=== PATIENT | female | born 1990 | race Caucasian/White ===

== ENCOUNTER 2017-01-23 17:43 | Emergency (ER) | payer BC, MEDICAID ==
[2017-01-23 18:00] VITALS: BP 157/106
[2017-01-23] MEDS ORDERED: Acetaminophen/HYDROcodone 325-5 MG Tab PO ONE (18:28)
--- NOTE | 2017-01-23 18:35 | EDM.PDOC ---
ED HPI LOWER BACK PAIN/INJURY - General Chief Complaint: Back Pain or Injury Stated Complaint: LOWER BACK PAIN Time Seen by Provider: 01/23/17 18:07 Source of Information: Reports: Patient, RN notes reviewed - History of Present Illness INITIAL COMMENTS - FREE TEXT/NARRATIVE: 26 old female comes in with back pain. She states she twisted her body getting into or out of a car with sudden onset of left mid back. Pain does not radiate. It is not bad at rest but she states the pain is "severe with any type of motion. There's been no fall or injury. She has had similar back pains in the past. She did take some Excedrin a while ago and getting some but "not a lot of relief". She claims she is allergic to anti-inflammatories. She states that she breaks out in a rash. 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: Reports: 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 Neurological History: Reports: Headaches, chronic, Migraines - Past Surgical History HEENT Surgical History: Reports: Tonsillectomy GI Surgical History: Reports: Other (see below) Other GI Surgeries/Procedures: EXPLORATORY LAP Social & Family History - Family History Cardiac: Reports: Hypertension Endocrine/Metabolic: Reports: Diabetes, type II Oncologic: Reports: Leukemia - Tobacco Use Smoking Status *Q: Current Some Day Smoker Years of Tobacco use: 5 Packs/Tins Daily: 0.5 Used Tobacco, but Quit: No Second Hand Smoke Exposure: No - Caffeine Use Caffeine Use: Reports: Energy drinks, Soda - Alcohol Use Days Per Week of Alcohol Use: 0 - Recreational Drug Use Recreational Drug Use: No Drug Use in Last 12 Months: No ED ROS GENERAL - Review of Systems Review Of Systems: See Below Constitutional: Denies: fever, chills, diaphoresis HEENT: Reports: No symptoms Respiratory: Denies: Shortness of Breath, Pleuritic Chest Pain Cardiovascular: Denies: Chest pain GI/Abdominal: Denies: Abdominal pain, Nausea, Vomiting Musculoskeletal: Reports: back pain Neurological: Denies: Numbness, Tingling ED EXAM,LOWER BACK PAIN/INJURY - Physical Exam Exam: See Below General Appearance: alert, mild distress Throat/Mouth: Normal inspection Head: atraumatic Neck: supple, full range of motion Respiratory/Chest: lungs clear, normal breath sounds Cardiovascular: regular rate, rhythm Back Exam: paraspinal tenderness (Left mid back). No: CVA tenderness (L), CVA tenderness (R), vertebral tenderness Extremities: normal inspection, normal range of motion Neurological: alert, no motor/sensory deficits Course - Vital Signs Last Recorded V/S: Last Vital Signs Temp 98.0 F 01/23/17 17:56 Pulse 100 01/23/17 17:56 Resp 20 01/23/17 17:56 BP 157/106 H 01/23/17 17:56 Pulse Ox 100 01/23/17 17:56 - Orders/Labs/Meds Meds: Medications Discontinued Medications Generic Name Dose Route Start Last Admin Trade Name Latha PRN Reason Stop Dose Admin Hydrocodone Bitart/Acetaminophen 1 tab 01/23/17 18:28 01/23/17 18:40 [place] 325-5 Mg PO 01/23/17 18:29 1 tab ONETIME ONE Administration Departure - Departure Time of Disposition: 18:33 Disposition: Home, Self-Care 01 Condition: fair Clinical Impression: Strain of mid-back Qualifiers: Encounter type: initial encounter Qualified Code(s): S29.012A - Strain of muscle and tendon of back wall of thorax, initial encounter Prescriptions: LORazepam [Ativan] 0.5 mg PO TID #14 tablet Instructions: Mid-Back Strain With Rehab-[facility] Referrals: Selena Reyes PA-C [Primary Care Provider] - Forms: ED Department Discharge Additional Instructions: rest back, alternate ice and heat as discussed, ativan 0.5 mg 3 times daily, tylenol in between doses 2 to 3 times daily, follow up clinic if not much better within 4 to 5 days as expected.
== END 2017-01-23 18:50 | disposition home or self-care (01) ==
LOC: JD.ED 17:43
DX: S29.012A Strain of muscle and tendon of back wall of thorax, initial encounter (principal); I10 Essential (primary) hypertension; F17.210 Nicotine dependence, cigarettes, uncomplicated; Z98.890 Other specified postprocedural states; Z88.0 Allergy status to penicillin; Z88.6 Allergy status to analgesic agent; X50.1XXA Overexertion from prolonged static or awkward postures, initial encounter; Y93.89 Activity, other specified
CPT/HCPCS: 99283; A9270

== ENCOUNTER 2017-02-11 14:07 | Emergency (ER) | payer BC ==
[2017-02-11 14:22] VITALS: BP 142/105
--- NOTE | 2017-02-11 14:44 | EDM.PDOC ---
ED HPI ENT - General Chief Complaint: ENT Problem Stated Complaint: TOOTH PAIN Time Seen by Provider: 02/11/17 14:30 Source of Information: Reports: Patient History Limitations: Reports: No limitations - History of Present Illness INITIAL COMMENTS - FREE TEXT/NARRATIVE: The patient presents with left lower jaw dental pain. This has been going on for about 3 days. The past 2 days are the worse. She has no fever or chills. Timing/Duration: Reports: Day(s): (3) Severity: severe Location: Reports: mouth (Left lower jaw) Quality: Reports: Sharp Improves with: Reports: None Worsens with: Reports: None Associated Symptoms: Reports: no other symptoms - Related Data Allergies/ADRs: Allergies Allergy/AdvReac Type Severity Reaction Status Date / Time ibuprofen Allergy Stomach Verified 01/23/17 18:00 Upset Penicillins Allergy Hives Verified 01/23/17 18:00 Home Meds: Home Meds Labetalol HCl [Labetalol] 300 mg PO BID 08/29/14 [History] LORazepam [Ativan] 0.5 mg PO TID #14 tablet 01/23/17 [Rx] Clindamycin HCl [Cleocin HCl] 300 mg PO TID #30 capsule 02/11/17 [Rx] oxyCODONE HCl/Acetaminophen [Percocet 5-325 mg Tablet] 1 - 2 each PO Q6HR PRN # 20 tablet 02/11/17 [Rx] Past Medical History Cardiovascular History: Reports: Hypertension Other Genitourinary History: 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 Neurological History: Reports: Headaches, chronic, Migraines - Past Surgical History HEENT Surgical History: Reports: Tonsillectomy GI Surgical History: Reports: Other (see below) Other GI Surgeries/Procedures: EXPLORATORY LAP Social & Family History - Family History Cardiac: Reports: Hypertension Endocrine/Metabolic: Reports: Diabetes, type II Oncologic: Reports: Leukemia - Tobacco Use Smoking Status *Q: Current Every Day Smoker Years of Tobacco use: 9 Packs/Tins Daily: 0.3 Used Tobacco, but Quit: No Second Hand Smoke Exposure: No - Caffeine Use Caffeine Use: Reports: Soda - Alcohol Use Days Per Week of Alcohol Use: 0 - Recreational Drug Use Recreational Drug Use: No Drug Use in Last 12 Months: No ED ROS ENT - Review of Systems Review Of Systems: See Below Constitutional: Reports: no symptoms HEENT: Reports: Dental pain Respiratory: Reports: No Symptoms Cardiovascular: Reports: No symptoms Endocrine: Reports: no symptoms GI/Abdominal: Reports: No symptoms : Reports: no symptoms Musculoskeletal: Reports: no symptoms Skin: Reports: no symptoms Neurological: Reports: No Symptoms ED EXAM, ENT - Physical Exam Exam: See Below Exam Limited By: No limitations General Appearance: alert, no apparent distress Ears: normal external exam Nose: normal inspection Mouth/Throat: Other (Pain upon palpation to the left lower jaw at the premolars. Cavities noted and erythema of the gum line.) Course - Vital Signs Last Recorded V/S: Last Vital Signs Temp 97.6 F 02/11/17 14:21 Pulse 95 02/11/17 14:21 Resp 20 02/11/17 14:21 BP 142/105 H 02/11/17 14:21 Pulse Ox 100 02/11/17 14:21 Departure - Departure Time of Disposition: 14:40 Disposition: Home, Self-Care 01 Condition: good Clinical Impression: Dental caries, Pain, dental, Gingivitis, chronic, Dental abscess Prescriptions: oxyCODONE HCl/Acetaminophen [Percocet 5-325 mg Tablet] 1 - 2 each PO Q6HR PRN # 20 tablet PRN Reason: Pain Clindamycin HCl [Cleocin HCl] 300 mg PO TID #30 capsule Referrals: Selena Reyes PA-C [Primary Care Provider] - Forms: ED Department Discharge Additional Instructions: Take the clindamycin 3 times per day and the percocet every 6 hours as needed for pain. Follow up with your dentist within the week.
== END 2017-02-11 14:55 | disposition home or self-care (01) ==
LOC: JD.ED 14:07
DX: K04.7 Periapical abscess without sinus (principal); K02.9 Dental caries, unspecified; K05.10 Chronic gingivitis, plaque induced; Z88.0 Allergy status to penicillin; Z79.899 Other long term (current) drug therapy; I10 Essential (primary) hypertension; F17.210 Nicotine dependence, cigarettes, uncomplicated
CPT/HCPCS: 99282; 99283

== ENCOUNTER 2017-03-02 17:34 | Emergency (ER) | payer BC, MEDICAID ==
[2017-03-02 17:45] VITALS: BP 135/96
--- NOTE | 2017-03-02 18:06 | EDM.PDOC ---
ED HPI GENERAL MEDICAL PROBLEM - General Chief Complaint: ENT Problem Stated Complaint: Dental pain Time Seen by Provider: 03/02/17 17:45 Source of Information: Reports: Patient, RN Notes Reviewed History Limitations: Reports: No Limitations - History of Present Illness INITIAL COMMENTS - FREE TEXT/NARRATIVE: 26 year old female presents to the ED with left lower dental pain. She saw a Dentist in [place] on Monday of this week. They attempted to pull the tooth but it broke into several pieces so they set her up for an appointment next week to have it "cut out." She reports increasing left facial swelling, drainage , foul taste in mouth, and increased pain for the past two days. No throat pain , fever, or chills. She has been taking Tylenol for pain. 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 Neurological History: Reports: Headaches, Chronic, Migraines - Past Surgical History HEENT Surgical History: Reports: Tonsillectomy GI Surgical History: Reports: Other (See Below) Other GI Surgeries/Procedures: laparoscopy Social & Family History - Family History Cardiac: Reports: Hypertension Endocrine/Metabolic: Reports: Diabetes, type II Oncologic: Reports: Leukemia - Tobacco Use Smoking Status *Q: Current Every Day Smoker Years of Tobacco use: 9 Packs/Tins Daily: 0.2 Used Tobacco, but Quit: No Second Hand Smoke Exposure: No - Caffeine Use Caffeine Use: Reports: Soda - Alcohol Use Days Per Week of Alcohol Use: 0 - Recreational Drug Use Recreational Drug Use: No Drug Use in Last 12 Months: No ED ROS ENT - Review of Systems Review Of Systems: See Below Constitutional: Reports: No Symptoms. Denies: Fever, Chills HEENT: Reports: Dental Pain. Denies: Throat Pain Respiratory: Reports: No Symptoms. Denies: Shortness of Breath Cardiovascular: Reports: No Symptoms. Denies: Chest Pain GI/Abdominal: Reports: No Symptoms. Denies: Nausea, Vomiting ED EXAM, ENT - Physical Exam Exam: See Below Exam Limited By: No Limitations General Appearance: Alert, WD/WN, No Apparent Distress Nose: Normal Inspection, Normal Mucousa Mouth/Throat: Normal Inspection, Normal Oropharynx, Dental Abcess (left lower molar), Dental Tenderness. No: Throat Swelling, Tonsillar Exudates, Tonsillar Swelling Head: Atraumatic, Normocephalic Neck: Normal Inspection, Supple, Full Range of Motion, Lymphadenopathy (L) Respiratory/Chest: No Respiratory Distress, Lungs Clear Cardiovascular: Regular Rate, Rhythm Course - Vital Signs Last Recorded V/S: Last Vital Signs Temp 96.6 F 03/02/17 17:40 Pulse 107 H 03/02/17 17:40 Resp 18 03/02/17 17:40 BP 135/96 H 03/02/17 17:40 Pulse Ox 100 03/02/17 17:40 Departure - Departure Time of Disposition: 18:02 Disposition: Home, Self-Care 01 Condition: good Clinical Impression: Dental caries, Dental abscess - Discharge Information Prescriptions: Clindamycin HCl 300 mg PO Q8H #30 capsule traMADol [Ultram] 50 mg PO Q6H PRN #10 tablet PRN Reason: Pain (Moderate 4-6) Referrals: Selena Reyes PA-C [Primary Care Provider] - Forms: ED Department Discharge Additional Instructions: Follow-up with dentist as scheduled Clindamycin 300mg every 8 hours for 10 days Tylenol 1000mg every 8 hours as needed for mild pain and/or fever, swelling Tramadol 1 tab every 6 hours as needed for pain Warm moist compresses to face for comfort
== END 2017-03-02 18:23 | disposition home or self-care (01) ==
LOC: JD.ED 17:34
DX: K04.7 Periapical abscess without sinus (principal); K02.9 Dental caries, unspecified; I10 Essential (primary) hypertension; Z98.890 Other specified postprocedural states; F17.210 Nicotine dependence, cigarettes, uncomplicated; Z79.899 Other long term (current) drug therapy; Z88.0 Allergy status to penicillin; Z88.6 Allergy status to analgesic agent
CPT/HCPCS: 99282; 99283

== ENCOUNTER 2017-03-14 13:55 | Emergency (ER) | payer BC, MEDICAID ==
[2017-03-14 14:03] VITALS: BP 151/87
[2017-03-14] MEDS ORDERED: Sodium Chloride 0.9% 10 ML Syringe FLUSH PRN (14:18)
[2017-03-14] MEDS ORDERED: Acetaminophen 325 MG Tab PO ONE (14:18)
[2017-03-14] MEDS ORDERED: diphenhydrAMINE 50 MG/ML SDV IVPUSH ONE (14:18)
[2017-03-14] MEDS ORDERED: Metoclopramide 10 MG/2 ML SDV IVPUSH ONE (14:18)
--- NOTE | 2017-03-14 14:30 | EDM.PDOC ---
ED HPI GENERAL MEDICAL PROBLEM - General Chief Complaint: Headache Stated Complaint: HEADACHE X 2 DAYS Time Seen by Provider: 03/14/17 14:02 Source of Information: Reports: Patient, RN Notes Reviewed - History of Present Illness INITIAL COMMENTS - FREE TEXT/NARRATIVE: 26 year old female comes in with Brenner, started 2 days ago, frontal, bilat, throbbing, similar to previous Brenner's that she has had. Mild nausea, no vomiting. Ran out of her amitryptilene about 4 days ago. Also "left her tramadol at an out of town location" Treatments FINAL APPLICATION REVIEWER: Reports: Acetaminophen Frontal Headache Pain Score (Numeric/FACES): 8 - Related Data Allergies Allergy/AdvReac Type Severity Reaction Status Date / Time ibuprofen Allergy Stomach Verified 03/02/17 17:44 Upset Penicillins Allergy Hives Verified 03/02/17 17:44 Home Meds: Home Meds Labetalol HCl [Labetalol] 200 mg PO BID 08/29/14 [History] Amitriptyline [Elavil] 25 mg PO DAILY 03/02/17 [History] Clindamycin HCl 300 mg PO Q8H #30 capsule 03/02/17 [Rx] traMADol [Ultram] 50 mg PO Q6H PRN #10 tablet 03/02/17 [Rx] Amitriptyline [Elavil] 25 mg PO BEDTIME #10 tablet 03/14/17 [Rx] Past Medical History Cardiovascular History: Reports: Hypertension Other Genitourinary History: 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 Neurological History: Reports: Headaches, Chronic, Migraines - Past Surgical History HEENT Surgical History: Reports: Tonsillectomy GI Surgical History: Reports: Other (See Below) Other GI Surgeries/Procedures: laparoscopy Social & Family History - Family History Family Medical History: Noncontributory Cardiac: Reports: Hypertension Endocrine/Metabolic: Reports: Diabetes, type II Oncologic: Reports: Leukemia - Tobacco Use Smoking Status *Q: Current Every Day Smoker Years of Tobacco use: 13 Packs/Tins Daily: 0.1 Used Tobacco, but Quit: No Second Hand Smoke Exposure: No - Caffeine Use Caffeine Use: Reports: Coffee, Soda - Alcohol Use Days Per Week of Alcohol Use: 0 - Recreational Drug Use Recreational Drug Use: No Drug Use in Last 12 Months: No ED ROS GENERAL - Review of Systems Review Of Systems: See Below Constitutional: Denies: Fever, Chills HEENT: Denies: Sinus Problem, Throat Pain Respiratory: Reports: No Symptoms Cardiovascular: Denies: Chest Pain GI/Abdominal: Reports: Nausea. Denies: Abdominal Pain, Diarrhea, Vomiting Musculoskeletal: Reports: No Symptoms Skin: Reports: No Symptoms Neurological: Reports: Headache. Denies: Numbness, Tingling, Trouble Speaking, Weakness - Physical Exam Exam: See Below General Appearance: Alert, Mild Distress Eye Exam: Bilateral Eye: PERRL Nose: Normal Inspection Throat/Mouth: Normal Inspection, Normal Oropharynx Head Exam: Atraumatic. No: Facial Swelling Respiratory/Chest: No Respiratory Distress, Lungs Clear, Normal Breath Sounds Cardiovascular: Regular Rate, Rhythm Neuro Exam (Abbreviated): Alert, Oriented, No Motor/Sensory Deficits Extremities: Normal Inspection, Normal Range of Motion Skin Exam: Warm, Dry, Normal Color. No: Rash Course - Vital Signs Last Recorded V/S: Last Vital Signs Temp 97.2 F 03/14/17 14:00 Pulse 100 03/14/17 14:00 Resp 16 03/14/17 14:00 BP 151/87 H 03/14/17 14:00 Pulse Ox 100 03/14/17 14:00 - Orders/Labs/Meds Orders: Active Orders 24 hr Category Date Time Status Peripheral IV Care [RC] . DIRECTED Care 03/14/17 14:19 Active Sodium Chloride 0.9% [Saline Flush] Med 03/14/17 14:18 Active 10 ml FLUSH ASDIRECTED PRN Peripheral IV Insertion Adult [OM.PC] Stat Oth 03/14/17 14:18 Ordered Medication Orders Sodium Chloride (Saline Flush) 10 ml FLUSH ASDIRECTED PRN PRN Reason: Keep Vein Open Last Admin: 03/14/17 15:18 Dose: 10 ml Meds: Medications Generic Name Dose Route Start Last Admin Trade Name Freq PRN Reason Stop Dose Admin Sodium Chloride 10 ml 03/14/17 14:18 03/14/17 15:18 Saline Flush FLUSH 10 ml ASDIRECTED PRN Administration Keep Vein Open Discontinued Medications Generic Name Dose Route Start Last Admin Trade Name Freq PRN Reason Stop Dose Admin Acetaminophen 975 mg 03/14/17 14:18 03/14/17 14:45 Tylenol PO 03/14/17 14:19 975 mg NOW ONE Administration Diphenhydramine HCl 50 mg 03/14/17 14:18 03/14/17 15:14 Benadryl IVPUSH 03/14/17 14:19 50 mg ONETIME ONE Administration Metoclopramide HCl 5 mg 03/14/17 14:18 03/14/17 15:12 Reglan IVPUSH 03/14/17 14:19 5 mg ONETIME ONE Administration - Re-Assessments/Exams Free Text/Narrative Re-Assessment/Exam: 03/14/17 15:57 fairly good relief from reglan 5 mg IV, benadryl 50 mg IV, tylenol 975 mg PO. Departure - Departure Time of Disposition: 15:15 Disposition: Home, Self-Care 01 Condition: fair Clinical Impression: Migraine - Discharge Information Prescriptions: Amitriptyline [Elavil] 25 mg PO BEDTIME #10 tablet Instructions: Migraine Headache Referrals: Selena Reyes PA-C [Primary Care Provider] - Forms: ED Department Discharge Additional Instructions: rest, no driving the remainder of today as you have been given sedative medications. Follow up with your medical provider as needed, return to ED as needed. - My Orders Last 24 Hours: My Active Orders 03/14/17 14:18 Sodium Chloride 0.9% [Saline Flush] 10 ml FLUSH ASDIRECTED PRN Peripheral IV Insertion Adult [OM.PC] Stat 03/14/17 14:19 Peripheral IV Care [RC] . DIRECTED - Assessment/Plan Last 24 Hours: My Active Orders 03/14/17 14:18 Sodium Chloride 0.9% [Saline Flush] 10 ml FLUSH ASDIRECTED PRN Peripheral IV Insertion Adult [OM.PC] Stat 03/14/17 14:19 Peripheral IV Care [RC] . DIRECTED
== END 2017-03-14 16:10 | disposition home or self-care (01) ==
LOC: JD.ED 13:55
DX: G43.909 Migraine, unspecified, not intractable, without status migrainosus (principal); I10 Essential (primary) hypertension; F17.210 Nicotine dependence, cigarettes, uncomplicated; Z88.0 Allergy status to penicillin; Z88.8 Allergy status to other drugs, medicaments and biological substances; Z79.899 Other long term (current) drug therapy; Z98.890 Other specified postprocedural states
CPT/HCPCS: 96372; 99283; A9270; J1200; J2765; J7050; 99284

== ENCOUNTER 2017-05-19 19:01 | Emergency (ER) | payer BC ==
[2017-05-19 19:16] VITALS: BP 161/97
--- NOTE | 2017-05-19 19:34 | EDM.PDOC ---
ED HPI GENERAL MEDICAL PROBLEM - General Chief Complaint: ENT Problem Stated Complaint: FRONT TOOTHACHE Time Seen by Provider: 05/19/17 19:28 - History of Present Illness INITIAL COMMENTS - FREE TEXT/NARRATIVE: 26-year-old female presents emergency room with a worsening toothache. This started about a week ago progressively getting worse she is scheduled to see her dentist on Monday. Patient has lots of dental problems she's getting ready to have oral surgery remove most of her lower teeth. The tooth concerned this evening is left upper. Patient denies any facial swelling fevers or chills. 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 Left Upper Tooth/Teeth Pain Score (Numeric/FACES): 9 - Related Data Allergies Allergy/AdvReac Type Severity Reaction Status Date / Time ibuprofen Allergy Stomach Verified 05/19/17 19:09 Upset Penicillins Allergy Hives Verified 05/19/17 19:09 Home Meds: Home Meds Labetalol HCl [Labetalol] 200 mg PO BID 08/29/14 [History] Amitriptyline [Elavil] 25 mg PO BEDTIME #10 tablet 03/14/17 [Rx] Acetaminophen/HYDROcodone [[place] 325-5 MG] 1 tab PO Q6H #10 tablet 05/19/17 [Rx] Clindamycin HCl 150 mg PO Q6H #40 capsule 05/19/17 [Rx] Past Medical History Cardiovascular History: Reports: Hypertension Respiratory History: Reports: None Other Genitourinary History: 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 Neurological History: Reports: Headaches, Chronic, Migraines Psychiatric History: Reports: None Endocrine/Metabolic History: Reports: None Hematologic History: Reports: None Immunologic History: Reports: None Oncologic (Cancer) History: Reports: None Dermatologic History: Reports: None - Infectious Disease History Infectious Disease History: Reports: None - Past Surgical History HEENT Surgical History: Reports: Tonsillectomy GI Surgical History: Reports: Other (See Below) Other GI Surgeries/Procedures: laparoscopy Social & Family History - Family History Family Medical History: Noncontributory Cardiac: Reports: Hypertension Endocrine/Metabolic: Reports: Diabetes, type II Oncologic: Reports: Leukemia - Tobacco Use Smoking Status *Q: Current Every Day Smoker Years of Tobacco use: 13 Packs/Tins Daily: 1 Used Tobacco, but Quit: No Second Hand Smoke Exposure: No - Caffeine Use Caffeine Use: Reports: Soda - Alcohol Use Days Per Week of Alcohol Use: 0 - Recreational Drug Use Recreational Drug Use: No Drug Use in Last 12 Months: No ED ROS ENT - Review of Systems Review Of Systems: See Below HEENT: Reports: Dental Pain Respiratory: Reports: No Symptoms Cardiovascular: Reports: No Symptoms GI/Abdominal: Reports: No Symptoms ED EXAM, ENT - Physical Exam Exam: See Below Exam Limited By: No Limitations General Appearance: Alert, No Apparent Distress Eye Exam: Bilateral Eye: Normal Inspection Ears: Normal External Exam, Normal Canal, Hearing Grossly Normal, Normal TMs Nose: Normal Inspection, Normal Mucousa, No Blood Mouth/Throat: Normal Inspection, Normal Gums, Normal Lips, Other (She has multiple missing teeth she has multiple teeth in poor health left upper incisor erythematous base with some swelling nothing to drain at this time) Head: Atraumatic, Normocephalic Respiratory/Chest: No Respiratory Distress, Lungs Clear, Normal Breath Sounds Cardiovascular: Regular Rate, Rhythm, No Edema, No Murmur Course - Vital Signs Last Recorded V/S: Last Vital Signs Temp 36.7 C 05/19/17 19:11 Pulse 87 05/19/17 19:11 Resp 16 05/19/17 19:11 BP 161/97 H 05/19/17 19:11 Pulse Ox 100 05/19/17 19:11 Departure - Departure Time of Disposition: 19:30 Disposition: Home, Self-Care 01 Clinical Impression: Dental caries - Discharge Information Prescriptions: Acetaminophen/HYDROcodone [[place] 325-5 MG] 1 tab PO Q6H #10 tablet Clindamycin HCl 150 mg PO Q6H #40 capsule Forms: ED Department Discharge Additional Instructions: Return to the emergency room with any questions problems worsening symptoms. Follow up with her dentist on Monday as scheduled. You been started on clindamycin this is an antibiotic take one every 6 hours until gone if he develops severe diarrhea seek medical care. He was given a few [place] to take one every 6 hours as needed for pain allow 12 hours after using this medication before driving or returning to work
== END 2017-05-19 19:47 | disposition home or self-care (01) ==
LOC: JD.ED 19:01
DX: K02.9 Dental caries, unspecified (principal); I10 Essential (primary) hypertension; F17.210 Nicotine dependence, cigarettes, uncomplicated; Z88.6 Allergy status to analgesic agent; Z88.0 Allergy status to penicillin; Z98.890 Other specified postprocedural states
CPT/HCPCS: 99283

== ENCOUNTER 2017-10-02 17:35 | Emergency (ER) | payer BC, MEDICAID ==
[2017-10-02 17:55] VITALS: BP 154/104
[2017-10-02] MEDS ORDERED: Acetaminophen/HYDROcodone 325-5 MG Tab PO ONE (18:16)
--- NOTE | 2017-10-02 18:22 | EDM.PDOC ---
ED HPI GENERAL MEDICAL PROBLEM - General Chief Complaint: Lower Extremity Injury/Pain Stated Complaint: L FOOT INJURY Time Seen by Provider: 10/02/17 18:10 Source of Information: Reports: Patient History Limitations: Reports: No Limitations - History of Present Illness INITIAL COMMENTS - FREE TEXT/NARRATIVE: Patient is a 27-year-old female with a history of fifth metatarsal fracture that was diagnosed this past August. Initial injury occurred the first week in August. Patient walked on the broken foot for almost 3 weeks before it was diagnosed as a fracture. Patient was placed in a walking boot by Dr. Bailey and has a follow-up appointment coming up here with him. Patient has not been utilizing any crutches to ambulate. States today while walking down the stairs of her residence she tripped due to the walking boot being in too large causing worsening pain to the left fifth metatarsal. She was able to ambulate into the ED without a crutches with a limp present. She has not taken anything for the pain. Denies any additional injuries to the affected extremity. 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: Reports: 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 Neurological History: Reports: Headaches, Chronic, Migraines Psychiatric History: Reports: None Endocrine/Metabolic History: Reports: None Hematologic History: Reports: None Immunologic History: Reports: None Oncologic (Cancer) History: Reports: None Dermatologic History: Reports: None - Infectious Disease History Infectious Disease History: Reports: None - Past Surgical History HEENT Surgical History: Reports: Tonsillectomy GI Surgical History: Reports: Other (See Below) Other GI Surgeries/Procedures: laparoscopy Social & Family History - Family History Family Medical History: Noncontributory Cardiac: Reports: Hypertension Endocrine/Metabolic: Reports: Diabetes, type II Oncologic: Reports: Leukemia - Tobacco Use Smoking Status *Q: Current Every Day Smoker Years of Tobacco use: 9 Packs/Tins Daily: 0.2 Used Tobacco, but Quit: No Second Hand Smoke Exposure: No - Caffeine Use Caffeine Use: Reports: Soda - Alcohol Use Days Per Week of Alcohol Use: 0 - Recreational Drug Use Recreational Drug Use: No Drug Use in Last 12 Months: No Review of Systems - Review of Systems Review Of Systems: ROS reveals no pertinent complaints other than HPI. ED EXAM, GENERAL - Physical Exam Exam: See Below Exam Limited By: No Limitations General Appearance: Alert, WD/WN, No Apparent Distress Ears: Hearing Grossly Normal Nose: Normal Inspection Throat/Mouth: Normal Voice, No Airway Compromise Neck: Normal Inspection, Supple Respiratory/Chest: No Respiratory Distress, No Accessory Muscle Use Cardiovascular: Normal Peripheral Pulses, Regular Rate, Rhythm Peripheral Pulses: 4+: Posterior Tibial (L) Extremities: Normal Inspection, Normal Range of Motion, No Pedal Edema, Normal Capillary Refill, Other (Tenderness noted along the distal aspect of the fifth metatarsal. No sensory motor deficits noted.) Neurological: Alert, Oriented, CN II-XII Intact, Normal Cognition, No Motor/ Sensory Deficits Psychiatric: Normal Affect, Normal Mood Skin Exam: Warm, Dry, Intact, Normal Color, No Rash Course - Vital Signs Last Recorded V/S: Last Vital Signs Temp 97.7 F 10/02/17 17:48 Pulse 104 H 10/02/17 17:48 Resp 18 10/02/17 17:48 BP 154/104 H 10/02/17 17:48 Pulse Ox 99 10/02/17 17:48 - Orders/Labs/Meds Meds: Medications Discontinued Medications Generic Name Dose Route Start Last Admin Trade Name Latha PRN Reason Stop Dose Admin Hydrocodone Bitart/Acetaminophen 1 tab 10/02/17 18:16 10/02/17 18:49 [place] 325-5 Mg PO 10/02/17 18:17 1 tab ONETIME ONE Administration - Re-Assessments/Exams Free Text/Narrative Re-Assessment/Exam: Patient complaining of pain to the left foot with concerns of worsening pain upon manipulation with x-ray. Ordered [place] one tab by mouth and x-ray of the left foot 3 view. Will have a walking boot that is appropriately sized for the patient's foot applied. She has Crutches at home thus will not require set from the ED. 10/02/17 18:37 Walking boot we have in the ED is the same size as the one the patient is wearing thus unable to change out. X-ray of the left foot did not reveal any significant changes to the fracture located at the distal aspect of the fifth metatarsal in comparison to x-rays obtained of left foot September 27, 2017. Will discharge patient home. Departure - Departure Time of Disposition: 18:51 Disposition: Home, Self-Care 01 Condition: Good Clinical Impression: Fracture of fifth metatarsal bone of left foot Qualifiers: Encounter type: subsequent encounter Fracture type: closed Fracture alignment: nondisplaced Fracture healing: with nonunion Qualified Code(s): S92.355K - Nondisplaced fracture of fifth metatarsal bone, left foot, subsequent encounter for fracture with nonunion - Discharge Information Instructions: Metatarsal Fracture With Rehab-Sports[facility] Referrals: Orlando Bailey MD [Physician] - Forms: ED Department Discharge Additional Instructions: You are to be nonweightbearing for the next 5 days advancing thereafter. Wear the walking boot until evaluated by Dr. Bailey. Apply ice to the affected extremity 4 times a day, 30 minutes in duration, do not apply ice directly on the skin. Elevate to reduce any swelling and pain. Take Tylenol for pain. Refrain from any activities that cause worsening pain. Return to ED as needed for any new or worsening symptoms. Do not drive this evening since receiving a sedative medication while in the ED.
--- NOTE | 2017-10-04 08:30 | CR ---
Left foot: Four views of the left foot were obtained. Comparison: Previous left foot exam of 09/27/17. Stable fracture identified within the distal fifth metatarsal head. Mild callus is seen but no bridging callus is identified. No additional fracture or other abnormality is appreciated. Impression: 1. Distal fifth metatarsal fracture with small amount of callus which does not appear bridging. This finding is seen on prior left foot exam. 2. No acute abnormality is seen. Diagnostic code #3 MTDD
== END 2017-10-02 18:51 | disposition home or self-care (01) ==
LOC: JD.ED 17:35
DX: S92.355K Nondisplaced fracture of fifth metatarsal bone, left foot, subsequent encounter for fracture with nonunion (principal); Z88.0 Allergy status to penicillin; Z88.8 Allergy status to other drugs, medicaments and biological substances; W01.0XXD Fall on same level from slipping, tripping and stumbling without subsequent striking against object, subsequent encounter
CPT/HCPCS: 73630; 99283; A9270

== ENCOUNTER 2017-10-21 19:41 | Emergency (ER) | payer BC, MEDICAID ==
[2017-10-21 19:51] VITALS: BP 132/97
--- NOTE | 2017-10-21 21:33 | EDM.PDOC ---
ED HPI GENERAL MEDICAL PROBLEM - General Chief Complaint: Back Pain or Injury Stated Complaint: BACK PAIN Time Seen by Provider: 10/21/17 21:13 Source of Information: Reports: Patient History Limitations: Reports: No Limitations - History of Present Illness INITIAL COMMENTS - FREE TEXT/NARRATIVE: This is a 27-year-old female. She has a long history of lower back problems and normally she takes Robaxin for this but she ran out of her medications. She was apparently shampooing carpet last night and started having increasing low back pain. She says she has a right sciatica but not really flared up even though her lower back is bothering her. She denies any other acute symptoms and is requesting some medications for her back. Lower Back Pain Score (Numeric/FACES): 8 - Related Data Allergies Allergy/AdvReac Type Severity Reaction Status Date / Time ibuprofen Allergy Stomach Verified 10/21/17 19:51 Upset ketorolac [From Toradol] Allergy Rash Verified 10/21/17 22:01 Penicillins Allergy Hives Verified 10/21/17 19:51 Home Meds: Home Meds Labetalol HCl [Labetalol] 100 mg PO TID 08/29/14 [History] Amitriptyline [Elavil] 25 mg PO BEDTIME #10 tablet 03/14/17 [Rx] Methocarbamol [Robaxin] 500 mg PO Q8H PRN #12 tablet 10/21/17 [Rx] Past Medical History Cardiovascular History: Reports: Hypertension Respiratory History: Reports: None Other Genitourinary History: 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: Reports: 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 Neurological History: Reports: Headaches, Chronic, Migraines Psychiatric History: Reports: Anxiety Endocrine/Metabolic History: Reports: None Hematologic History: Reports: None Immunologic History: Reports: None Oncologic (Cancer) History: Reports: None Dermatologic History: Reports: None - Infectious Disease History Infectious Disease History: Reports: None - Past Surgical History HEENT Surgical History: Reports: Tonsillectomy GI Surgical History: Reports: Other (See Below) Other GI Surgeries/Procedures: laparoscopy Social & Family History - Family History Family Medical History: Noncontributory Cardiac: Reports: Hypertension Endocrine/Metabolic: Reports: Diabetes, type II Oncologic: Reports: Leukemia - Tobacco Use Smoking Status *Q: Current Every Day Smoker Years of Tobacco use: 15 Packs/Tins Daily: 0.2 Used Tobacco, but Quit: No Second Hand Smoke Exposure: No - Caffeine Use Caffeine Use: Reports: Soda - Alcohol Use Days Per Week of Alcohol Use: 0 - Recreational Drug Use Recreational Drug Use: No Drug Use in Last 12 Months: No ED ROS GENERAL - Review of Systems Review Of Systems: See Below Constitutional: Reports: Fever, Chills HEENT: Reports: No Symptoms Respiratory: Reports: No Symptoms Cardiovascular: Reports: No Symptoms Endocrine: Reports: No Symptoms GI/Abdominal: Reports: No Symptoms : Reports: No Symptoms Musculoskeletal: Reports: Other (As per history of present illness) Skin: Reports: No Symptoms Neurological: Reports: No Symptoms Psychiatric: Reports: No Symptoms Hematologic/Lymphatic: Reports: No Symptoms ED EXAM,LOWER BACK PAIN/INJURY - Physical Exam Exam: See Below Exam Limited By: No Limitations General Appearance: Alert, WD/WN, No Apparent Distress Ears: Normal External Exam Nose: Normal Inspection Throat/Mouth: Normal Inspection, Normal Lips, Normal Voice, No Airway Compromise Head: Normocephalic Neck: Supple Respiratory/Chest: No Respiratory Distress, Lungs Clear, Normal Breath Sounds Cardiovascular: Regular Rate, Rhythm, No Murmur Back Exam: Normal Inspection, Other (When I walked in the room the patient was lying down and she quickly sat up and pushed up with her arms and bent her waist 90 in order to sit up correctly, there is no hesitation or movement, when I examined her back she twisted to the right with her upper body so that I could examine her lower back and did not appear to have any hesitation in doing so, she might have some mild paraspinal muscle soreness on palpation but she is able to bend twist and lay back down on the bed without noticeable hesitation or pain, she denies any pain down her legs but she says she has some mild right buttocks tenderness) Extremities: Normal Inspection, Normal Range of Motion Neurological: Alert, Normal Mood/Affect Psychiatric: Normal Affect, Normal Mood Skin Exam: Warm, Dry Course - Vital Signs Last Recorded V/S: Last Vital Signs Temp 98.4 F 10/21/17 19:48 Pulse 98 10/21/17 19:48 Resp 13 10/21/17 19:48 BP 132/97 H 10/21/17 19:48 Pulse Ox 98 10/21/17 19:48 - Orders/Labs/Meds Meds: Medications Discontinued Medications Generic Name Dose Route Start Last Admin Trade Name Latha PRN Reason Stop Dose Admin Ketorolac Tromethamine 60 mg 10/21/17 21:45 10/21/17 22:05 Toradol IM 10/21/17 21:46 Not Given ONETIME ONE - Re-Assessments/Exams Free Text/Narrative Re-Assessment/Exam: 10/22/17 07:00 I offered the patient a Toradol shot and at the time it was not in her allergy list but she says that it makes her have a rash. I explained to her I will not provide any narcotic shots for her low back pain since she seems to be at ease moving about on the stretcher without difficulty and propping herself up with her arms without any care about her lower back. After that she did not want to sign her discharge papers but she did because she wanted the Robaxin. Departure - Departure Time of Disposition: 21:29 Disposition: Home, Self-Care 01 Condition: Good Clinical Impression: Muscle spasm, Drug-seeking behavior Lumbar strain Qualifiers: Encounter type: initial encounter Qualified Code(s): S39.012A - Strain of muscle, fascia and tendon of lower back, initial encounter - Discharge Information Prescriptions: Methocarbamol [Robaxin] 500 mg PO Q8H PRN #12 tablet PRN Reason: Spasms Instructions: Muscle Strain, [id number] Referrals: PCP,None [Primary Care Provider] - Forms: ED Department Discharge Additional Instructions: Use ice to your back in for having active spasms otherwise use heat, avoid any lifting or bending aggravates your lower back, take the Robaxin as needed for the muscle spasms, follow-up with your family physician this week if needed, return to the ER if needed
[2017-10-21] MEDS ORDERED: Ketorolac 60 MG/2 ML SDV IM ONE (21:45)
== END 2017-10-21 21:57 | disposition home or self-care (01) ==
LOC: JD.ED 19:41
DX: S39.012A Strain of muscle, fascia and tendon of lower back, initial encounter (principal); F17.210 Nicotine dependence, cigarettes, uncomplicated; Z88.6 Allergy status to analgesic agent; Z88.0 Allergy status to penicillin; Z76.5 Malingerer [conscious simulation]; X58.XXXA Exposure to other specified factors, initial encounter
CPT/HCPCS: 99283

== ENCOUNTER 2017-11-26 13:00 | Emergency (ER) | payer BC ==
[2017-11-26 13:11] VITALS: BP 147/100
[2017-11-26] MEDS ORDERED: traMADol 50 MG Tab PO ONE (13:27)
--- NOTE | 2017-11-26 13:31 | EDM.PDOC ---
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 States she saw Dr. Rollins last week and was diagnosed with bacterial vaginosis and placed on an antibiotic, later states was flagyl. She has been taking medication as prescribed; denies discharge, itching, odor or vaginal irritation. She states pain is "inside" worse to the left side. She also states she had an ultrasound which was "normal", a negative test and negative urinalysis all within the last 5 days. States she is scheduled for "surgery for my endometriosis" on Monday this next week- , with Dr. Rollins. She is declining any lab or urine evaluation. Requesting something for pain. States she is only taking tylenol at home with no relief as she is "allergic to ibuprofen". She has not tried heat, ice or warm tub baths. No other non- medicinal treatments. States she is scheduled for preop with Dr. Rollins on Monday this next week (). Location: Reports: Abdomen, Pelvis Quality: Reports: Ache, Sharp, Stabbing, Throbbing Improves with: Reports: None Worsens with: Reports: None Associated Symptoms: Denies: Fever/Chills, Nausea/Vomiting (no diarrhea) Treatments INSIDE SALES ADVISOR: Reports: Acetaminophen Pelvic Pain Score (Numeric/FACES): 8 - Related Data Allergies Allergy/AdvReac Type Severity Reaction Status Date / Time ibuprofen Allergy Stomach Verified 11/26/17 13:07 Upset ketorolac [From Toradol] Allergy Rash Verified 11/26/17 13:07 Penicillins Allergy Hives Verified 11/26/17 13:07 Home Meds: Home Meds Labetalol HCl [Labetalol] 100 mg PO TID 08/29/14 [History] Amitriptyline [Elavil] 25 mg PO BEDTIME #10 tablet 03/14/17 [Rx] Methocarbamol [Robaxin] 500 mg PO Q8H PRN #12 tablet 10/21/17 [Rx] Past Medical History Cardiovascular History: Reports: Hypertension Respiratory History: Reports: None Other Genitourinary History: 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 History: Reports: 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 Neurological History: Reports: Headaches, Chronic, Migraines Psychiatric History: Reports: Anxiety Endocrine/Metabolic History: Reports: None Hematologic History: Reports: None Immunologic History: Reports: None Oncologic (Cancer) History: Reports: None Dermatologic History: Reports: None - Infectious Disease History Infectious Disease History: Reports: None - Past Surgical History HEENT Surgical History: Reports: Tonsillectomy GI Surgical History: Reports: Other (See Below) Other GI Surgeries/Procedures: laparoscopy Social & Family History - Family History Family Medical History: Noncontributory Cardiac: Reports: Hypertension Endocrine/Metabolic: Reports: Diabetes, type II Oncologic: Reports: Leukemia - Tobacco Use Smoking Status *Q: Current Every Day Smoker Years of Tobacco use: 9 Packs/Tins Daily: 0.2 Used Tobacco, but Quit: No Second Hand Smoke Exposure: No - Caffeine Use Caffeine Use: Reports: Soda - Alcohol Use Days Per Week of Alcohol Use: 0 - Recreational Drug Use Recreational Drug Use: No Drug Use in Last 12 Months: No ED ROS GENERAL - Review of Systems Review Of Systems: See Below Constitutional: Reports: No Symptoms. Denies: Fever Respiratory: Reports: No Symptoms. Denies: Shortness of Breath Cardiovascular: Reports: No Symptoms. Denies: Chest Pain GI/Abdominal: Reports: Abdominal Pain (left lower pelvic pain). Denies: Constipation (last BM this morning), Diarrhea, Hematochezia, Melena, Nausea : Reports: Irregular Menses ("2 periods in October"), Pain (see HPI). Denies : Discharge, Dysuria, Frequency, Hematuria, Urgency, Urinary Retention Neurological: Reports: No Symptoms ED EXAM, RENAL/ - Physical Exam Exam: See Below Exam Limited By: No Limitations General Appearance: Alert, WD/WN, No Apparent Distress Eye Exam: Bilateral Eye: EOMI, PERRL Ears: Normal External Exam, Hearing Grossly Normal Nose: Normal Inspection Throat/Mouth: Normal Inspection, Normal Gums, Normal Voice, Other (poor dentition) Head: Atraumatic, Normocephalic Neck: Normal Inspection Respiratory/Chest: No Respiratory Distress, Lungs Clear, Normal Breath Sounds Cardiovascular: Normal Peripheral Pulses, Regular Rate, Rhythm, No Edema, No Murmur GI/Abdominal: Normal Bowel Sounds, Soft, Non-Tender, No Organomegaly, Other ( states is not tender when pushing on her stomach at present time) (Female) Exam: Deferred (patient declines pelvic exam stating she just had one with Dr. Rollins earlier this week) Rectal (Female) Exam: Deferred Extremities: Normal Inspection, No Pedal Edema, Normal Capillary Refill Neurological: Alert, Oriented, CN II-XII Intact, Normal Cognition Psychiatric: Normal Affect, Normal Mood Skin Exam: Warm, Dry, Intact Course - Vital Signs Last Recorded V/S: Last Vital Signs Temp 97.1 F 11/26/17 13:08 Pulse 95 11/26/17 13:08 Resp 18 11/26/17 13:08 BP 147/100 H 11/26/17 13:08 Pulse Ox 100 11/26/17 13:08 - Orders/Labs/Meds Meds: Medications Discontinued Medications Generic Name Dose Route Start Last Admin Trade Name Freq PRN Reason Stop Dose Admin Tramadol HCl 50 mg 11/26/17 13:27 Ultram PO 11/26/17 13:28 ONETIME ONE - Re-Assessments/Exams Free Text/Narrative Re-Assessment/Exam: 11/26/17 13:41 Reviewed with patient that she had US less than 5 days ago, she states no concerns for ovarian cysts. No need for further imaging at this time. Offered repeat UA and UPT, she declines. Review with patient that this pain is likely related to her endometriosis. I offer her rx for tramadol, nothing stronger. She will be given one tab prior to discharge 50mg and rx for tramadol 50mg 1PO Q6H PRN pain #15. She is encouraged to use heat/ice/warm baths, seek out other nonmedicinal therapies. She is not to drive with medication, states her mother drove her here today and will take her home. She is to follow up with Dr. Rollins as scheduled for preoperative visit on Mon, sooner if pain worsens. Departure - Departure Time of Disposition: 13:28 Disposition: Home, Self-Care 01 Condition: Good Clinical Impression: Pelvic pain - Discharge Information Instructions: 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, Pelvic Pain, Female Referrals: Obi Rollins MD [Primary Care Provider] - Forms: ED Department Discharge Additional Instructions: Tramadol prescription- 1 every 6 hours as needed for pain #15 written Heat or ice to abdomen/pelvis to help with pain Continue tylenol, not to exceed 3,000mg daily Follow up with Dr. Rollins for further evaluation - call clinic in the morning;
== END 2017-11-26 13:43 | disposition home or self-care (01) ==
LOC: JD.ED 13:00
DX: R10.2 Pelvic and perineal pain (principal); I10 Essential (primary) hypertension; F17.210 Nicotine dependence, cigarettes, uncomplicated; Z88.8 Allergy status to other drugs, medicaments and biological substances; Z88.0 Allergy status to penicillin; Z88.6 Allergy status to analgesic agent
CPT/HCPCS: 99284; A9270; 99283

== ENCOUNTER 2017-12-01 09:54 | Day surgery (SDC) | payer BC ==
[~2017-12-01 09:54] MED LIST: Lactated Ringers 1,000 ML IV SCH; Lidocaine 1%/Sod Bicarbonate in NS 8.4% 1 ML Syringe IDERM PRN; Sodium Chloride 0.9% 10 ML Syringe FLUSH PRN
--- NOTE | 2017-12-01 10:02 | PCM.PREANE ---
Preanesthetic Assessment - Anesthesia/Transfusion/Family Hx Anesthesia History: Prior Anesthesia Without Reaction Family History of Anesthesia Reaction: No Transfusion History: No Prior Transfusion(s) Intubation History: Unknown - Review of Systems General: No Symptoms Pulmonary: No Symptoms (Smoker: less than 3 cigarettes/day for 9years) Cardiovascular: No Symptoms (History of HTN) Gastrointestinal: No Symptoms (GERD- with spicy food) Neurological: No Symptoms (motion sickness with long car rides in the back seat. ), Headache (Migraines) Other: Reports: None - Physical Assessment NPO Status Date: 11/30/17 NPO Status Time: 21:00 Pulse: 93 O2 Sat by Pulse Oximetry: 98 Respiratory Rate: 16 Blood Pressure: 135/95 Temperature: 36.4 C Height: 1.55 m Weight: 84.368 kg ASA Class: 2 Mental Status: Alert & Oriented x3 Airway Class: Mallampati = 2 Dentition: Reports: [place](s), Caries (poor dentition noted) Thyro-Mental Finger Breadths: 3 Mouth Opening Finger Breadths: 3 ROM/Head Extension: Full Lungs: Clear to Auscultation, Normal Respiratory Effort, Decreased Breath Sounds (right lower lobe) Cardiovascular: Regular Rate, Regular Rhythm, Murmurs - Allergies Allergies/Adverse Reactions: Allergies Allergy/AdvReac Type Severity Reaction Status Date / Time ketorolac [From Toradol] Allergy Rash Verified 11/30/17 12:09 Penicillins Allergy Hives Verified 11/30/17 12:09 ibuprofen AdvReac Stomach Verified 11/30/17 12:09 Upset - Anesthesia Plan Pre-Op Medication Ordered: Beta Ailin Beta Ailin: Labetalol Med Last Dose Date: 12/01/17 Med Last Dose Time: 06:00 - Acknowledgements Anesthesia Type Planned: General Anesthesia Pt an Appropriate Candidate for the Planned Anesthesia: Yes Alternatives and Risks of Anesthesia Discussed w Pt/Guardian: Yes Pt/Guardian Understands and Agrees with Anesthesia Plan: Yes PreAnesthesia Questionnaire HEENT History: Reports: Other (See Below) Other HEENT History: tooth pain, dental abcess, left eye trauma, left subconjnctival hematoma, visual changes Cardiovascular History: Reports: Hypertension Respiratory History: Reports: None Gastrointestinal History: Reports: None Other Genitourinary History: 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: Reports: 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, Other (See Below) Other OB/BYN History: bacterial vaginosis, irregular menses, laproscopy Musculoskeletal History: Reports: Other (See Below) Other Musculoskeletal History: 5th metatarsal fracture, left foot pain, low back pain Neurological History: Reports: Headaches, Chronic, Migraines Psychiatric History: Reports: None, Anxiety Endocrine/Metabolic History: Reports: None Hematologic History: Reports: None Immunologic History: Reports: None Oncologic (Cancer) History: Reports: None Dermatologic History: Reports: None - Infectious Disease History Infectious Disease History: Reports: None - Past Surgical History Head Surgeries/Procedures: Reports: None HEENT Surgical History: Reports: Tonsillectomy Cardiovascular Surgical History: Reports: None Respiratory Surgical History: Reports: None GI Surgical History: Reports: None, Other (See Below) Other GI Surgeries/Procedures: laparoscopy Female Surgical History: Reports: None Male Surgical History: Reports: None Endocrine Surgical History: Reports: None Neurological Surgical History: Reports: None Musculoskeletal Surgical History: Reports: None Oncologic Surgical History: Reports: None Dermatological Surgical History: Reports: None - SUBSTANCE USE Smoking Status *Q: Current Every Day Smoker Tobacco Use Within Last Twelve Months: Cigarettes Second Hand Smoke Exposure: No Days Per Week of Alcohol Use: 0 Recreational Drug Use History: No - HOME MEDS Home Medications: Home Meds Labetalol HCl [Labetalol] 100 mg PO TID 08/29/14 [History] Amitriptyline [Elavil] 25 mg PO BEDTIME #10 tablet 03/14/17 [Rx] Norethindrone [Aygestin] 5 mg PO DAILY 11/30/17 [History] Acetaminophen/oxyCODONE [Percocet 325-5 MG] 1 tab PO ASDIRECTED PRN 12/01/17 [ History] - CURRENT (IN HOUSE) MEDS Current Meds: Current Medications Lactated Ringer's (Ringers, Lactated) 1,000 mls @ 125 mls/hr IV ASDIRECTED HEVER Stop: 12/01/17 23:00 Lidocaine/Sodium Bicarbonate (Buffered Lidocaine 1% In Ns 8.4%) 0.25 ml IDERM ONETIME PRN PRN Reason: Prior to IV Start Stop: 12/01/17 18:00 Sodium Chloride (Saline Flush) 10 ml FLUSH ASDIRECTED PRN PRN Reason: Keep Vein Open Stop: 12/01/17 18:00
[2017-12-01] MEDS ORDERED: Albuterol 0.083% 2.5 MG/3 ML Neb Soln NEB ONE (11:05)
[2017-12-01] MEDS ORDERED: Ondansetron 4 MG/2 ML SDV ONE (11:19)
[2017-12-01] MEDS ORDERED: Dexamethasone 4 MG/ML SDV ONE (11:19)
[2017-12-01] MEDS ORDERED: Lactated Ringers 1,000 ML ONE (11:19)
[2017-12-01] MEDS ORDERED: Propofol 200 MG/20 ML SDV ONE (11:19)
[2017-12-01] MEDS ORDERED: Lidocaine 1% 4 ML ONE (11:19)
[2017-12-01] MEDS ORDERED: Rocuronium 50 MG/5 ML Vial ONE (11:19)
[2017-12-01] MEDS ORDERED: fentaNYL 250 MCG/5 ML SDV ONE (11:20)
[2017-12-01] MEDS ORDERED: Midazolam 1 MG/ML 2 ML SDV ONE (11:20)
[2017-12-01] MEDS ORDERED: Bupivacaine 0.5% 30 ML SDV ONE (11:37)
[2017-12-01] MEDS ORDERED: HYDROmorphone 1 MG/ML Syringe ONE ×2 (11:43→12:11)
[2017-12-01] MEDS ORDERED: diphenhydrAMINE 50 MG/ML SDV IVPUSH PRN (12:27)
[2017-12-01] MEDS ORDERED: Ondansetron 4 MG/2 ML SDV IVPUSH PRN (12:27)
[2017-12-01] MEDS ORDERED: fentaNYL 100 MCG/2 ML SDV IVPUSH PRN (12:27)
[2017-12-01] MEDS ORDERED: Albuterol 0.083% 2.5 MG/3 ML Neb Soln NEB PRN (12:27)
[2017-12-01] MEDS ORDERED: Midazolam 1 MG/ML 2 ML SDV IVPUSH PRN (12:27)
[2017-12-01] MEDS ORDERED: Neostigmine Methylsulfate 1 MG/ML 5 ML Syringe ONE (12:47)
[2017-12-01] MEDS ORDERED: Phenylephrine/Normal Saline 100 MCG/ML 10 ML Syringe ONE (12:53)
[2017-12-01] MEDS ORDERED: ePHEDrine/Normal Saline 25 MG/5 ML Syringe ONE (13:03)
--- NOTE | 2017-12-01 13:27 | PCM.POSTAN ---
POST ANESTHESIA ASSESSMENT - MENTAL STATUS Mental Status: Alert - VITAL SIGNS Pulse Rate: 102 SaO2: 99 Resp Rate: 19 Blood Pressure: 124/84 Temperature: 36.6 C - RESPIRATORY Respiratory Status: Respiratory Rate WNL, Airway Patent, O2 Saturation Stable, Supplemental Oxygen - CARDIOVASCULAR CV Status: Pulse Rate WNL, Blood Pressure Stable - GASTROINTESTINAL GI Status: No Symptoms - POST OP HYDRATION Hydration Status: Adequate & Stable
--- NOTE | 2017-12-01 13:52 | PCM48HPAN ---
Post Anesthesia Note - EVALUATION WITHIN 48HRS OF ANESTHETIC Vital Signs in Normal Range: Yes Patient Participated in Evaluation: Yes Respiratory Function Stable: Yes Airway Patent: Yes Cardiovascular Function Stable: Yes Hydration Status Stable: Yes Pain Control Satisfactory: Yes Nausea and Vomiting Control Satisfactory: Yes Mental Status Recovered: Yes
--- NOTE | 2017-12-01 14:24 | PCM.OPNOTE ---
- General Post-Op/Procedure Note Date of Surgery/Procedure: 12/01/17 Operative Procedure(s): Laparoscopy with peritoneal biopsy and fulguration of suspected endometriosis lesion Findings: Overall normal-appearing uterus, bilateral fallopian tubes and bilateral ovaries. Normal-appearing appendix. Normal-appearing bowel. Normal-appearing liver, gallbladder and spleen. Small white colored lesion near the exit point of the left round ligament on left pelvic sidewall that was biopsied and remaining area fulgurated. Several small old endometriosis lesions on anterior abdominal wall. Increased venous vasculature on left posterior uterus. Pre Op Diagnosis: History of endometriosis and pelvic pain in a female Post-Op Diagnosis: Same Anesthesia Technique: General ET Tube Primary Surgeon: Obi Rollins Anesthesia Provider: Lida Gonzalez Wind Development Director: Leonard Glass Reason Wind Development Director Was Necessary: Laparoscopically trained physical laboratory assistant and patient safety Role of Wind Development Director: Manipulation of laparoscopic instruments during procedure Pathology: Left broad ligament peritoneal biopsy Fluid Replacement, Intraop: 1,100 (Lactated Ringer) Output, Urine Amount: 325 EBL in mLs: 5 Complications: None Condition: Good Free Text/Narrative:: Duration: 37 minutes Procedure in detail: Patient was seen in the preoperative holding area and reviewed H&P and operative consent forms. Patient desired to proceed with surgery including diagnostic laparoscopy, possible fulguration of endometriosis lesions, possible lysis of adhesions and possible biopsies as indicated. The risks and benefits were reviewed and patient desired to proceed. Patient was taken back to operating room #2 and given general anesthesia with an endotracheal tube that was placed without difficulty. She was placed in dorsal lithotomy position using Yellofin stirrups. A time out was held verifying patient information using 2 patient identifiers and to confirm the correct procedure. She was prepped and draped in the normal sterile fashion. A Quinones catheter was placed without difficulty. The umbilicus was injected with 0.5% Marcaine and a stab incision with a scalpel was made. An attempt was made with a Veress needle but the opening pressure was 15 mmHg and not felt to be intraperitoneal. A 5 mm trocar was inserted under direct visualization with the laparoscope. Attention was then turned to the patient's pelvis and an area in the previous suprapubic scar was injected with 0.5% Marcaine and a stab incision was made with the scalpel. A 5 mm trocar was inserted under direct visualization. The abdomen and pelvis was then explored and noted to be free of adhesions. Attention was then turned to the right lower quadrant and an area approximately long-term between the ASIS and the umbilicus was injected with 0.5% Marcaine and a stab incision was made with a scalpel. A 5 mm trocar was inserted under direct visualization. The pelvis was then explored and noted to have an overall normal-appearing uterus, bilateral fallopian tubes and bilateral ovaries. The posterior cul-de-sac was then explored and the posterior uterus was noted to have increased vascularity but was not felt to be secondary to endometriosis. Near the insertion point of the left round ligament at the pelvic sidewall there was a small 1-2 mm white spot on the peritoneum. This area was biopsied and then fulgurated using a harmonic scalpel. There were noted to be physiologic adhesions from the descending colon to the left pelvic sidewall. The remainder of the abdomen was explored and was noted to have overall normal- appearing omentum, bowel, gallbladder, spleen and liver. The case was completed at this time. The inferior trochars were removed under direct visualization and no bleeding was visualized. The gas was removed from the abdomen and the umbilical trocar was removed without difficulty. The skin incisions were closed using interrupted sutures of 4-0 Monocryl. Skin glue was applied over the top of the incisions. Lap, sponge, instrument and needle counts are correct 2 at the end of the case. The patient was awoken and taken back to the recovery area. She will be discharged from PACU once she is tolerating small amount of regular diet, pain is controlled with oral medications, voiding without difficulty, and ambulating without difficulty. She is given strict return precautions for severe pain, fevers, chills, severe nausea or vomiting, or bleeding or pus coming from the incision. Patient will follow up in 2-3 weeks or earlier as needed.
[2017-12-01 14:45] VITALS: BP 142/86
== END 2017-12-01 14:30 | disposition home or self-care (01) ==
LOC: JD.SDS 09:54
PROVIDERS: ATTEND Obstetrics & Gynecology
DX: N80.3 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 of pelvic peritoneum (principal); I10 Essential (primary) hypertension; Z88.0 Allergy status to penicillin; Z88.8 Allergy status to other drugs, medicaments and biological substances; Z79.899 Other long term (current) drug therapy; F17.210 Nicotine dependence, cigarettes, uncomplicated
CPT/HCPCS: 36415; 58662; 81025; 85025; 87086; 87088; 94640; J1100; J1170; J2250; J2405; J2710; J3010; J7050; J7120; J2704

== ENCOUNTER 2017-12-04 10:06 | Emergency (ER) | payer BC ==
[2017-12-04 10:18] VITALS: BP 167/119
[2017-12-04] MEDS ORDERED: Acetaminophen/HYDROcodone 325-5 MG Tab PO ONE (10:48)
--- NOTE | 2017-12-04 10:51 | EDM.PDOC ---
ED HPI GENERAL MEDICAL PROBLEM - General Chief Complaint: Abdominal Pain Stated Complaint: POST SURGICAL ISSUES Time Seen by Provider: 12/04/17 10:24 Source of Information: Reports: Patient, RN Notes Reviewed History Limitations: Reports: No Limitations - History of Present Illness INITIAL COMMENTS - FREE TEXT/NARRATIVE: 27-year-old female comes to the emergency room with complaints of abdominal pain. States she had laparoscopic surgery yesterday with Dr. Rollins for endometriosis and her pain is located at the incision sites. Patient states she was prescribed Percocet to manage pain after surgery but the pills were accidentally washed with her clothes and disintegrated. The last Percocet was taken yesterday around 9 AM. Since then she has been trying to control the pain with Tylenol with no relief. Patient states she tried to call Dr. Aguilar's office this morning to get a refill but he was not in and was therefore told to come to the emergency room for pain medication. Patient states her next appointment with Dr. Rollins is December 19. Patient states her pain is throbbing, cramping, and rates it 8 out of 10. Patient denies any fever, chills, nausea, vomiting, diarrhea, chest pain, or trouble breathing. Last bowel movement was yesterday and was normal per patient, she has a good appetite, and has no other GI symptoms at this time. Patient states she is allergic to ibuprofen and Toradol. Onset: Other (Yesterday after surgery) Duration: Constant Location: Reports: Abdomen (Incision sites in the right lower quadrant, umbilical, and suprapubic regions) Quality: Reports: Throbbing, Other (Cramping) Severity: Moderate (8 out of 10 per patient) Improves with: Reports: Medication (Percocet) Worsens with: Reports: None Context: Reports: Other (Surgery) Associated Symptoms: Reports: No Other Symptoms. Denies: Chest Pain, Fever/ Chills, Loss of Appetite, Nausea/Vomiting, Shortness of Breath Treatments BONDING AGENT: Reports: Acetaminophen, Other Medication(s) (Percocet) Abdomen Pain Score (Numeric/FACES): 8 - Related Data Allergies Allergy/AdvReac Type Severity Reaction Status Date / Time ketorolac [From Toradol] Allergy Rash Verified 12/04/17 10:12 Penicillins Allergy Hives Verified 12/04/17 10:12 ibuprofen AdvReac Stomach Verified 12/04/17 10:12 Upset Home Meds: Home Meds Labetalol HCl [Labetalol] 100 mg PO TID 08/29/14 [History] Amitriptyline [Elavil] 25 mg PO BEDTIME #10 tablet 03/14/17 [Rx] Norethindrone [Aygestin] 5 mg PO DAILY 11/30/17 [History] Acetaminophen/oxyCODONE [Percocet 325-5 MG] 1 tab PO ASDIRECTED PRN 12/01/17 [ History] Acetaminophen/HYDROcodone [[place] 325-5 MG] 1 tab PO Q6H PRN #10 tablet 12/04/17 [Rx] Past Medical History HEENT History: Reports: Other (See Below) Other HEENT History: tooth pain, dental abcess, left eye trauma, left subconjnctival hematoma, visual changes Cardiovascular History: Reports: Hypertension Respiratory History: Reports: None Gastrointestinal History: Reports: None Other Genitourinary History: CHRONIC BACTERIAL VAGINITIS 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, Other (See Below) Other OB/BYN History: bacterial vaginosis, irregular menses, laproscopy Musculoskeletal History: Reports: Other (See Below) Other Musculoskeletal History: 5th metatarsal fracture, left foot pain, low back pain Neurological History: Reports: Headaches, Chronic, Migraines Psychiatric History: Reports: None, Anxiety Endocrine/Metabolic History: Reports: None Hematologic History: Reports: None Immunologic History: Reports: None Oncologic (Cancer) History: Reports: None Dermatologic History: Reports: None - Infectious Disease History Infectious Disease History: Reports: None - Past Surgical History Head Surgeries/Procedures: Reports: None HEENT Surgical History: Reports: Tonsillectomy Cardiovascular Surgical History: Reports: None Respiratory Surgical History: Reports: None GI Surgical History: Reports: None, Other (See Below) Other GI Surgeries/Procedures: laparoscopy Female Surgical History: Reports: None Endocrine Surgical History: Reports: None Neurological Surgical History: Reports: None Musculoskeletal Surgical History: Reports: None Oncologic Surgical History: Reports: None Dermatological Surgical History: Reports: None Social & Family History - Family History Family Medical History: Noncontributory Cardiac: Reports: Hypertension Endocrine/Metabolic: Reports: Diabetes, type II Oncologic: Reports: Leukemia - Tobacco Use Smoking Status *Q: Current Every Day Smoker Years of Tobacco use: 9 Packs/Tins Daily: 0.5 Used Tobacco, but Quit: No Second Hand Smoke Exposure: No - Caffeine Use Caffeine Use: Reports: Soda - Alcohol Use Days Per Week of Alcohol Use: 0 - Recreational Drug Use Recreational Drug Use: No Drug Use in Last 12 Months: No ED ROS GENERAL - Review of Systems Review Of Systems: See Below Constitutional: Reports: No Symptoms. Denies: Fever, Chills, Decreased Appetite HEENT: Reports: No Symptoms Respiratory: Reports: No Symptoms. Denies: Shortness of Breath Cardiovascular: Reports: No Symptoms. Denies: Chest Pain Endocrine: Reports: No Symptoms GI/Abdominal: Reports: Abdominal Pain (Incision sites in the right lower quadrant, umbilical, and suprapubic regions) : Reports: No Symptoms Musculoskeletal: Reports: No Symptoms Skin: Reports: No Symptoms Neurological: Reports: No Symptoms Psychiatric: Reports: No Symptoms Hematologic/Lymphatic: Reports: No Symptoms Immunologic: Reports: No Symptoms ED EXAM, GI/ABD - Physical Exam Exam: See Below Exam Limited By: No Limitations General Appearance: Alert, WD/WN, Moderate Distress Eyes: Bilateral: Normal Appearance Ears: Normal External Exam Nose: Normal Inspection Throat/Mouth: Normal Inspection Head: Atraumatic, Normocephalic Neck: Normal Inspection, Supple, Non-Tender Respiratory/Chest: No Respiratory Distress, Lungs Clear, Normal Breath Sounds Cardiovascular: Normal Peripheral Pulses, Regular Rate, Rhythm GI/Abdominal Exam: Normal Bowel Sounds, Soft, No Distention, No Mass, Tender ( Incision sites in the right lower quadrant, umbilical, and suprapubic regions), Other (Incision sites healing well). No: Guarding, Rebound Extremities: Normal Inspection, Normal Range of Motion Neurological: Alert, Oriented Psychiatric: Normal Affect, Normal Mood, Tearful Skin Exam: Warm, Dry, Intact, Normal Color Course - Vital Signs Last Recorded V/S: Last Vital Signs Temp 98.4 F 12/04/17 10:14 Pulse 102 H 12/04/17 10:14 Resp 12 12/04/17 10:14 BP 167/119 H 12/04/17 10:14 Pulse Ox 100 12/04/17 10:14 - Orders/Labs/Meds Meds: Medications Discontinued Medications Generic Name Dose Route Start Last Admin Trade Name Freq PRN Reason Stop Dose Admin Hydrocodone Bitart/Acetaminophen 1 tab 12/04/17 10:48 12/04/17 10:53 [place] 325-5 Mg PO 12/04/17 10:49 1 tab ONETIME ONE Administration Departure - Departure Time of Disposition: 10:49 Disposition: Home, Self-Care 01 Condition: Fair Clinical Impression: Abdominal pain Qualifiers: Abdominal location: generalized Qualified Code(s): R10.84 - Generalized abdominal pain - Discharge Information Prescriptions: Acetaminophen/HYDROcodone [[place] 325-5 MG] 1 tab PO Q6H PRN #10 tablet PRN Reason: Pain Instructions: Abdominal Pain, Adult, [id number] Referrals: Obi Rollins MD [Primary Care Provider] - Forms: ED Department Discharge Additional Instructions: Tylenol 3-4 times daily for mild to moderate discomfort or hydrocodone if needed for more severe pain. Do not take Tylenol and hydrocodone at the same time. Call or follow-up at clinic as needed and as planned.
== END 2017-12-04 11:17 | disposition home or self-care (01) ==
LOC: JD.ED 10:06
DX: R10.84 Generalized abdominal pain (principal); I10 Essential (primary) hypertension; F41.9 Anxiety disorder, unspecified; F17.210 Nicotine dependence, cigarettes, uncomplicated; Z79.899 Other long term (current) drug therapy; Z98.890 Other specified postprocedural states; Z88.0 Allergy status to penicillin; Z88.5 Allergy status to narcotic agent; Z88.6 Allergy status to analgesic agent
CPT/HCPCS: 99284; A9270; 99283

== ENCOUNTER 2017-12-29 18:50 | Emergency (ER) | payer BC ==
[2017-12-29 19:17] VITALS: BP 145/95
--- NOTE | 2017-12-29 19:20 | EDM.PDOC ---
ED HPI GENERAL MEDICAL PROBLEM - General Chief Complaint: FOLLOW UP SPECIALIST Problem Stated Complaint: PELVIC PAIN Time Seen by Provider: 12/29/17 19:19 Source of Information: Reports: Patient - History of Present Illness INITIAL COMMENTS - FREE TEXT/NARRATIVE: Patient is here for evaluation of pelvic pain. Patient states that she has had this chronically and intermittently is typically related to her menses. She had a exploratory laparotomy last month for her endometriosis. Patient states that she was called on by Dr. Rollins/GYNs office and told her that she needs to be on an antibiotic for an infection. Patient states that she called back and was unable to get a hold of any provider today but the nurse in the [facility] told her to go to the emergency room. Patient states her period has been a bit heavy but not unbearable. She has had elbow pain/cramping. Denies any fever or chills. Denies any change in bowel habits. Patient's current menses started 2 days ago and her pain got worse last night. Treatments SPECIAL WARFARE BOAT OPERATOR: Reports: Other (see below) 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 SPECIAL WARFARE BOAT OPERATOR: tylenol Pelvic Pain Score (Numeric/FACES): 8 - Related Data Allergies Allergy/AdvReac Type Severity Reaction Status Date / Time ketorolac [From Toradol] Allergy Rash Verified 12/04/17 10:12 Penicillins Allergy Hives Verified 12/04/17 10:12 ibuprofen AdvReac Stomach Verified 12/04/17 10:12 Upset Home Meds: Home Meds Labetalol HCl [Labetalol] 100 mg PO TID 08/29/14 [History] Amitriptyline [Elavil] 25 mg PO BEDTIME #10 tablet 03/14/17 [Rx] Past Medical History HEENT History: Reports: Other (See Below) Other HEENT History: tooth pain, dental abcess, left eye trauma, left subconjnctival hematoma, visual changes Cardiovascular History: Reports: Hypertension Respiratory History: Reports: None Gastrointestinal History: Reports: None Other Genitourinary History: CHRONIC BACTERIAL VAGINITIS 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 UP 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 History: Reports: 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, Other (See Below) Other OB/BYN History: bacterial vaginosis, irregular menses, laproscopy Musculoskeletal History: Reports: Other (See Below) Other Musculoskeletal History: 5th metatarsal fracture, left foot pain, low back pain Neurological History: Reports: Headaches, Chronic, Migraines Psychiatric History: Reports: None, Anxiety Endocrine/Metabolic History: Reports: None Hematologic History: Reports: None Immunologic History: Reports: None Oncologic (Cancer) History: Reports: None Dermatologic History: Reports: None - Infectious Disease History Infectious Disease History: Reports: None - Past Surgical History Head Surgeries/Procedures: Reports: None HEENT Surgical History: Reports: Tonsillectomy Cardiovascular Surgical History: Reports: None Respiratory Surgical History: Reports: None GI Surgical History: Reports: None, Other (See Below) Other GI Surgeries/Procedures: laparoscopy Female Surgical History: Reports: None Endocrine Surgical History: Reports: None Neurological Surgical History: Reports: None Musculoskeletal Surgical History: Reports: None Oncologic Surgical History: Reports: None Dermatological Surgical History: Reports: None Social & Family History - Family History Family Medical History: Noncontributory Cardiac: Reports: Hypertension Endocrine/Metabolic: Reports: Diabetes, type II Oncologic: Reports: Leukemia - Tobacco Use Smoking Status *Q: Current Every Day Smoker Years of Tobacco use: 9 Packs/Tins Daily: 0.4 Used Tobacco, but Quit: No Second Hand Smoke Exposure: No - Caffeine Use Caffeine Use: Reports: Soda - Alcohol Use Days Per Week of Alcohol Use: 0 - Recreational Drug Use Recreational Drug Use: No Drug Use in Last 12 Months: No ED ROS GENERAL - Review of Systems Review Of Systems: See Below Constitutional: Denies: Fever, Chills, Malaise, Weakness, Fatigue Respiratory: Reports: No Symptoms, Cough GI/Abdominal: Denies: Abdominal Pain, Constipation, Diarrhea, Decreased Appetite , Nausea, Vomiting : Reports: Dysuria, Irregular Menses, Pain, Other (Pelvic cramping). Denies: Discharge, Flank Pain, Frequency, Hematuria, Urinary Retention Musculoskeletal: Reports: No Symptoms Skin: Reports: No Symptoms ED EXAM, RENAL/ - Physical Exam Exam: See Below Exam Limited By: No Limitations General Appearance: Alert, WD/WN, No Apparent Distress Respiratory/Chest: No Respiratory Distress, Lungs Clear, Normal Breath Sounds, Chest Non-Tender Cardiovascular: Normal Peripheral Pulses, Regular Rate, Rhythm, No Murmur GI/Abdominal: Normal Bowel Sounds, Soft, Non-Tender (Female) Exam: Other (Suprapubic tenderness, pt declines pelvic exam) Neurological: Alert, Oriented Course - Vital Signs Last Recorded V/S: Last Vital Signs Temp 98.4 F 12/29/17 19:15 Pulse 102 H 12/29/17 19:15 Resp 20 12/29/17 19:15 BP 145/95 H 12/29/17 19:15 Pulse Ox 99 12/29/17 19:15 - Orders/Labs/Meds Labs: Laboratory Tests 12/29/17 12/29/17 Range/Units 20:00 20:02 Urine Color Red H (Yellow) Urine Appearance Cloudy H (Clear) Urine pH 8.5 H (5.0-8.0) Ur Specific [place] 1.020 (1.005-1.030) Urine Protein 2+ H (Negative) Urine Glucose (UA) Negative (Negative) Urine Ketones Negative (Negative) Urine Occult Blood 3+ H (Negative) Urine Nitrite Negative (Negative) Urine Bilirubin Negative (Negative) Urine Urobilinogen 0.2 (0.2-1.0) Ur Leukocyte Esterase Negative (Negative) Urine RBC >100 H (0-5) /hpf Urine WBC 5-10 H (0-5) /hpf Ur Epithelial Cells 0-5 (0-5) /hpf Urine Bacteria Moderate H (FEW) /hpf Urine Mucus Not seen (FEW) /hpf Urine HCG, Qual Negative (NEGATIVE) - Re-Assessments/Exams Free Text/Narrative Re-Assessment/Exam: [facility] Notes reviewed in [facility] chart and her laparoscopy 12/01/2017 demonstrated endometriosis but no other abnormality. Biopsy during this also demonstrated endometriosis. I see no phone call between her in [facility] this week, nor do I see any indication of an infection on the biopsy results of her recent lab work. Patient reports an allergy to NSAIDs so cannot treat with these at this time. Patient does have a history of frequent narcotic pain medication use, she has had 14 controlled substance spilled by 11 different providers in the last year per [facility] review. Options were discussed for pain treatment, patient NSAID allergy was also discussed. She now admits that this is not an anaphylactic reaction that she was told that she is NSAIDs she will "bleed to from my stomach". Offered patient ketorolac injection and she declines this. Patient has cyclobenzaprine at home, this may be a of help with her pain. Certainly she should certainly use Tylenol and warm heating pad. Also discussed the option of something like danazol that the side effects were a deterrent for her. Patient states her symptoms were very well controlled when she did have her Nexplanon implant. She will check with [employer] on this and if they do not provide it she will go back to [place] to have another implant inserted. Urinalysis does not demonstrate sign of infection, she does have hematuria & protein which would be consistent with her currently having her menses. Treatment as above, patient will follow-up with [facility] next week or return to the emergency room if needed. 12/29/17 19:57 12/29/17 20:11 12/29/17 20:24 Departure - Departure Time of Disposition: 20:25 Disposition: Home, Self-Care 01 Condition: Good Clinical Impression: Dysmenorrhea, 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 - Discharge Information Referrals: Jesenia Porter PA [Primary Care Provider] - Forms: ED Department Discharge Additional Instructions: Use Tylenol and heating pad as needed for pain. Consider trying the cyclobenzaprine you have at home to see if this helps. Check with [employer] [phone] about the Nexplanon implants. FU with [facility] next week or return to ER if needed.
== END 2017-12-29 20:30 | disposition home or self-care (01) ==
LOC: JD.ED 18:50
DX: N94.6 Dysmenorrhea, unspecified (principal); N80.9 Endometriosis, unspecified; F17.210 Nicotine dependence, cigarettes, uncomplicated; I10 Essential (primary) hypertension; Z88.0 Allergy status to penicillin; Z88.6 Allergy status to analgesic agent
CPT/HCPCS: 81001; 81025; 99283; 99284

== ENCOUNTER 2018-12-22 12:00 | Emergency (ER) | payer SELFPAY ==
[2018-12-22 12:12] VITALS: BP 139/87
--- NOTE | 2018-12-22 12:31 | EDM.PDOC ---
<Karen Bullock - Last Filed: 12/22/18 12:48> ED HPI GENERAL MEDICAL PROBLEM - General Chief Complaint: ENT Problem Stated Complaint: DENTAL COMPLAINT Time Seen by Provider: 12/22/18 12:09 Source of Information: Reports: Patient History Limitations: Reports: No Limitations - History of Present Illness INITIAL COMMENTS - FREE TEXT/NARRATIVE: 28 year old female presents to emergency with chief complaints of left lower gumline and dental pain. She reports the pain started yesterday. She states that she noticed a "blister on the gumline near tooth #19 and 18, which she popped and got relief." She states that she's been taking Tylenol for pain and has had little to no relief. She denies any fever or chills. Patient does report a history of "bad teeth." Patient reports that she does have an appointment second january in [facility] to have her teeth worked on due to the weather she was unable to keep her appointment this month. She reports that she has a history of hypertension. She denies being around any sick contacts. Her PCP is BARBIE Saha. 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 Left Lower Tooth/Teeth Pain Score (Numeric/FACES): 7 - Related Data Allergies Allergy/AdvReac Type Severity Reaction Status Date / Time ketorolac [From Toradol] Allergy Rash Verified 09/18/18 18:21 Penicillins Allergy Hives Verified 09/18/18 18:21 ibuprofen AdvReac Stomach Verified 09/18/18 18:21 Upset Home Meds: Home Meds Labetalol HCl [Labetalol] 100 mg PO DAILY 08/29/14 [History] Amitriptyline [Elavil] 50 mg PO BEDTIME 07/24/18 [History] Clindamycin HCl 300 mg PO TID 10 Days #30 capsule 12/22/18 [Rx] Past Medical History HEENT History: Reports: Other (See Below) Other HEENT History: tooth pain, dental abcess, left eye trauma, left subconjnctival hematoma, visual changes Cardiovascular History: Reports: Hypertension Respiratory History: Reports: None Gastrointestinal History: Reports: None Other Genitourinary History: CHRONIC BACTERIAL VAGINITIS ELDERLY COMPANION History: Reports: 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, Other (See Below) Other ELDERLY COMPANION History: bacterial vaginosis, irregular menses, laproscopy Musculoskeletal History: Reports: Other (See Below) Other Musculoskeletal History: 5th metatarsal fracture, left foot pain, low back pain Neurological History: Reports: Headaches, Chronic, Migraines Psychiatric History: Reports: None, Anxiety Endocrine/Metabolic History: Reports: None Hematologic History: Reports: None Immunologic History: Reports: None Oncologic (Cancer) History: Reports: None Dermatologic History: Reports: None - Infectious Disease History Infectious Disease History: Reports: None - Past Surgical History Head Surgeries/Procedures: Reports: None HEENT Surgical History: Reports: Tonsillectomy Cardiovascular Surgical History: Reports: None Respiratory Surgical History: Reports: None GI Surgical History: Reports: None, Other (See Below) Other GI Surgeries/Procedures: laparoscopy Female Surgical History: Reports: None Endocrine Surgical History: Reports: None Neurological Surgical History: Reports: None Musculoskeletal Surgical History: Reports: None Oncologic Surgical History: Reports: None Dermatological Surgical History: Reports: None Social & Family History - Family History Family Medical History: Noncontributory Cardiac: Reports: Hypertension Endocrine/Metabolic: Reports: Diabetes, type II Oncologic: Reports: Leukemia - Tobacco Use Smoking Status *Q: Current Every Day Smoker Years of Tobacco use: 9 Packs/Tins Daily: 0.3 - Caffeine Use Caffeine Use: Reports: Soda - Recreational Drug Use Recreational Drug Use: No ED ROS ENT - Review of Systems Review Of Systems: ROS reveals no pertinent complaints other than HPI. Constitutional: Denies: Fever, Chills, Fatigue, Decreased Appetite HEENT: Reports: Dental Pain (left lower tooth # 19 & 18). Denies: Ear Pain Respiratory: Reports: No Symptoms Neurological: Reports: No Symptoms. Denies: Headache ED EXAM, ENT - Physical Exam Exam: See Below Exam Limited By: No Limitations General Appearance: Alert, WD/WN, No Apparent Distress Mouth/Throat: Normal Lips, Normal Oropharynx, Dental Pain, Dental Tenderness, Gum Swelling, Other (Moderate tooth decaying noted throughout off. Gumline tooth #18 & 19 is tender to touch there is slight erythema and gingivitis noted) Neck: Normal Inspection, Supple, Non-Tender, Full Range of Motion Respiratory/Chest: No Respiratory Distress Cardiovascular: Normal Peripheral Pulses, Regular Rate, Rhythm, No Edema, No Gallop, No JVD, No Murmur, No Rub Neurological: Alert, Oriented, CN II-XII Intact, Normal Cognition, Normal Gait, Normal Reflexes, No Motor/Sensory Deficits Lymphatic: No Adenopathy Course - Vital Signs Last Recorded V/S: Last Vital Signs Temp 36.5 C 12/22/18 12:10 Pulse 108 H 12/22/18 12:10 Resp 20 12/22/18 12:10 BP 139/87 12/22/18 12:10 Pulse Ox 100 12/22/18 12:10 - Orders/Labs/Meds Meds: Medications Discontinued Medications Generic Name Dose Route Start Last Admin Trade Name Latha PRN Reason Stop Dose Admin Acetaminophen 650 mg 12/22/18 12:32 12/22/18 13:00 Tylenol PO 12/22/18 12:33 Not Given NOW ONE - Re-Assessments/Exams Free Text/Narrative Re-Assessment/Exam: 12/22/18 12:48 28-year-old female presents to emergency with chief complaints of left lower dental pain that started yesterday. I discussed option of a dental block patient refused at this time. It appears patient has been seen multiple times for the same dental issue. I instructed her to follow-up with her dentist as scheduled in January for further evaluation and treatment. I will discharge home with clindamycin for outpatient antibiotic therapy. Instructed patient to follow -up with her PCP as needed. Instructed to return to the emergency room for any new or acutely worsening symptoms. Patient verbalizes understanding and is stable at time of discharge. Departure - Departure Time of Disposition: 12:50 Disposition: Home, Self-Care 01 Condition: Fair Clinical Impression: Gingivitis, Chronic dental pain, Dental caries, Dental abscess - Discharge Information *PRESCRIPTION DRUG MONITORING PROGRAM REVIEWED*: Not Applicable *COPY OF PRESCRIPTION DRUG MONITORING REPORT IN PATIENT YVONNE: Not Applicable Prescriptions: Clindamycin HCl 300 mg PO TID 10 Days #30 capsule Instructions: Gingivitis, [id number] Referrals: PCP,Not In Area [Primary Care Provider] - Forms: ED Department Discharge Additional Instructions: You have been seen today for dental pain/gingivitis. Take clindamycin as instructed until prescription is completed. Follow up with dentist as scheduled in January. Follow up with her PCP as needed. Return to the emergency room for any new or acutely worsening symptoms. <Shaun Garcia - Last Filed: 12/22/18 13:22> Course - Re-Assessments/Exams Free Text/Narrative Re-Assessment/Exam: 12/22/18 13:21 I personally performed physical exam and participated in the decision-making of this patient I have verified all documentation from this other provider and agree with physical findings and medical decision making.
[2018-12-22] MEDS ORDERED: Acetaminophen 325 MG Tab PO ONE (12:32)
== END 2018-12-22 13:00 | disposition home or self-care (01) ==
LOC: JD.ED 12:00
DX: K05.10 Chronic gingivitis, plaque induced (principal); K04.7 Periapical abscess without sinus; F17.210 Nicotine dependence, cigarettes, uncomplicated; Z88.0 Allergy status to penicillin; Z88.6 Allergy status to analgesic agent; Z79.899 Other long term (current) drug therapy
CPT/HCPCS: 99282; 99283

== ENCOUNTER 2019-07-24 17:44 | Inpatient (IN) | payer MEDICAID ==
--- NOTE | 2019-07-24 18:43 | PCM.SN ---
- Free Text/Narrative Note: 07/24/19 [id number] IV started times 1 attempt 20 guage right inner forearm. Flushes well and secured. Maryjane
[2019-07-24] MEDS ORDERED: Magnesium Sulfate/Water 4 GM in Premix Bag 1 BAG IV ONE (19:10)
[2019-07-24] MEDS ORDERED: Magnesium Sulfate/Water 2 GM in Premix Bag 1 BAG IV ONE (19:10)
[2019-07-24] MEDS ORDERED: Nalbuphine 10 MG/1 ML Vial IVPUSH PRN (19:10)
[2019-07-24] MEDS ORDERED: ceFAZolin 2 GM in Premix Bag 1 BAG IV ONE (19:10)
[2019-07-24] MEDS ORDERED: Calcium Gluconate 10% 1 GM/10 ML SDV IV PRN (19:10)
[2019-07-24] MEDS ORDERED: Labetalol 100 MG/20 ML MDV IVPUSH ONE ×2 (19:10→20:19)
[2019-07-24] MEDS ORDERED: Sodium Chloride 0.9% 10 ML Syringe FLUSH PRN (19:10)
--- NOTE | 2019-07-24 20:30 | PCM.LDHP ---
L&D History of Present Illness - General Date of Service: 07/24/19 Admit Problem/Dx: Patient Status Order with Admit Dx/Problem 07/24/19 19:14 Patient Status [ADT] Routine Admission Diagnosis/Problem Admission Diagnosis/Problem Pre-eclampsia - History of Present Illness Introduction:: 29 year old at 39w0d by 23 week ultrasound here after noting elevated blood pressures at home. PNC has been sparse. Started at [address] Archer in [place]. Second visit 34w5d with blood pressure 170/100. Next seen . Then on July 19 was transferred to [place] for elevated blood pressures after requesting transfer there because did not want to deliver in [place]. Was uncomfortable with care there and left against medical advice. Here today blood pressures significantly elevated. Reports good movement, no loss of fluid, no headaches, no contractions. - Related Data Allergies/Adverse Reactions: Allergies Allergy/AdvReac Type Severity Reaction Status Date / Time ketorolac [From Toradol] Allergy Rash Verified 05/28/19 11:33 Penicillins Allergy Hives Verified 05/28/19 11:33 ibuprofen AdvReac Stomach Verified 05/28/19 11:33 Upset Home Medications: Home Meds Labetalol HCl [Labetalol] 300 mg PO BID 08/29/14 [History] Acetaminophen with Codeine [Tylenol with Codeine #3 Tablet] 1 - 2 each PO Q6H PRN 07/24/19 [History] PNV95/Ferrous Fumarate/FA [ Tablet] 1 each PO DAILY 07/24/19 [History] Past Medical History HEENT History: Reports: Other (See Below) Other HEENT History: tooth pain, dental abcess, left eye trauma, left subconjnctival hematoma, visual changes Cardiovascular History: Reports: Hypertension Other Cardiovascular History: pt states has chronic hypertension for 5 years. 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: Reports: 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, Other (See Below) Other OB/BYN History: bacterial vaginosis, irregular menses, laproscopy Musculoskeletal History: Reports: Other (See Below) Other Musculoskeletal History: 5th metatarsal fracture, left foot pain, low back pain Neurological History: Reports: Headaches, Chronic, Migraines Psychiatric History: Reports: None, Anxiety Endocrine/Metabolic History: Reports: None Hematologic History: Reports: None Immunologic History: Reports: None Oncologic (Cancer) History: Reports: None Dermatologic History: Reports: None - Infectious Disease History Infectious Disease History: Reports: None - Past Surgical History Head Surgeries/Procedures: Reports: None HEENT Surgical History: Reports: Tonsillectomy Cardiovascular Surgical History: Reports: None Respiratory Surgical History: Reports: None GI Surgical History: Reports: None, Other (See Below) Other GI Surgeries/Procedures: laparoscopy Female Surgical History: Reports: None Endocrine Surgical History: Reports: None Neurological Surgical History: Reports: None Musculoskeletal Surgical History: Reports: None Oncologic Surgical History: Reports: None Dermatological Surgical History: Reports: None Social & Family History - Family History Family Medical History: Noncontributory Cardiac: Reports: Hypertension Endocrine/Metabolic: Reports: Diabetes, type II Oncologic: Reports: Leukemia - Tobacco Use Smoking Status *Q: Current Some Day Smoker Years of Tobacco use: 9 Packs/Tins Daily: 0.2 - Caffeine Use Caffeine Use: Reports: Coffee, Energy Drinks, Soda - Recreational Drug Use Recreational Drug Use: No H&P Review of Systems - Review of Systems: Review Of Systems: See Below General: Reports: No Symptoms HEENT: Reports: No Symptoms Pulmonary: Reports: No Symptoms Cardiovascular: Reports: No Symptoms Gastrointestinal: Reports: No Symptoms Genitourinary: Reports: No Symptoms Musculoskeletal: Reports: No Symptoms Skin: Reports: No Symptoms Psychiatric: Reports: No Symptoms Neurological: Reports: No Symptoms Hematologic/Lymphatic: Reports: No Symptoms Immunologic: Reports: No Symptoms L&D Exam - Exam Exam: See Below - Vital Signs Vital Signs: Last Vital Signs Temp 36.9 C 07/24/19 19:10 Pulse 99 07/24/19 19:10 Resp 18 07/24/19 19:10 BP 184/119 H 07/24/19 19:10 Pulse Ox Weight: 83.915 kg - OB Specific Fundal Height In cm: 40 Movement: Active Heart Tones: Present Heart Tones per Min: 140 Heart Rate (FHR) Variability: Moderate (6-25 bmp) Presentation: Vertex - Redding Score Redding Score Cervix Position: Anterior [place] Score Consistency: Soft [place] Score Effacement: >80% [place] Score Dilation: 3-4 cm Redding Score 's Station: -2 [place]ding Score Total: 10 - Exam General: Alert, Oriented HEENT: PERRLA, Conjunctiva Clear, EACs Clear, EOMI, Hearing Intact, Mucosa Moist & [place], Nares Patent, Normal Nasal Septum, Posterior Pharynx Clear, TMs Clear Neck: Supple, Trachea Midline Lungs: Clear to Auscultation, Normal Respiratory Effort Cardiovascular: Regular Rate, Regular Rhythm GI/Abdominal Exam: Normal Bowel Sounds, Soft, Non-Tender, No Organomegaly Genitourinary: Normal external exam, Normal bimanual exam, Normal speculum exam Back Exam: Normal Inspection, Full Range of Motion Extremities: Normal Inspection, Normal Range of Motion, Non-Tender, No Pedal Edema, Normal Capillary Refill Skin: Warm, Dry, Intact Neurological: Cranial Nerves Intact, Reflexes Equal Bilateral DTR: 2+: Patella (L), Patella (R) Psychiatric: Alert, Normal Affect, Normal Mood - Patient Data Lab Results Last 24 hrs: Laboratory Results - last 24 hr 07/24/19 07/24/19 Range/Units 18:30 18:30 Urine Color Yellow (Yellow) Urine Appearance Slt cloudy H (Clear) Urine pH 7.0 (5.0-8.0) Ur Specific [place] 1.025 (1.005-1.030) Urine Protein 2+ H (Negative) Urine Glucose (UA) Negative (Negative) Urine Ketones Negative (Negative) Urine Occult Blood Negative (Negative) Urine Nitrite Negative (Negative) Urine Bilirubin Negative (Negative) Urine Urobilinogen 0.2 (0.2-1.0) Ur Leukocyte Esterase Negative (Negative) Urine Opiates Screen Negative (YNUFBO=415) Ur Buprenorphine Scrn Negative (CUTOFF=10) Ur Oxycodone Screen Negative (SJC0MC=731) Urine Methadone Screen Negative (QEZHZH=115) Ur Propoxyphene Screen Negative (ANTXHF=709) Ur Barbiturates Screen Negative (TWOGEP=408) Ur Tricyclics Screen Negative (DNKBJG=807) Ur Phencyclidine Scrn Negative (CUTOFF=25) Ur Amphetamine Screen Negative (AUOUJK=284) U Methamphetamines Scrn Negative (NBGYFX=232) U Benzodiazepines Scrn Negative (TKRUXG=419) U Cocaine Metab Screen Negative (FGZDBE=192) U Marijuana (THC) Screen Negative (CUTOFF=50) Problem List Initiated/Reviewed/Updated: Yes Orders Last 24hrs: Active Orders 24 hr Category Date Time Status Patient Status [ADT] Routine ADT 07/24/19 19:14 Active Activity as Tolerated [RC] PFP Care 07/24/19 19:10 Active Bedrest [RC] ASDIRECTED Care 07/24/19 19:10 Active Communication Order [RC] ASDIRECTED Care 07/24/19 19:10 Active Communication Order [RC] ASDIRECTED Care 07/24/19 19:10 Active Equipment to Bedside [RC] PRN Care 07/24/19 19:10 Active Heart Tones [RC] ASDIRECTED Care 07/24/19 19:12 Active Monitoring [RC] CONTINUOUS Care 07/24/19 19:10 Active Non Stress Test [RC] PER UNIT ROUTINE Care 07/24/19 19:10 Active Notify Provider Status Change [RC] ASDIRECTED Care 07/24/19 19:10 Active Notify Provider Vital Signs [RC] ASDIRECTED Care 07/24/19 19:10 Active Notify Provider [RC] ASDIRECTED Care 07/24/19 19:10 Active Notify Provider [RC] PFP Care 07/24/19 19:10 Active Notify Provider [RC] PRN Care 07/24/19 19:10 Active Oxygen Therapy [RC] PRN Care 07/24/19 19:10 Active Peripheral IV Care [RC] . DIRECTED Care 07/24/19 19:12 Active Vital Signs [RC] ASDIRECTED Care 07/24/19 19:10 Active ALANINE AMINOTRANSFERASE,ALT [CHEM] Stat Lab 07/24/19 19:15 Ordered ASPARTATE AMNIOTRANSFERASE,AST [CHEM] Stat Lab 07/24/19 19:15 Ordered BLOOD UREA NITROGEN,BUN [CHEM] Stat Lab 07/24/19 19:15 Ordered CBC WITH AUTO DIFF [HEME] Stat Lab 07/24/19 19:15 Ordered CREATININE W/GFR [CHEM] Stat Lab 07/24/19 19:15 Ordered LACTATE DEHYDROGENASE,LDH [CHEM] Stat Lab 07/24/19 19:15 Ordered RAPID PLASMA REAGIN,RPR [CHEM] Routine Lab 07/24/19 19:10 Ordered TYPE AND SCREEN [BBK] Stat Lab 07/24/19 19:10 Ordered URIC ACID [CHEM] Stat Lab 07/24/19 19:15 Ordered Calcium Gluconate Med 07/24/19 19:10 Active 1 gm IV ASDIRECTED PRN Labetalol [Normodyne] Med 07/24/19 20:19 Once 40 mg IVPUSH ONETIME ONE Lactated Ringers [Ringers, Lactated] 1,000 ml Med 07/24/19 19:15 Active IV ASDIRECTED Nalbuphine [Nubain] Med 07/24/19 19:10 Active 10 mg IVPUSH Q2H PRN Sodium Chloride 0.9% [Saline Flush] Med 07/24/19 19:10 Active 10 ml FLUSH ASDIRECTED PRN ceFAZolin [Ancef] 1 gm Med 07/25/19 03:00 Active Premix Bag 1 bag IV Q8H Blood Pressure [OM.PC] ASDIRECTED Oth 07/24/19 19:15 Ordered Deep Tendon Reflexes [WOMSER] ASDIRECTED Oth 07/24/19 19:15 Ordered Electronic Heart Tones Ext w TOCO [WOMSER] Oth 07/24/19 19:10 Ordered Routine Electronic Heart Tones Internal [WOMSER] Per Unit Oth 07/24/19 19:10 Ordered Routine PIH Panel [OM.PC] Stat Oth 07/24/19 19:10 Ordered Peripheral IV Insertion Adult [OM.PC] Routine Oth 07/24/19 19:10 Ordered Seizure Precautions [OM.PC] Per Unit Routine Oth 07/24/19 19:11 Ordered Resuscitation Status Routine Resus Stat 07/24/19 19:10 Ordered Medication Orders Calcium Gluconate (Calcium Gluconate) 1 gm IV ASDIRECTED PRN PRN Reason: respiratory distress Cefazolin Sodium/Dextrose 1 gm (/ Premix) 50 mls @ 100 mls/hr IV Q8H HEVER Lactated Ringer's (Ringers, Lactated) 1,000 mls @ 100 mls/hr IV ASDIRECTED HEVER Labetalol HCl (Normodyne) 40 mg IVPUSH ONETIME ONE; Protocol Stop: 07/24/19 20:20 Nalbuphine HCl (Nubain) 10 mg IVPUSH Q2H PRN PRN Reason: Pain Sodium Chloride (Saline Flush) 10 ml FLUSH ASDIRECTED PRN PRN Reason: Keep Vein Open Assessment/Plan Comment:: 29 year old at 39 weeks with severe gestational hypertension. Labs pending - were normal 10/4/19. Blood pressure treatment per protocol. Severe range pressures to be treated. 20 mg labetolol IV given. Magnesium sulfate. GBS positive - antibiotics given Long discussion with patient regarding course, risks, and planned induction and medication necessity for seizure prophylaxis. Patient voices understanding. AROM clear fluid. Pitocin thereafter.
[2019-07-24] MEDS: Lactated Ringers 1,000 ML IV SCH (20:42)
[2019-07-24] MEDS ORDERED: Oxytocin/Lactated Ringers 10 UNIT/1,000 ML BAG IV SCH (20:45)
[2019-07-24] MEDS ORDERED: fentaNYL/Bupivacaine in NS PF 2 MCG-0.125% 250 ML Premix EPIDUR PRN (20:51)
[2019-07-24] MEDS ORDERED: diphenhydrAMINE 50 MG/ML SDV IVPUSH PRN (20:51)
[2019-07-24] MEDS ORDERED: ePHEDrine 50 MG/ML SDV IVPUSH PRN (20:51)
--- NOTE | 2019-07-24 20:51 | PCM.SN ---
- Free Text/Narrative Note: 07-24-19 Second IV started 20 guage left hand area. Flushes well. Maryjane 07-24-19 Draw blood left hand for lab. 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
--- NOTE | 2019-07-24 20:56 | PCM.PREANE ---
Preanesthetic Assessment - Procedure Proposed Procedure: olivia - Anesthesia/Transfusion/Family Hx Anesthesia History: Prior Anesthesia Without Reaction Family History of Anesthesia Reaction: No Transfusion History: No Prior Transfusion(s) Intubation History: Unknown - Review of Systems General: No Symptoms Pulmonary: No Symptoms Cardiovascular: No Symptoms Gastrointestinal: No Symptoms Neurological: No Symptoms Other: Reports: None - Physical Assessment Vital Signs: Last Vital Signs Temp 98.4 F 07/24/19 19:10 Pulse 99 07/24/19 19:10 Resp 18 07/24/19 19:10 BP 184/119 H 07/24/19 19:10 Pulse Ox Height: 5 ft 1 in Weight: 83.915 kg ASA Class: 2 Mental Status: Alert & Oriented x3 Airway Class: Mallampati = 1 Dentition: Reports: Broken Tooth/Teeth, Missing Tooth/Teeth, Caries Thyro-Mental Finger Breadths: 3 Mouth Opening Finger Breadths: 3 ROM/Head Extension: Full Lungs: Clear to Auscultation, Normal Respiratory Effort Cardiovascular: Regular Rate, Regular Rhythm - Lab Values: Laboratory Last Values Urine Color Yellow (Yellow) 07/24/19 18:30 Urine Appearance Slt cloudy (Clear) H 07/24/19 18:30 Urine pH 7.0 (5.0-8.0) 07/24/19 18:30 Ur Specific [place] 1.025 (1.005-1.030) 07/24/19 18:30 Urine Protein 2+ (Negative) H 07/24/19 18:30 Urine Glucose (UA) Negative (Negative) 07/24/19 18:30 Urine Ketones Negative (Negative) 07/24/19 18:30 Urine Occult Blood Negative (Negative) 07/24/19 18:30 Urine Nitrite Negative (Negative) 07/24/19 18:30 Urine Bilirubin Negative (Negative) 07/24/19 18:30 Urine Urobilinogen 0.2 (0.2-1.0) 07/24/19 18:30 Ur Leukocyte Esterase Negative (Negative) 07/24/19 18:30 Urine Opiates Screen Negative (AXMTAL=640) 07/24/19 18:30 Ur Buprenorphine Scrn Negative (CUTOFF=10) 07/24/19 18:30 Ur Oxycodone Screen Negative (TRQ9PU=077) 07/24/19 18:30 Urine Methadone Screen Negative (PXAETM=848) 07/24/19 18:30 Ur Propoxyphene Screen Negative (AQVOFQ=619) 07/24/19 18:30 Ur Barbiturates Screen Negative (KVMCQQ=401) 07/24/19 18:30 Ur Tricyclics Screen Negative (LSRIZE=125) 07/24/19 18:30 Ur Phencyclidine Scrn Negative (CUTOFF=25) 07/24/19 18:30 Ur Amphetamine Screen Negative (IQTTKO=711) 07/24/19 18:30 U Methamphetamines Scrn Negative (LSDCVV=872) 07/24/19 18:30 U Benzodiazepines Scrn Negative (VLILJF=447) 07/24/19 18:30 U Cocaine Metab Screen Negative (QTXXLT=650) 07/24/19 18:30 U Marijuana (THC) Screen Negative (CUTOFF=50) 07/24/19 18:30 - Allergies Allergies/Adverse Reactions: Allergies Allergy/AdvReac Type Severity Reaction Status Date / Time ketorolac [From Toradol] Allergy Rash Verified 05/28/19 11:33 Penicillins Allergy Hives Verified 05/28/19 11:33 ibuprofen AdvReac Stomach Verified 05/28/19 11:33 Upset - Blood Blood Available: No - Acknowledgements Anesthesia Type Planned: Epidural Pt an Appropriate Candidate for the Planned Anesthesia: Yes Alternatives and Risks of Anesthesia Discussed w Pt/Guardian: Yes Pt/Guardian Understands and Agrees with Anesthesia Plan: Yes PreAnesthesia Questionnaire HEENT History: Reports: Other (See Below) Other HEENT History: tooth pain, dental abcess, left eye trauma, left subconjnctival hematoma, visual changes Cardiovascular History: Reports: Hypertension Other Cardiovascular History: pt states has chronic hypertension for 5 years.- gestational hypertension Respiratory History: Reports: None Gastrointestinal History: Reports: None, GERD (occcasionally) Other Genitourinary History: CHRONIC 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: 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, Other (See Below) Other OB/BYN History: bacterial vaginosis, irregular menses, laproscopy Musculoskeletal History: Reports: Other (See Below) Other Musculoskeletal History: 5th metatarsal fracture, left foot pain, low back pain Neurological History: Reports: Headaches, Chronic, Migraines Psychiatric History: Reports: None, Anxiety, Other (See Below) (migraines) Endocrine/Metabolic History: Reports: None Hematologic History: Reports: None Immunologic History: Reports: None Oncologic (Cancer) History: Reports: None Dermatologic History: Reports: None - Infectious Disease History Infectious Disease History: Reports: None - Past Surgical History Head Surgeries/Procedures: Reports: None HEENT Surgical History: Reports: Tonsillectomy Cardiovascular Surgical History: Reports: None Respiratory Surgical History: Reports: None GI Surgical History: Reports: None, Other (See Below) Other GI Surgeries/Procedures: laparoscopy Female Surgical History: Reports: None Endocrine Surgical History: Reports: None Neurological Surgical History: Reports: None Musculoskeletal Surgical History: Reports: None Oncologic Surgical History: Reports: None Dermatological Surgical History: Reports: None - History Comment History Comment: patient not wanting to cooperate all the time. Refuses to open mouth and etc. Has to be told a number of times to do something. - SUBSTANCE USE Smoking Status *Q: Current Some Day Smoker Tobacco Use Within Last Twelve Months: Cigarettes Second Hand Smoke Exposure: No Days Per Week of Alcohol Use: 0 Recreational Drug Use History: No - HOME MEDS Home Medications: Home Meds Labetalol HCl [Labetalol] 300 mg PO BID 08/29/14 [History] Acetaminophen with Codeine [Tylenol with Codeine #3 Tablet] 1 - 2 each PO Q6H PRN 07/24/19 [History] PNV95/Ferrous Fumarate/FA [ Tablet] 1 each PO DAILY 07/24/19 [History] - CURRENT (IN HOUSE) MEDS Current Meds: Current Medications Calcium Gluconate (Calcium Gluconate) 1 gm IV ASDIRECTED PRN PRN Reason: respiratory distress Cefazolin Sodium/Dextrose 1 gm (/ Premix) 50 mls @ 100 mls/hr IV Q8H HEVER Lactated Ringer's (Ringers, Lactated) 1,000 mls @ 100 mls/hr IV ASDIRECTED HEVER Last Admin: 07/24/19 20:42 Dose: 100 mls/hr Oxytocin/Lactated Ringer's (Pitocin In Lr 10 Units/1,000 Ml) 10 unit in 1,000 mls @ 12 mls/hr IV TITRATE HEVER; Protocol Nalbuphine HCl (Nubain) 10 mg IVPUSH Q2H PRN PRN Reason: Pain Sodium Chloride (Saline Flush) 10 ml FLUSH ASDIRECTED PRN PRN Reason: Keep Vein Open Discontinued Medications Cefazolin Sodium/Dextrose 2 gm (/ Premix) 50 mls @ 100 mls/hr IV ONETIME ONE Stop: 07/24/19 19:39 Last Admin: 07/24/19 19:50 Dose: 100 mls/hr Magnesium Sulfate 4 gm/ Premix 50 mls @ 450 mls/hr IV ONETIME ONE Stop: 07/24/19 19:16 Last Admin: 07/24/19 20:25 Dose: 450 mls/hr Magnesium Sulfate 2 gm/ Premix 50 mls @ 300 mls/hr IV ONETIME ONE Stop: 07/24/19 19:19 Labetalol HCl (Normodyne) 20 mg IVPUSH ONETIME ONE; Protocol Stop: 07/24/19 19:11 Last Admin: 07/24/19 19:41 Dose: 4 ml Labetalol HCl (Normodyne) 40 mg IVPUSH ONETIME ONE; Protocol Stop: 07/24/19 20:20 Last Admin: 07/24/19 20:43 Dose: 8 ml
[2019-07-24] MEDS: fentaNYL 100 MCG/2 ML SDV EPIDUR PRN (21:18)
[2019-07-24] MEDS ORDERED: Acetaminophen 325 MG Tab PO ONE (21:34)
[2019-07-24] MEDS ORDERED: Ondansetron 4 MG/2 ML SDV IVPUSH PRN (21:42)
[2019-07-24] MEDS: Magnesium Sulfate/Water 40 GM/1,000 ML BAG IV SCH (21:46)
[2019-07-24] MEDS ORDERED: Ondansetron 4 MG/2 ML SDV ONE (21:49)
[2019-07-25] MEDS ORDERED: Lidocaine 1.5% with EPINEPHrine 1:200,000 5 ML Amp ONE
[2019-07-25] MEDS ORDERED: Bupivacaine 0.25% 10 ML SDV ONE
[2019-07-25] MEDS ORDERED: Acetaminophen/oxyCODONE 325-5 MG Tab PO ONE (02:07)
[2019-07-25] MEDS: Lactated Ringers 1,000 ML IV SCH ×2 (02:26→20:06)
[2019-07-25] MEDS: ceFAZolin 1 GM in Premix Bag 1 BAG IV SCH ×2 (03:20→10:43)
--- NOTE | 2019-07-25 07:28 | PCM.PNLD ---
Labor Progress Note - VS & Meds Vital Signs: Last Vital Signs Temp 36.9 C 07/24/19 19:10 Pulse 99 07/24/19 19:10 Resp 18 07/24/19 19:10 BP 184/119 H 07/24/19 19:10 Pulse Ox Active Medications: Current Medications Calcium Gluconate (Calcium Gluconate) 1 gm IV ASDIRECTED PRN PRN Reason: respiratory distress Diphenhydramine HCl (Benadryl) 25 mg IVPUSH Q6H PRN PRN Reason: pruritis Ephedrine Sulfate (Ephedrine Sulfate) 5 mg IVPUSH ASDIRECTED PRN PRN Reason: Hypotension Fentanyl (Sublimaze) 100 mcg EPIDUR Q3H PRN PRN Reason: Pain Last Admin: 07/24/19 21:18 Dose: 100 mcg Fentanyl/Bupivacaine HCl (Fentanyl/Bupivacaine/Ns 2 Mcg-0.125% 250 Ml) 2 mcg EPIDUR CONTINUOUS PRN PRN Reason: Pain Last Admin: 07/24/19 21:41 Dose: 2 mcg Cefazolin Sodium/Dextrose 1 gm (/ Premix) 50 mls @ 100 mls/hr IV Q8H HEVER Last Admin: 07/25/19 03:20 Dose: 100 mls/hr Lactated Ringer's (Ringers, Lactated) 1,000 mls @ 100 mls/hr IV ASDIRECTED HEVER Last Admin: 07/25/19 02:26 Dose: 100 mls/hr Oxytocin/Lactated Ringer's (Pitocin In Lr 10 Units/1,000 Ml) 10 unit in 1,000 mls @ 12 mls/hr IV TITRATE HEVER; Protocol Last Titration: 07/25/19 04:52 Dose: 12 munits/min, 72 mls/hr Magnesium Sulfate (Magnesium Sulfate In Water Premix) 40 gm in 1,000 mls @ 50 mls/hr IV ASDIRECTED HEVER Last Admin: 07/24/19 21:46 Dose: 50 mls/hr Nalbuphine HCl (Nubain) 10 mg IVPUSH Q2H PRN PRN Reason: Pain Ondansetron HCl (Zofran) 4 mg IVPUSH Q4H PRN PRN Reason: Nausea Last Admin: 07/24/19 21:53 Dose: 4 mg Sodium Chloride (Saline Flush) 10 ml FLUSH ASDIRECTED PRN PRN Reason: Keep Vein Open Discontinued Medications Acetaminophen (Tylenol) 650 mg PO NOW ONE Stop: 07/24/19 21:35 Last Admin: 07/24/19 21:50 Dose: 650 mg Cefazolin Sodium/Dextrose 2 gm (/ Premix) 50 mls @ 100 mls/hr IV ONETIME ONE Stop: 07/24/19 19:39 Last Admin: 07/24/19 19:50 Dose: 100 mls/hr Magnesium Sulfate 4 gm/ Premix 50 mls @ 450 mls/hr IV ONETIME ONE Stop: 07/24/19 19:16 Last Admin: 07/24/19 20:25 Dose: 450 mls/hr Magnesium Sulfate 2 gm/ Premix 50 mls @ 300 mls/hr IV ONETIME ONE Stop: 07/24/19 19:19 Last Admin: 07/24/19 20:45 Dose: 300 mls/hr Labetalol HCl (Normodyne) 20 mg IVPUSH ONETIME ONE; Protocol Stop: 07/24/19 19:11 Last Admin: 07/24/19 19:41 Dose: 4 ml Labetalol HCl (Normodyne) 40 mg IVPUSH ONETIME ONE; Protocol Stop: 07/24/19 20:20 Last Admin: 07/24/19 20:43 Dose: 8 ml Ondansetron HCl (Zofran) Confirm Administered Dose 4 mg .ROUTE .STK-MED ONE Stop: 07/24/19 21:50 Oxycodone/Acetaminophen (Percocet 325-5 Mg) 2 tab PO ONETIME ONE Stop: 07/25/19 02:08 Last Admin: 07/25/19 02:17 Dose: 2 tab - Monitoring Heart Rate (FHR) Variability: Moderate (6-25 bmp) Strip Review: Category I - Vaginal Exam Dilation (cm): 6 Effacement (Percent): 80 Station: -2 Cervical Position: Midposition - Labor Progress (Free Text) Labor Progress: Progressing well. UOP greater than 70/hr Doing well. Headache resolved. Comfortable Blood pressures controlled since epidural (2 doses IV labetolol prior to that)
[2019-07-25] MEDS: fentaNYL 100 MCG/2 ML SDV EPIDUR PRN (08:34)
[2019-07-25] MEDS ORDERED: Oxytocin/Lactated Ringers 10 UNIT/1,000 ML BAG IV SCH (12:45)
--- NOTE | 2019-07-25 13:05 | PCM.SN ---
- Free Text/Narrative Note: Stage I - Patient presented with elevated blood pressures and severe gestational hypertension. Progressed to complete with magnesium and 2 doses of IV labetolol. Epidural for anesthesia. Pitocin augmentation. Stage II - of viable male, weight 3230, 9/9 APGARS at 1217. Head delivered in controlled manner over intact perineum. Body and shoulders without difficulty. Cord clamped and cut. Vigorous cry. Stage III - of intact placenta. 3vc. No laceration. EBL 300
[2019-07-25] MEDS ORDERED: Acetaminophen 325 MG Tab PO PRN (13:29)
[2019-07-25] MEDS ORDERED: Labetalol 100 MG/20 ML MDV IVPUSH ONE (13:59)
[2019-07-25] MEDS: Acetaminophen/oxyCODONE 325-5 MG Tab PO PRN ×2 (14:07→20:27)
[2019-07-25] MEDS ORDERED: hydrALAZINE 20 MG/ML SDV IVPUSH ONE ×3 (14:31→19:10)
[2019-07-25] MEDS ORDERED: Lisinopril 10 MG Tab PO SCH (15:45)
[2019-07-25] MEDS: Hydrochlorothiazide 12.5 MG Cap PO SCH (16:10)
[2019-07-25] MEDS: amLODIPine 5 MG Tab PO SCH (17:15)
[2019-07-25] MEDS: NIFEdipine 10 MG Cap PO SCH (17:52)
[2019-07-25] MEDS ORDERED: Lidocaine 1% 4 ML ONE (18:34)
--- NOTE | 2019-07-25 18:48 | PCM.SN ---
- Free Text/Narrative Note: Anesthesia Note: Start: 1839 Stop: 1844 Anesthesia requested for IV start. 20 gauge to right inner wrist times one attempt. Site patent and intact and flushed with 10ml's of NS.
--- NOTE | 2019-07-25 18:49 | PCM48HPAN ---
Post Anesthesia Note - EVALUATION WITHIN 48HRS OF ANESTHETIC Vital Signs in Normal Range: Yes Patient Participated in Evaluation: Yes Respiratory Function Stable: Yes Airway Patent: Yes Cardiovascular Function Stable: Yes Hydration Status Stable: Yes Pain Control Satisfactory: Yes Nausea and Vomiting Control Satisfactory: Yes Mental Status Recovered: Yes Vital Signs: Last Vital Signs Temp 36.9 C 07/24/19 19:10 Pulse 91 07/25/19 15:06 Resp 18 07/24/19 19:10 BP 166/93 H 07/25/19 17:52 Pulse Ox 100 07/25/19 11:30
[2019-07-25] MEDS ORDERED: hydrALAZINE 20 MG/ML SDV ONE (19:06)
--- NOTE | 2019-07-25 19:08 | PCM.CONS ---
H&P History of Present Illness - General Date of Service: 07/25/19 Admit Problem/Dx: Patient Status Order with Admit Dx/Problem 07/24/19 19:14 Patient Status [ADT] Routine Admission Diagnosis/Problem Admission Diagnosis/Problem Pre-eclampsia - History of Present Illness Initial Comments - Free Text/Narative: 29-year-old delivered today at noon at 39 weeks 0 days by 23 week ultrasound with a history of chronic hypertension. Hospitalist service was consult at secondary to hypertension. Patient was initially seen by Dr. Archer in [place] and at second visit, 34 weeks 5 days, her blood pressure was 170/ 100. She was next seen on July 12, 2019 and on July 19 she was transferred to [place] for elevated blood pressure. She requested transfer because she did not want to deliver at [place]. Patient was induced today secondary to hypertension and proteinuria. Blood pressures were elevated and controlled with 2 doses of labetalol and epidural seemed to make a significant difference. After delivery she was given 1 dose of labetalol 20 mg and started on magnesium sulfate 1 g every hour, expected duration for 24 hours. 2 hours later she was given 1 dose of hydralazine 5 mg and a second dose of one hour later of 20 mg IV. Patient refused Procardia secondary to it causing her headaches. Patient was on Lotrel 520 prior to and on labetalol during . Patient has been given 10 mg lisinopril. Patient denies any headache, shortness of breath, blurred vision, chest pain, or other neurologic symptoms. IV infiltrated just prior to me visiting with her and she refused hydralazine 10 mg IM. Patient was very insistent that she needed a cigarette. Patient blood pressures during this time were significantly elevated up to 235 systolic. Patient refused Ativan for anxiety. - Related Data Allergies/Adverse Reactions: Allergies Allergy/AdvReac Type Severity Reaction Status Date / Time ketorolac [From Toradol] Allergy Rash Verified 05/28/19 11:33 Penicillins Allergy Hives Verified 05/28/19 11:33 ibuprofen AdvReac Stomach Verified 05/28/19 11:33 Upset Home Medications: Home Meds Labetalol HCl [Labetalol] 300 mg PO BID 08/29/14 [History] Acetaminophen with Codeine [Tylenol with Codeine #3 Tablet] 1 - 2 each PO Q6H PRN 07/24/19 [History] PNV95/Ferrous Fumarate/FA [ Tablet] 1 each PO DAILY 07/24/19 [History] Past Medical History HEENT History: Reports: Other (See Below) Other HEENT History: tooth pain, dental abcess, left eye trauma, left subconjnctival hematoma, visual changes Cardiovascular History: Reports: Hypertension Other Cardiovascular History: pt states has chronic hypertension for 5 years.- gestational hypertension Respiratory History: Reports: None Gastrointestinal History: Reports: None, GERD (occcasionally) Other Genitourinary History: 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: 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, Other (See Below) Other OB/BYN History: bacterial vaginosis, irregular menses, laproscopy Musculoskeletal History: Reports: Other (See Below) Other Musculoskeletal History: 5th metatarsal fracture, left foot pain, low back pain Neurological History: Reports: Headaches, Chronic, Migraines Psychiatric History: Reports: None, Anxiety, Other (See Below) (migraines) Endocrine/Metabolic History: Reports: None Hematologic History: Reports: None Immunologic History: Reports: None Oncologic (Cancer) History: Reports: None Dermatologic History: Reports: None - Infectious Disease History Infectious Disease History: Reports: None - Past Surgical History Head Surgeries/Procedures: Reports: None HEENT Surgical History: Reports: Tonsillectomy Cardiovascular Surgical History: Reports: None Respiratory Surgical History: Reports: None GI Surgical History: Reports: None, Other (See Below) Other GI Surgeries/Procedures: laparoscopy Female Surgical History: Reports: None Endocrine Surgical History: Reports: None Neurological Surgical History: Reports: None Musculoskeletal Surgical History: Reports: None Oncologic Surgical History: Reports: None Dermatological Surgical History: Reports: None - History Comment History Comment: patient not wanting to cooperate all the time. Refuses to open mouth and etc. Has to be told a number of times to do something. Social & Family History - Family History Family Medical History: Noncontributory Cardiac: Reports: Hypertension Endocrine/Metabolic: Reports: Diabetes, type II Oncologic: Reports: Leukemia - Tobacco Use Smoking Status *Q: Current Some Day Smoker Years of Tobacco use: 9 Packs/Tins Daily: 0.2 Second Hand Smoke Exposure: No - Caffeine Use Caffeine Use: Reports: Coffee, Energy Drinks, Soda - Alcohol Use Days Per Week of Alcohol Use: 0 - Recreational Drug Use Recreational Drug Use: No H&P Review of Systems - Review of Systems: Review Of Systems: ROS reveals no pertinent complaints other than HPI. Exam - Exam Exam: See Below - Vital Signs Vital Signs: Last Vital Signs Temp 98.4 F 07/24/19 19:10 Pulse 91 07/25/19 15:06 Resp 18 07/24/19 19:10 BP 166/93 H 07/25/19 17:52 Pulse Ox 100 07/25/19 11:30 Weight: 185 lb - Exam Quality Assessment: No: Supplemental Oxygen General: Alert, Oriented, 4 HEENT: Conjunctiva Clear, EOMI, Hearing Intact, Mucosa Moist & [place], Normal Nasal Septum, PERRLA Neck: Supple, Trachea Midline, 2 Lungs: Clear to Auscultation, Normal Respiratory Effort Cardiovascular: Regular Rate, Regular Rhythm, Systolic Murmur (Ejection murmur best heard at the right second intercostal space) GI/Abdominal Exam: Normal Bowel Sounds, Soft, Non-Tender Extremities: Pedal Edema (1+ pitting edema) Skin: Warm, Dry, Intact Neuro Extensive - Mental Status: Alert, Oriented x3. No: Normal Mood/Affect ( Anxious appearing) Psychiatric: Alert, Anxious - Patient Data Lab Results Last 24 hrs: Laboratory Results - last 24 hr 07/24/19 07/24/19 07/24/19 Range/Units 18:30 18:30 20:45 WBC (3.98-10.04) K/mm3 RBC (3.98-5.22) M/mm3 Hgb (11.2-15.7) gm/dl Hct (34.1-44.9) % MCV (79.4-94.8) fl MCH (25.6-32.2) pg MCHC (32.2-35.5) g/dl RDW Std Deviation (36.4-46.3) fL Plt Count (182-369) K/mm3 MPV (9.4-12.3) fl Neut % (Auto) (34.0-71.1) % Lymph % (Auto) (19.3-51.7) % [place] % (Auto) (4.7-12.5) % Eos % (Auto) (0.7-5.8) Baso % (Auto) (0.1-1.2) % Neut # (Auto) (1.56-6.13) K/mm3 Lymph # (Auto) (1.18-3.74) K/mm3 [place] # (Auto) (0.24-0.36) K/mm3 Eos # (Auto) (0.04-0.36) K/mm3 Baso # (Auto) (0.01-0.08) K/mm3 BUN (7-18) mg/dL Creatinine (0.55-1.02) mg/dL Est Cr Clr Drug Dosing mL/min Estimated GFR (MDRD) (>60) mL/min Uric Acid (2.6-6.0) mg/dL AST (15-37) U/L ALT (14-59) U/L Lactate Dehydrogenase (81-234) U/L Urine Color Yellow (Yellow) Urine Appearance Slt cloudy H (Clear) Urine pH 7.0 (5.0-8.0) Ur Specific [place] 1.025 (1.005-1.030) Urine Protein 2+ H (Negative) Urine Glucose (UA) Negative (Negative) Urine Ketones Negative (Negative) Urine Occult Blood Negative (Negative) Urine Nitrite Negative (Negative) Urine Bilirubin Negative (Negative) Urine Urobilinogen 0.2 (0.2-1.0) Ur Leukocyte Esterase Negative (Negative) Urine Opiates Screen Negative (UJTLEG=820) Ur Buprenorphine Scrn Negative (CUTOFF=10) Ur Oxycodone Screen Negative (XPR9KH=307) Urine Methadone Screen Negative (ONQOEP=278) Ur Propoxyphene Screen Negative (KMBYZG=224) Ur Barbiturates Screen Negative (EPHBLR=517) Ur Tricyclics Screen Negative (RTEKBB=803) Ur Phencyclidine Scrn Negative (CUTOFF=25) Ur Amphetamine Screen Negative (GYGLVR=571) U Methamphetamines Scrn Negative (HSGRSE=679) U Benzodiazepines Scrn Negative (DPWBFY=053) U Cocaine Metab Screen Negative (VTEAAJ=311) U Marijuana (THC) Screen Negative (CUTOFF=50) RPR Non-reactive (NONREACTIVE) Blood Type Gel Antibody Screen 07/24/19 07/24/19 07/24/19 Range/Units 20:45 20:45 20:45 WBC 12.97 H (3.98-10.04) K/mm3 RBC 3.45 L (3.98-5.22) M/mm3 Hgb 10.0 L D (11.2-15.7) gm/dl Hct 30.4 L (34.1-44.9) % MCV 88.1 D (79.4-94.8) fl MCH 29.0 (25.6-32.2) pg MCHC 32.9 (32.2-35.5) g/dl RDW Std Deviation 46.1 (36.4-46.3) fL Plt Count 244 D (182-369) K/mm3 MPV 10.4 (9.4-12.3) fl Neut % (Auto) 72.0 H (34.0-71.1) % Lymph % (Auto) 20.4 (19.3-51.7) % [place] % (Auto) 6.5 (4.7-12.5) % Eos % (Auto) 0.8 (0.7-5.8) Baso % (Auto) 0.1 (0.1-1.2) % Neut # (Auto) 9.35 H (1.56-6.13) K/mm3 Lymph # (Auto) 2.64 (1.18-3.74) K/mm3 [place] # (Auto) 0.84 H (0.24-0.36) K/mm3 Eos # (Auto) 0.10 (0.04-0.36) K/mm3 Baso # (Auto) 0.01 (0.01-0.08) K/mm3 BUN 8 (7-18) mg/dL Creatinine 0.6 (0.55-1.02) mg/dL Est Cr Clr Drug Dosing 106.28 mL/min Estimated GFR (MDRD) > 60 (>60) mL/min Uric Acid 4.7 (2.6-6.0) mg/dL AST 13 L (15-37) U/L ALT 14 (14-59) U/L Lactate Dehydrogenase 297 H (81-234) U/L Urine Color (Yellow) Urine Appearance (Clear) Urine pH (5.0-8.0) Ur Specific [place] (1.005-1.030) Urine Protein (Negative) Urine Glucose (UA) (Negative) Urine Ketones (Negative) Urine Occult Blood (Negative) Urine Nitrite (Negative) Urine Bilirubin (Negative) Urine Urobilinogen (0.2-1.0) Ur Leukocyte Esterase (Negative) Urine Opiates Screen (MJKEIT=091) Ur Buprenorphine Scrn (CUTOFF=10) Ur Oxycodone Screen (NYJ1NY=395) Urine Methadone Screen (BENKDM=835) Ur Propoxyphene Screen (KQOCRH=433) Ur Barbiturates Screen (CCUMQS=127) Ur Tricyclics Screen (OPDHBB=936) Ur Phencyclidine Scrn (CUTOFF=25) Ur Amphetamine Screen (YCQEWX=929) U Methamphetamines Scrn (SMPQEG=126) U Benzodiazepines Scrn (LBWAFH=598) U Cocaine Metab Screen (TEDXZN=396) U Marijuana (THC) Screen (CUTOFF=50) RPR (NONREACTIVE) Blood Type A POSITIVE Gel Antibody Screen Negative Result Diagrams: 07/24/19 20:45 07/24/19 20:45 Consult PN Assessment/Plan Procedures: Procedures AIRWAY INHALATION TREATMENT (12/01/17) ASSAY OF LIPASE (10/24/14) ASSAY OF METANEPHRINES (10/16/14) ASSAY THYROID STIM HORMONE (02/18/14) BLOOD TYPING SEROLOGIC ABO (02/18/14) BLOOD TYPING SEROLOGIC RH(D) (02/18/14) C-REACTIVE PROTEIN (05/02/15) CHORIONIC GONADOTROPIN ASSAY (05/02/15) CHYLMD TRACH DNA AMP PROBE (05/09/15) COMPLETE CBC W/AUTO DIFF WBC (12/01/17) COMPREHEN METABOLIC PANEL (05/02/15) CT ABD & PELV W/CONTRAST (05/02/15) EMERGENCY DEPT VISIT (05/28/19) EMERGENCY DEPT VISIT (12/22/18) EMERGENCY DEPT VISIT (07/24/18) EMERGENCY DEPT VISIT (12/29/17) EMERGENCY DEPT VISIT (10/21/17) EMERGENCY DEPT VISIT (03/02/17) EMERGENCY DEPT VISIT (01/23/17) EMERGENCY DEPT VISIT (11/26/16) EMERGENCY DEPT VISIT (10/19/16) EMERGENCY DEPT VISIT (07/31/16) EMERGENCY DEPT VISIT (05/17/16) EMERGENCY DEPT VISIT (05/13/15) EMERGENCY DEPT VISIT (05/09/15) EMERGENCY DEPT VISIT (05/02/15) EMERGENCY DEPT VISIT (04/07/15) EMERGENCY DEPT VISIT (03/16/15) EMERGENCY DEPT VISIT (02/28/15) EMERGENCY DEPT VISIT (01/31/15) EMERGENCY DEPT VISIT (11/23/14) EMERGENCY DEPT VISIT (11/11/14) EMERGENCY DEPT VISIT (11/02/14) EMERGENCY DEPT VISIT (10/10/14) EMERGENCY DEPT VISIT (10/05/14) EMERGENCY DEPT VISIT (10/02/14) EMERGENCY DEPT VISIT (09/23/14) EMERGENCY DEPT VISIT (09/22/14) EMERGENCY DEPT VISIT (09/18/14) EMERGENCY DEPT VISIT (09/07/14) EMERGENCY DEPT VISIT (08/27/14) EMERGENCY DEPT VISIT (04/18/14) HEPATITIS B SURFACE AG IA (02/18/14) HIV-1ANTIBODY (02/18/14) HYDRATE IV INFUSION ADD-ON (11/26/16) LAPAROSCOPY EXCISE LESIONS (12/01/17) N.GONORRHOEAE DNA AMP PROB (05/09/15) OB US >/= 14 WKS SNGL FETUS (04/23/14) RBC ANTIBODY SCREEN (02/18/14) RENAL FUNCTION PANEL (10/16/14) ROUTINE VENIPUNCTURE (12/01/17) SMEAR WET [place] SALINE/INK (11/20/17) SYPHILIS TEST NON-TREP QUAL (02/18/14) THER/PROPH/DIAG INJ IV PUSH (05/13/15) THER/PROPH/DIAG INJ SC/IM (03/14/17) THER/PROPH/DIAG IV INF INIT (11/26/16) TRANSVAGINAL US NON-OB (11/22/17) TRICHOMONAS ASSAY W/OPTIC (11/20/17) TX/PRO/DX INJ NEW DRUG ADDON (11/26/16) TX/PRO/DX INJ SAME DRUG WATCH ASSEMBLER (05/02/15) URINALYSIS AUTO W/O SCOPE (09/11/14) URINALYSIS AUTO W/SCOPE (12/29/17) URINE BACTERIA CULTURE (12/01/17) URINE CULTURE/COLONY COUNT (12/01/17) URINE TEST (12/29/17) US EXAM ABDO BACK [place] (10/16/14) US EXAM PELVIC COMPLETE (02/14/15) X-RAY EXAM L-S SPINE 2/3 VWS (03/27/17) X-RAY EXAM OF ABDOMEN (05/02/15) X-RAY EXAM OF FOOT (10/02/17) X-RAY EXAM OF KNEE 3 (08/12/15) X-RAY EXAM OF TOE(S) (09/12/17) Problem List Initiated/Reviewed/Updated: Yes Plan: Assessment * 29-year-old day 1 with history of chronic hypertension having severe hypertension. * Proteinuria 2+ on dipstick- possible preeclampsia * Nicotinism * Noncompliant with refusing medications Plan * Recommended patient be transferred to the ICU for close monitoring but patient refused. * Monitor on telemetry. * Restart amlodipine 5 mg by mouth now and daily. * Give additional lisinopril 10 mg by mouth now for total of 20 mg daily. * Hydralazine 10 mg IV when IV access is obtained. * Lopressor 5 mg every 4 hours when necessary SBP > 160 or DBP > 110 or HR > 110 * We will monitor closely.
[2019-07-25] MEDS: Magnesium Sulfate/Water 40 GM/1,000 ML BAG IV SCH (19:29)
[2019-07-25] MEDS ORDERED: Lisinopril 10 MG Tab PO ONE (20:40)
[2019-07-25] MEDS ORDERED: hydrALAZINE 20 MG/ML SDV IVPUSH PRN (20:41)
[2019-07-25] MEDS ORDERED: Metoprolol Tartrate 5 MG/5 ML SDV IVPUSH PRN (20:43)
[2019-07-26] MEDS: Lactated Ringers 1,000 ML IV SCH (00:50)
[2019-07-26] MEDS: Acetaminophen/oxyCODONE 325-5 MG Tab PO PRN ×3 (02:28→13:59)
[2019-07-26] MEDS: NIFEdipine 10 MG Cap PO SCH ×3 (06:18→12:14)
--- NOTE | 2019-07-26 08:05 | PCM.DCSUM1 ---
Discharge Summary - Hospital Course Brief History: Sparse care. Presented with blood pressures 170/100s. Plan for induction of labor Diagnosis: Stroke: No - Discharge Data Discharge Date: 07/26/19 Discharge Disposition: Home, Self-Care 01 Condition: Good - Referral to Home Health Primary Care Physician: PCP None - Patient Summary/Data Consults: Consultations 07/25/19 17:22 Consult to Physician [CONS] Routine - Patient Instructions Diet: Usual Diet as Tolerated Activity: No Strenuous Activities Driving: May Drive Today Showering/Bathing: May Shower Notify Provider of: Fever, Increased Pain, Swelling and Redness, Drainage, Nausea and/or Vomiting - Discharge Plan *PRESCRIPTION DRUG MONITORING PROGRAM REVIEWED*: No *COPY OF PRESCRIPTION DRUG MONITORING REPORT IN PATIENT YVONNE: No Home Medications: Home Meds Labetalol HCl [Labetalol] 300 mg PO BID 08/29/14 [History] Acetaminophen with Codeine [Tylenol with Codeine #3 Tablet] 1 - 2 each PO Q6H PRN 07/24/19 [History] PNV95/Ferrous Fumarate/FA [ Tablet] 1 each PO DAILY 07/24/19 [History] Patient Handouts: Steps to Quit Smoking Referrals: Delaney Francois MD [Physician] - (4 weeks) Tiffanie Fitzpatrick MD [Physician] - (1-2 week hospital followup) - Discharge Summary/Plan Comment DC Time >30 min.: No - Patient Data Vitals - Most Recent: Last Vital Signs Temp 36.6 C 07/26/19 06:00 Pulse 95 07/26/19 06:00 Resp 15 07/26/19 06:00 BP 136/72 07/26/19 06:00 Pulse Ox 96 07/26/19 06:00 Weight - Most Recent: 102.875 kg I&O - Last 24 hours: Intake & Output 07/25/19 07/26/19 07/26/19 22:59 06:59 14:59 Intake Total 1240 500 Output Total 5550 2800 500 Balance -4310 -2300 -500 Lab Results - Last 24 hrs: Laboratory Results - last 24 hr 07/26/19 07/26/19 Range/Units 05:47 05:47 WBC 14.66 H (3.98-10.04) K/mm3 RBC 3.24 L (3.98-5.22) M/mm3 Hgb 9.4 L (11.2-15.7) gm/dl Hct 28.8 L (34.1-44.9) % MCV 88.9 (79.4-94.8) fl MCH 29.0 (25.6-32.2) pg MCHC 32.6 (32.2-35.5) g/dl RDW Std Deviation 47.6 H (36.4-46.3) fL Plt Count 239 (182-369) K/mm3 MPV 10.6 (9.4-12.3) fl Sodium 138 (136-145) mEq/L Potassium 2.9 L (3.5-5.1) mEq/L Chloride 103 (98-107) mEq/L Carbon Dioxide 26 (21-32) mEq/L Anion Gap 11.9 (5-15) BUN 7 (7-18) mg/dL Creatinine 0.6 (0.55-1.02) mg/dL Est Cr Clr Drug Dosing 106.28 mL/min Estimated GFR (MDRD) > 60 (>60) mL/min BUN/Creatinine Ratio 11.7 L (14-18) Glucose 86 (74-106) mg/dL Calcium 7.8 L D (8.5-10.1) mg/dL Total Bilirubin 0.2 (0.2-1.0) mg/dL AST 25 (15-37) U/L ALT 13 L (14-59) U/L Alkaline Phosphatase 131 H (46-116) U/L Total Protein 5.9 L (6.4-8.2) g/dl Albumin 2.3 L (3.4-5.0) g/dl Globulin 3.6 gm/dL Albumin/Globulin Ratio 0.6 L (1-2) Med Orders - Current: Current Medications Acetaminophen (Tylenol) 650 mg PO Q4H PRN PRN Reason: Pain Amlodipine Besylate (Norvasc) 5 mg PO DAILY [facility] Last Admin: 07/25/19 17:15 Dose: 5 mg Calcium Gluconate (Calcium Gluconate) 1 gm IV ASDIRECTED PRN PRN Reason: respiratory distress Hydralazine HCl (Apresoline) 10 mg IVPUSH Q2H PRN PRN Reason: Hypertension Hydrochlorothiazide (Hydrochlorothiazide) 12.5 mg PO DAILY [facility] Last Admin: 07/25/19 16:10 Dose: 12.5 mg Magnesium Sulfate (Magnesium Sulfate In Water Premix) 40 gm in 1,000 mls @ 50 mls/hr IV ASDIRECTED [facility] Last Admin: 07/25/19 19:29 Dose: 50 mls/hr Lactated Ringer's (Ringers, Lactated) 1,000 mls @ 50 mls/hr IV ASDIRECTED [facility]; Protocol Last Admin: 07/26/19 00:50 Dose: 50 mls/hr Lisinopril (Prinivil) 20 mg PO Q24H [facility] Metoprolol Tartrate (Lopressor) 5 mg IVPUSH Q4H PRN PRN Reason: Hypertension Nifedipine (Procardia) 10 mg PO Q6H [facility] Last Admin: 07/26/19 06:18 Dose: Not Given Oxycodone/Acetaminophen (Percocet 325-5 Mg) 1 - 2 tab PO Q6H PRN PRN Reason: Pain Last Admin: 07/26/19 02:28 Dose: 2 tab Potassium Chloride (Potassium Chloride Solution) 40 meq PO BID [facility] Stop: 07/26/19 21:01 Discontinued Medications Acetaminophen (Tylenol) 650 mg PO NOW ONE Stop: 07/24/19 21:35 Last Admin: 07/24/19 21:50 Dose: 650 mg Diphenhydramine HCl (Benadryl) 25 mg IVPUSH Q6H PRN PRN Reason: pruritis Ephedrine Sulfate (Ephedrine Sulfate) 5 mg IVPUSH ASDIRECTED PRN PRN Reason: Hypotension Fentanyl (Sublimaze) 100 mcg EPIDUR Q3H PRN PRN Reason: Pain Last Admin: 07/25/19 08:34 Dose: 100 mcg Fentanyl/Bupivacaine HCl (Fentanyl/Bupivacaine/Ns 2 Mcg-0.125% 250 Ml) 2 mcg EPIDUR CONTINUOUS PRN PRN Reason: Pain Last Admin: 07/24/19 21:41 Dose: 2 mcg Hydralazine HCl (Apresoline) 5 mg IVPUSH ONETIME ONE Stop: 07/25/19 14:32 Last Admin: 07/25/19 14:41 Dose: 5 mg Hydralazine HCl (Apresoline) 20 mg IVPUSH ONETIME ONE Stop: 07/25/19 15:19 Last Admin: 07/25/19 15:27 Dose: 20 mg Hydralazine HCl (Apresoline) Confirm Administered Dose 20 mg .ROUTE .STK-MED ONE Stop: 07/25/19 19:07 Last Admin: 07/25/19 20:03 Dose: Not Given Hydralazine HCl (Apresoline) 10 mg IVPUSH ONETIME ONE Stop: 07/25/19 19:11 Last Admin: 07/25/19 19:20 Dose: 10 mg Cefazolin Sodium/Dextrose 2 gm (/ Premix) 50 mls @ 100 mls/hr IV ONETIME ONE Stop: 07/24/19 19:39 Last Admin: 07/24/19 19:50 Dose: 100 mls/hr Cefazolin Sodium/Dextrose 1 gm (/ Premix) 50 mls @ 100 mls/hr IV Q8H [facility] Last Admin: 07/25/19 10:43 Dose: 100 mls/hr Lactated Ringer's (Ringers, Lactated) 1,000 mls @ 100 mls/hr IV ASDIRECTED [facility] Last Admin: 07/25/19 02:26 Dose: 100 mls/hr Magnesium Sulfate 4 gm/ Premix 50 mls @ 450 mls/hr IV ONETIME ONE Stop: 07/24/19 19:16 Last Admin: 07/24/19 20:25 Dose: 450 mls/hr Magnesium Sulfate 2 gm/ Premix 50 mls @ 300 mls/hr IV ONETIME ONE Stop: 07/24/19 19:19 Last Admin: 07/24/19 20:45 Dose: 300 mls/hr Oxytocin/Lactated Ringer's (Pitocin In Lr 10 Units/1,000 Ml) 10 unit in 1,000 mls @ 12 mls/hr IV TITRATE [facility]; Protocol Last Titration: 07/25/19 08:33 Dose: 15 munits/min, 90 mls/hr Oxytocin/Lactated Ringer's (Pitocin In Lr 10 Units/1,000 Ml) 10 unit in 1,000 mls @ 500 mls/hr IV ASDIRECTED [facility]; Protocol Last Admin: 07/25/19 12:20 Dose: 500 mls/hr Lidocaine HCl (Xylocaine-Mpf 1%) Confirm Administered Dose 4 mls @ as directed .ROUTE .STK-MED ONE Stop: 07/25/19 18:35 Labetalol HCl (Normodyne) 20 mg IVPUSH ONETIME ONE; Protocol Stop: 07/24/19 19:11 Last Admin: 07/24/19 19:41 Dose: 4 ml Labetalol HCl (Normodyne) 40 mg IVPUSH ONETIME ONE; Protocol Stop: 07/24/19 20:20 Last Admin: 07/24/19 20:43 Dose: 8 ml Labetalol HCl (Normodyne) 20 mg IVPUSH ONETIME ONE; Protocol Stop: 07/25/19 14:00 Last Admin: 07/25/19 14:08 Dose: 20 mg Lisinopril (Prinivil) 10 mg PO DAILY [facility] Last Admin: 07/25/19 16:10 Dose: 10 mg Lisinopril (Prinivil) 10 mg PO ONETIME ONE Stop: 07/25/19 20:41 Last Admin: 07/25/19 21:18 Dose: 10 mg Nalbuphine HCl (Nubain) 10 mg IVPUSH Q2H PRN PRN Reason: Pain Ondansetron HCl (Zofran) 4 mg IVPUSH Q4H PRN PRN Reason: Nausea Last Admin: 07/24/19 21:53 Dose: 4 mg Ondansetron HCl (Zofran) Confirm Administered Dose 4 mg .ROUTE .STK-MED ONE Stop: 07/24/19 21:50 Last Admin: 07/25/19 21:05 Dose: Not Given Oxycodone/Acetaminophen (Percocet 325-5 Mg) 2 tab PO ONETIME ONE Stop: 07/25/19 02:08 Last Admin: 07/25/19 02:17 Dose: 2 tab Sodium Chloride (Saline Flush) 10 ml FLUSH ASDIRECTED PRN PRN Reason: Keep Vein Open
[2019-07-26] MEDS: amLODIPine 5 MG Tab PO SCH (08:52)
[2019-07-26] MEDS: Potassium Chloride 10% 20 MEQ/15 ML Soln 15 ML UD Cup PO SCH ×2 (08:53→09:37)
[2019-07-26] MEDS: Hydrochlorothiazide 12.5 MG Cap PO SCH (08:53)
[2019-07-26] MEDS ORDERED: Potassium Chloride 20 MEQ Tab.ER PO SCH (09:30)
[2019-07-26 12:06] VITALS: BP 153/85; PULSE 82
[2019-07-26] MEDS ORDERED: Measles, Mumps & Rubella Vaccine 0.5 ML SDV SUBCUT ONE (13:49)
[2019-07-26] MEDS ORDERED: FLU Vacc QS2019-20(6MOS+)/PF 60 MCG/0.5 ML SYRINGE IM ONE (13:51)
--- NOTE | 2019-07-26 14:32 | PCM.CONSN ---
- General Info Date of Service: 07/26/19 Admission Dx/Problem (Free Text): Patient Status Order with Admit Dx/Problem 07/24/19 19:14 Patient Status [ADT] Routine Admission Diagnosis/Problem Admission Diagnosis/Problem Pre-eclampsia Subjective Update: patient doing well this morning. She denies any chest pain, blurred vision, headache, or shortness of breath. Her blood pressures have been less than 160/ 100 all evening and into the morning. Magnesium was turned off approximately 2 hours ago. Functional Status: Reports: Pain Controlled - Review of Systems General: Reports: No Symptoms HEENT: Reports: No Symptoms Pulmonary: Reports: No Symptoms Cardiovascular: Reports: No Symptoms Gastrointestinal: Reports: No Symptoms - Patient Data Vitals - Most Recent: Last Vital Signs Temp 98.2 F 07/26/19 12:00 Pulse 82 07/26/19 12:00 Resp 16 07/26/19 12:00 BP 153/85 H 07/26/19 12:14 Pulse Ox 97 07/26/19 12:00 Weight - Most Recent: 226 lb 12.8 oz I&O - Last 24 Hours: Intake & Output 07/25/19 07/26/19 07/26/19 22:59 06:59 14:59 Intake Total 1240 500 240 Output Total 5550 2800 1300 Balance -4310 -2300 -1060 Lab Results Last 24 Hours: Laboratory Results - last 24 hr 07/26/19 07/26/19 Range/Units 05:47 05:47 WBC 14.66 H (3.98-10.04) K/mm3 RBC 3.24 L (3.98-5.22) M/mm3 Hgb 9.4 L (11.2-15.7) gm/dl Hct 28.8 L (34.1-44.9) % MCV 88.9 (79.4-94.8) fl MCH 29.0 (25.6-32.2) pg MCHC 32.6 (32.2-35.5) g/dl RDW Std Deviation 47.6 H (36.4-46.3) fL Plt Count 239 (182-369) K/mm3 MPV 10.6 (9.4-12.3) fl Sodium 138 (136-145) mEq/L Potassium 2.9 L (3.5-5.1) mEq/L Chloride 103 (98-107) mEq/L Carbon Dioxide 26 (21-32) mEq/L Anion Gap 11.9 (5-15) BUN 7 (7-18) mg/dL Creatinine 0.6 (0.55-1.02) mg/dL Est Cr Clr Drug Dosing 106.28 mL/min Estimated GFR (MDRD) > 60 (>60) mL/min BUN/Creatinine Ratio 11.7 L (14-18) Glucose 86 (74-106) mg/dL Calcium 7.8 L D (8.5-10.1) mg/dL Total Bilirubin 0.2 (0.2-1.0) mg/dL AST 25 (15-37) U/L ALT 13 L (14-59) U/L Alkaline Phosphatase 131 H (46-116) U/L Total Protein 5.9 L (6.4-8.2) g/dl Albumin 2.3 L (3.4-5.0) g/dl Globulin 3.6 gm/dL Albumin/Globulin Ratio 0.6 L (1-2) Med Orders - Current: Current Medications Acetaminophen (Tylenol) 650 mg PO Q4H PRN PRN Reason: Pain Amlodipine Besylate (Norvasc) 5 mg PO DAILY [facility] Last Admin: 07/26/19 08:52 Dose: 5 mg Calcium Gluconate (Calcium Gluconate) 1 gm IV ASDIRECTED PRN PRN Reason: respiratory distress Hydralazine HCl (Apresoline) 10 mg IVPUSH Q2H PRN PRN Reason: Hypertension Hydrochlorothiazide (Hydrochlorothiazide) 12.5 mg PO DAILY [facility] Last Admin: 07/26/19 08:53 Dose: 12.5 mg Magnesium Sulfate (Magnesium Sulfate In Water Premix) 40 gm in 1,000 mls @ 50 mls/hr IV ASDIRECTED [facility] Last Admin: 07/25/19 19:29 Dose: 50 mls/hr Lactated Ringer's (Ringers, Lactated) 1,000 mls @ 50 mls/hr IV ASDIRECTED [facility]; Protocol Last Admin: 07/26/19 00:50 Dose: 50 mls/hr Lisinopril (Prinivil) 20 mg PO Q24H [facility] Metoprolol Tartrate (Lopressor) 5 mg IVPUSH Q4H PRN PRN Reason: Hypertension Nifedipine (Procardia) 10 mg PO Q6H [facility] Last Admin: 07/26/19 12:14 Dose: Not Given Oxycodone/Acetaminophen (Percocet 325-5 Mg) 1 - 2 tab PO Q6H PRN PRN Reason: Pain Last Admin: 07/26/19 13:59 Dose: 2 tab Potassium Chloride (Klor-Con M20) 40 meq PO BID [facility] Stop: 07/26/19 21:01 Last Admin: 07/26/19 09:31 Dose: 40 meq Discontinued Medications Acetaminophen (Tylenol) 650 mg PO NOW ONE Stop: 07/24/19 21:35 Last Admin: 07/24/19 21:50 Dose: 650 mg Bupivacaine HCl (Sensorcaine-Mpf 0.25%) 20 ml .ROUTE .STK-MED ONE Stop: 07/25/19 00:01 Diphenhydramine HCl (Benadryl) 25 mg IVPUSH Q6H PRN PRN Reason: pruritis Ephedrine Sulfate (Ephedrine Sulfate) 5 mg IVPUSH ASDIRECTED PRN PRN Reason: Hypotension Fentanyl (Sublimaze) 100 mcg EPIDUR Q3H PRN PRN Reason: Pain Last Admin: 07/25/19 08:34 Dose: 100 mcg Fentanyl/Bupivacaine HCl (Fentanyl/Bupivacaine/Ns 2 Mcg-0.125% 250 Ml) 2 mcg EPIDUR CONTINUOUS PRN PRN Reason: Pain Last Admin: 07/24/19 21:41 Dose: 2 mcg Hydralazine HCl (Apresoline) 5 mg IVPUSH ONETIME ONE Stop: 07/25/19 14:32 Last Admin: 07/25/19 14:41 Dose: 5 mg Hydralazine HCl (Apresoline) 20 mg IVPUSH ONETIME ONE Stop: 07/25/19 15:19 Last Admin: 07/25/19 15:27 Dose: 20 mg Hydralazine HCl (Apresoline) Confirm Administered Dose 20 mg .ROUTE .STK-MED ONE Stop: 07/25/19 19:07 Last Admin: 07/25/19 20:03 Dose: Not Given Hydralazine HCl (Apresoline) 10 mg IVPUSH ONETIME ONE Stop: 07/25/19 19:11 Last Admin: 07/25/19 19:20 Dose: 10 mg Cefazolin Sodium/Dextrose 2 gm (/ Premix) 50 mls @ 100 mls/hr IV ONETIME ONE Stop: 07/24/19 19:39 Last Admin: 07/24/19 19:50 Dose: 100 mls/hr Cefazolin Sodium/Dextrose 1 gm (/ Premix) 50 mls @ 100 mls/hr IV Q8H [facility] Last Admin: 07/25/19 10:43 Dose: 100 mls/hr Lactated Ringer's (Ringers, Lactated) 1,000 mls @ 100 mls/hr IV ASDIRECTED [facility] Last Admin: 07/25/19 02:26 Dose: 100 mls/hr Magnesium Sulfate 4 gm/ Premix 50 mls @ 450 mls/hr IV ONETIME ONE Stop: 07/24/19 19:16 Last Admin: 07/24/19 20:25 Dose: 450 mls/hr Magnesium Sulfate 2 gm/ Premix 50 mls @ 300 mls/hr IV ONETIME ONE Stop: 07/24/19 19:19 Last Admin: 07/24/19 20:45 Dose: 300 mls/hr Oxytocin/Lactated Ringer's (Pitocin In Lr 10 Units/1,000 Ml) 10 unit in 1,000 mls @ 12 mls/hr IV TITRATE [facility]; Protocol Last Titration: 07/25/19 08:33 Dose: 15 munits/min, 90 mls/hr Oxytocin/Lactated Ringer's (Pitocin In Lr 10 Units/1,000 Ml) 10 unit in 1,000 mls @ 500 mls/hr IV ASDIRECTED [facility]; Protocol Last Admin: 07/25/19 12:20 Dose: 500 mls/hr Lidocaine HCl (Xylocaine-Mpf 1%) Confirm Administered Dose 4 mls @ as directed .ROUTE .STK-MED ONE Stop: 07/25/19 18:35 Influenza Virus Vaccine (Fluzone Quad 9009-9250 Syringe) 60 mcg IM .ONCE ONE Stop: 07/26/19 13:52 Labetalol HCl (Normodyne) 20 mg IVPUSH ONETIME ONE; Protocol Stop: 07/24/19 19:11 Last Admin: 07/24/19 19:41 Dose: 4 ml Labetalol HCl (Normodyne) 40 mg IVPUSH ONETIME ONE; Protocol Stop: 07/24/19 20:20 Last Admin: 07/24/19 20:43 Dose: 8 ml Labetalol HCl (Normodyne) 20 mg IVPUSH ONETIME ONE; Protocol Stop: 07/25/19 14:00 Last Admin: 07/25/19 14:08 Dose: 20 mg Lidocaine/Epinephrine (Xylocaine-Mpf 1.5% W/Epinephrine 1:200,000) 5 ml .ROUTE .STK-MED ONE Stop: 07/25/19 00:01 Lisinopril (Prinivil) 10 mg PO DAILY [facility] Last Admin: 07/25/19 16:10 Dose: 10 mg Lisinopril (Prinivil) 10 mg PO ONETIME ONE Stop: 07/25/19 20:41 Last Admin: 07/25/19 21:18 Dose: 10 mg Measles/Mumps/Rubella Vaccine Live (M-M-R Ii Vaccine) 0.5 ml SUBCUT .ONCE ONE Stop: 07/26/19 13:50 Nalbuphine HCl (Nubain) 10 mg IVPUSH Q2H PRN PRN Reason: Pain Ondansetron HCl (Zofran) 4 mg IVPUSH Q4H PRN PRN Reason: Nausea Last Admin: 07/24/19 21:53 Dose: 4 mg Ondansetron HCl (Zofran) Confirm Administered Dose 4 mg .ROUTE .STK-MED ONE Stop: 07/24/19 21:50 Last Admin: 07/25/19 21:05 Dose: Not Given Oxycodone/Acetaminophen (Percocet 325-5 Mg) 2 tab PO ONETIME ONE Stop: 07/25/19 02:08 Last Admin: 07/25/19 02:17 Dose: 2 tab Potassium Chloride (Potassium Chloride Solution) 40 meq PO BID [facility] Stop: 07/26/19 21:01 Last Admin: 07/26/19 09:37 Dose: Not Given Sodium Chloride (Saline Flush) 10 ml FLUSH ASDIRECTED PRN PRN Reason: Keep Vein Open - Exam General: Alert, Oriented HEENT: Pupils Equal, Pupils Reactive, EOMI, Mucous Membr. Moist/[place] Neck: Supple Lungs: Clear to Auscultation, Normal Respiratory Effort Cardiovascular: Regular Rate, Regular Rhythm Extremities: Pedal Edema (scant) Neurological: No New Focal Deficit, Normal Speech Psy/Mental Status: Alert, Normal Affect, Normal Mood Consult PN Assessment/Plan Procedures: Procedures AIRWAY INHALATION TREATMENT (12/01/17) ASSAY OF LIPASE (10/24/14) ASSAY OF METANEPHRINES (10/16/14) ASSAY THYROID STIM HORMONE (02/18/14) BLOOD TYPING SEROLOGIC ABO (02/18/14) BLOOD TYPING SEROLOGIC RH(D) (02/18/14) C-REACTIVE PROTEIN (05/02/15) CHORIONIC GONADOTROPIN ASSAY (05/02/15) CHYLMD TRACH DNA AMP PROBE (05/09/15) COMPLETE CBC W/AUTO DIFF WBC (12/01/17) COMPREHEN METABOLIC PANEL (05/02/15) CT ABD & PELV W/CONTRAST (05/02/15) EMERGENCY DEPT VISIT (05/28/19) EMERGENCY DEPT VISIT (12/22/18) EMERGENCY DEPT VISIT (07/24/18) EMERGENCY DEPT VISIT (12/29/17) EMERGENCY DEPT VISIT (10/21/17) EMERGENCY DEPT VISIT (03/02/17) EMERGENCY DEPT VISIT (01/23/17) EMERGENCY DEPT VISIT (11/26/16) EMERGENCY DEPT VISIT (10/19/16) EMERGENCY DEPT VISIT (07/31/16) EMERGENCY DEPT VISIT (05/17/16) EMERGENCY DEPT VISIT (05/13/15) EMERGENCY DEPT VISIT (05/09/15) EMERGENCY DEPT VISIT (05/02/15) EMERGENCY DEPT VISIT (04/07/15) EMERGENCY DEPT VISIT (03/16/15) EMERGENCY DEPT VISIT (02/28/15) EMERGENCY DEPT VISIT (01/31/15) EMERGENCY DEPT VISIT (11/23/14) EMERGENCY DEPT VISIT (11/11/14) EMERGENCY DEPT VISIT (11/02/14) EMERGENCY DEPT VISIT (10/10/14) EMERGENCY DEPT VISIT (10/05/14) EMERGENCY DEPT VISIT (10/02/14) EMERGENCY DEPT VISIT (09/23/14) EMERGENCY DEPT VISIT (09/22/14) EMERGENCY DEPT VISIT (09/18/14) EMERGENCY DEPT VISIT (09/07/14) EMERGENCY DEPT VISIT (08/27/14) EMERGENCY DEPT VISIT (04/18/14) HEPATITIS B SURFACE AG IA (02/18/14) HIV-1ANTIBODY (02/18/14) HYDRATE IV INFUSION ADD-ON (11/26/16) LAPAROSCOPY EXCISE LESIONS (12/01/17) N.GONORRHOEAE DNA AMP PROB (05/09/15) OB US >/= 14 WKS SNGL FETUS (04/23/14) RBC ANTIBODY SCREEN (02/18/14) RENAL FUNCTION PANEL (10/16/14) ROUTINE VENIPUNCTURE (12/01/17) SMEAR WET [place] SALINE/INK (11/20/17) SYPHILIS TEST NON-TREP QUAL (02/18/14) THER/PROPH/DIAG INJ IV PUSH (05/13/15) THER/PROPH/DIAG INJ SC/IM (03/14/17) THER/PROPH/DIAG IV INF INIT (11/26/16) TRANSVAGINAL US NON-OB (11/22/17) TRICHOMONAS ASSAY W/OPTIC (11/20/17) TX/PRO/DX INJ NEW DRUG ADDON (11/26/16) TX/PRO/DX INJ SAME DRUG LAYOUT ARTIST (05/02/15) URINALYSIS AUTO W/O SCOPE (09/11/14) URINALYSIS AUTO W/SCOPE (12/29/17) URINE BACTERIA CULTURE (12/01/17) URINE CULTURE/COLONY COUNT (12/01/17) URINE TEST (12/29/17) US EXAM ABDO BACK [place] (10/16/14) US EXAM PELVIC COMPLETE (02/14/15) X-RAY EXAM L-S SPINE 2/3 VWS (03/27/17) X-RAY EXAM OF ABDOMEN (05/02/15) X-RAY EXAM OF FOOT (10/02/17) X-RAY EXAM OF KNEE 3 (08/12/15) X-RAY EXAM OF TOE(S) (09/12/17) Problem List Initiated/Reviewed/Updated: Yes My Orders Last 24 Hours: My Active Orders 07/25/19 19:30 amLODIPine [Norvasc] 5 mg PO DAILY 07/25/19 20:41 hydrALAZINE [Apresoline] 10 mg IVPUSH Q2H PRN 07/25/19 20:43 Metoprolol Tartrate [Lopressor] 5 mg IVPUSH Q4H PRN 07/26/19 09:30 Potassium Chloride [Klor-Con M20] 40 meq PO BID 07/26/19 21:00 Lisinopril [Prinivil] 20 mg PO Q24H Plan: Assessment * 29-year-old day 1 with history of chronic hypertension having severe hypertension. * Proteinuria 2+ on dipstick- possible preeclampsia; resolved * Nicotinism * Noncompliant and refusing medications Plan * patient is stable from a medical standpoint. * She should restart her home medications of Lotrel 5/20. * Give amlodipine 5 mg and lisinopril 20 mg prior to discharge and have her restart her Lotrel tomorrow. * Follow-up with her primary care provider early next week for blood pressure recheck.
[2019-07-26] MEDS ORDERED: Lisinopril 20 MG Tab PO SCH (15:30)
== END 2019-07-26 15:45 | disposition home or self-care (01) | DRG 807 ==
LOC: JD.OB 17:44 → JD.OBCHECK 17:44 → JD.OB 19:14 → OBSVTOIN 07-25 12:17 → JD.OB 07-25 13:05
PROVIDERS: ADMIT Obstetrics & Gynecology; ATTEND Obstetrics & Gynecology
PROC: 10E0XZZ Delivery of Products of Conception, External Approach (ICD-10-PCS; principal; 2019-07-25)
PROC: 3E0R3BZ Introduction of Anesthetic Agent into Spinal Canal, Percutaneous Approach (ICD-10-PCS; 2019-07-25)
PROC: 10907ZC Drainage of Amniotic Fluid, Therapeutic from Products of Conception, Via Natural or Artificial Opening (ICD-10-PCS; 2019-07-25)
DX: O13.4 Gestational [pregnancy-induced] hypertension without significant proteinuria, complicating childbirth (principal); Z37.0 Single live birth; O99.824 Streptococcus B carrier state complicating childbirth; O99.344 Other mental disorders complicating childbirth; F41.9 Anxiety disorder, unspecified; O99.334 Smoking (tobacco) complicating childbirth; F17.200 Nicotine dependence, unspecified, uncomplicated; O10.93 Unspecified pre-existing hypertension complicating the puerperium; Z3A.39 39 weeks gestation of pregnancy; Z88.0 Allergy status to penicillin; Z88.5 Allergy status to narcotic agent; Z88.6 Allergy status to analgesic agent; Z90.89 Acquired absence of other organs; Z91.14 Patient's other noncompliance with medication regimen
CPT/HCPCS: 36415; 51702; 59025; 59409; 80053; 80306; 81003; 82565; 83615; 84450; 84460; 84520; 84550; 85025; 85027; 86592; 86850; 86900; 86901; 90471; 90686; 90707; A9270-GY; J0360; J0690; J2001; J2405; J2590; J3010; J3475; J3490; J7120

== ENCOUNTER 2019-08-08 16:00 | Emergency (ER) | payer MEDICAID ==
[2019-08-08 16:15] VITALS: BP 139/98; PULSE 111
--- NOTE | 2019-08-08 16:30 | EDM.PDOC ---
ED HPI GENERAL MEDICAL PROBLEM - General Chief Complaint: ENT Problem Stated Complaint: MIGRAINE,INFECTED TOOTH Time Seen by Provider: 08/08/19 16:11 Source of Information: Reports: Patient, RN Notes Reviewed History Limitations: Reports: No Limitations - History of Present Illness INITIAL COMMENTS - FREE TEXT/NARRATIVE: Patient is a 29-year-old female who presents to the ED for the evaluation of dental pain and a headache. Patient notes she has multiple teeth that are bad, but she has one incisor on the left upper jaw that is causing her the most pain today. She states that she does have a headache, and this did start hurting after the tooth started hurting. She noted the tooth serving last Monday, and that she developed a headache on Monday. She has been using Tylenol for pain relief, but this has not been providing much relief anymore. She states that she does have an appointment on August 29 at [facility] in [place] for consultation and dental work. She states that she does have a history of migraines, and that she is working with her primary care provider regarding switching her medications. She has a follow-up appointment with her provider on August 15. Left Upper Tooth/Teeth Pain Score (Numeric/FACES): 8 Frontal Headache Pain Score (Numeric/FACES): 8 - Related Data Allergies Allergy/AdvReac Type Severity Reaction Status Date / Time ketorolac [From Toradol] Allergy Rash Verified 05/28/19 11:33 Penicillins Allergy Hives Verified 05/28/19 11:33 ibuprofen AdvReac Stomach Verified 05/28/19 11:33 Upset Home Meds: Home Meds Labetalol HCl [Labetalol] 300 mg PO BID 08/29/14 [History] Acetaminophen/HYDROcodone [[place] 325-5 MG] 1 tab PO Q6H PRN #10 tablet 08/08/19 [Rx] Clindamycin HCl 300 mg PO QID #28 capsule 08/08/19 [Rx] Hydrochlorothiazide [Microzide] 25 mg PO BID 08/08/19 [History] amLODIPine [Norvasc] 10 mg PO BID 08/08/19 [History] Past Medical History HEENT History: Reports: Other (See Below) Other HEENT History: tooth pain, dental abcess, left eye trauma, left subconjnctival hematoma, visual changes Cardiovascular History: Reports: Hypertension Other Cardiovascular History: pt states has chronic hypertension for 5 years.- gestational hypertension Respiratory History: Reports: None Gastrointestinal History: Reports: None, GERD Other Genitourinary History: CHRONIC BACTERIAL VAGINITIS [employer] History: Reports: 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, Other (See Below) Other [employer] History: bacterial vaginosis, irregular menses, laproscopy Musculoskeletal History: Reports: Other (See Below) Other Musculoskeletal History: 5th metatarsal fracture, left foot pain, low back pain Neurological History: Reports: Headaches, Chronic, Migraines Psychiatric History: Reports: None, Anxiety, Other (See Below) Endocrine/Metabolic History: Reports: None Hematologic History: Reports: None Immunologic History: Reports: None Oncologic (Cancer) History: Reports: None Dermatologic History: Reports: None - Infectious Disease History Infectious Disease History: Reports: None - Past Surgical History Head Surgeries/Procedures: Reports: None HEENT Surgical History: Reports: Tonsillectomy Cardiovascular Surgical History: Reports: None Respiratory Surgical History: Reports: None GI Surgical History: Reports: None, Other (See Below) Other GI Surgeries/Procedures: laparoscopy Female Surgical History: Reports: None Endocrine Surgical History: Reports: None Neurological Surgical History: Reports: None Musculoskeletal Surgical History: Reports: None Oncologic Surgical History: Reports: None Dermatological Surgical History: Reports: None - History Comment History Comment: patient not wanting to cooperate all the time. Refuses to open mouth and etc. Has to be told a number of times to do something. Social & Family History - Family History Family Medical History: Noncontributory Cardiac: Reports: Hypertension Endocrine/Metabolic: Reports: Diabetes, type II Oncologic: Reports: Leukemia - Tobacco Use Smoking Status *Q: Current Every Day Smoker Years of Tobacco use: 14 Packs/Tins Daily: 0.2 - Caffeine Use Caffeine Use: Reports: Soda - Recreational Drug Use Recreational Drug Use: No ED ROS ENT - Review of Systems Review Of Systems: See Below Constitutional: Denies: Fever, Chills HEENT: Reports: Dental Pain Respiratory: Denies: Shortness of Breath Cardiovascular: Denies: Chest Pain GI/Abdominal: Denies: Abdominal Pain, Diarrhea, Nausea, Vomiting Musculoskeletal: Reports: No Symptoms Skin: Reports: No Symptoms Neurological: Reports: Headache Psychiatric: Reports: No Symptoms Hematologic/Lymphatic: Reports: No Symptoms Immunologic: Reports: No Symptoms ED EXAM, ENT - Physical Exam Exam: See Below Exam Limited By: No Limitations General Appearance: Alert, WD/WN, No Apparent Distress Mouth/Throat: Normal Inspection, Normal Lips, Normal Oropharynx, Dental Pain ( Left upper incisor, there are multiple teeth in the patient's mouth, that have dental caries extending into the dentin. There is erythema at the gumline of the left upper incisor, this is the when she points to that is causing pain.) Head: Atraumatic, Normocephalic Neck: Normal Inspection Respiratory/Chest: No Respiratory Distress, Lungs Clear, Normal Breath Sounds, No Accessory Muscle Use, Chest Non-Tender Cardiovascular: Normal Peripheral Pulses, Regular Rate, Rhythm, No Murmur Neurological: Alert, Oriented, Normal Cognition, No Motor/Sensory Deficits Psychiatric: Normal Affect, Normal Mood Skin: Warm, Dry, Intact, Normal Color, No Rash Course - Vital Signs Last Recorded V/S: Last Vital Signs Temp 97.2 F 08/08/19 16:14 Pulse 111 H 08/08/19 16:14 Resp 20 08/08/19 16:14 BP 139/98 H 08/08/19 16:14 Pulse Ox 98 08/08/19 16:14 - Re-Assessments/Exams Free Text/Narrative Re-Assessment/Exam: 08/08/19 16:36 Patient presents to the ED for the evaluation of dental pain. She has multiple drug allergies, and requested clindamycin as an antibiotic versus Keflex. She has allergies to Toradol and ibuprofen, and Tylenol has not been providing much relief. I did prescribe her with [place] 5/325 for pain management, she'll be urged to keep her appointment with [facility] and get this moved up quicker if possible to do so. She is understanding of this. Departure - Departure Time of Disposition: 16:25 Disposition: Home, Self-Care 01 Condition: Fair Clinical Impression: Dental caries, Pain, dental - Discharge Information *PRESCRIPTION DRUG MONITORING PROGRAM REVIEWED*: No *COPY OF PRESCRIPTION DRUG MONITORING REPORT IN PATIENT YVONNE: No Prescriptions: Acetaminophen/HYDROcodone [[place] 325-5 MG] 1 tab PO Q6H PRN #10 tablet PRN Reason: Pain Clindamycin HCl 300 mg PO QID #28 capsule Instructions: Diet and Dental Disease Referrals: Tiffanie Fitzpatrick MD [Primary Care Provider] - Forms: ED Department Discharge Additional Instructions: You have been evaluated in the ED for your dental pain. You have been provided with a script for Clindamycin. This was electronically sent to [facility] pharmacy located near [facility]. Please take this medication as directed. (1 tab 4 times daily for 7 days or until gone). You were given a prescription for [place] 5/325, please take 1 tab every 6 hours as needed for further pain relief. This medication can be addictive. Please take as few as possible to provide pain relief. This medication may cause constipation. Please start using a stool softener like Miralax to help ensure that this does not happen. You may use hot pack/ ice packs to the affected area as tolerated in 15-20 minute intervals. You will ultimately need to find a dentist to provide definitive management of your dental pain. Please return to the ED if your symptoms change or worsen.
== END 2019-08-08 16:40 | disposition home or self-care (01) ==
LOC: JD.ED 16:00
DX: K02.9 Dental caries, unspecified (principal); I10 Essential (primary) hypertension; F17.210 Nicotine dependence, cigarettes, uncomplicated; Z88.5 Allergy status to narcotic agent; Z88.0 Allergy status to penicillin; Z88.6 Allergy status to analgesic agent; Z79.899 Other long term (current) drug therapy
CPT/HCPCS: 99283

== ENCOUNTER 2019-09-11 12:45 | Emergency (ER) | payer MEDICAID ==
[2019-09-11 13:07] VITALS: BP 152/101; PULSE 83
[2019-09-11] MEDS ORDERED: HYDROmorphone 0.5 MG/0.5 ML Syringe IVPUSH ONE (13:16)
--- NOTE | 2019-09-11 13:21 | EDM.PDOC ---
ED HPI GENERAL MEDICAL PROBLEM - General Chief Complaint: Abdominal Pain Stated Complaint: ABDOMINAL PAIN Time Seen by Provider: 09/11/19 13:10 - History of Present Illness INITIAL COMMENTS - FREE TEXT/NARRATIVE: Patient is a 29-year-old female who presents with complaints of pelvic pain and yellowish green discharge since Monday. The patient did have her tubes tied on [address] Mcconnell. She called her office prior to coming here and was unable to get an appointment. She did attempt to go to the walk-in clinic at [place] however they told her that they were unable to help her and sent her here. Patient denies any fever, chills, nausea, vomiting, diarrhea, dysuria, or flank pain. She denies any questionable sexual contacts. She states that she has not had sexual intercourse since she had her tubes tied on the . Of note she did also have a vaginal delivery on 25 July of this year. Patient does state that she does have a history of bacterial vaginosis. Treatments ORDAINED MINISTER: Reports: Other (see below) 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 ORDAINED MINISTER: teylnol es Lower Pelvic Pain Score (Numeric/FACES): 8 - Related Data Allergies Allergy/AdvReac Type Severity Reaction Status Date / Time ketorolac [From Toradol] Allergy Rash Verified 05/28/19 11:33 Penicillins Allergy Hives Verified 05/28/19 11:33 ibuprofen AdvReac Stomach Verified 05/28/19 11:33 Upset Home Meds: Home Meds Hydrochlorothiazide [Microzide] 25 mg PO BID 08/08/19 [History] amLODIPine [Norvasc] 10 mg PO BID 08/08/19 [History] Clindamycin HCl 300 mg PO TID 7 Days #21 capsule 09/11/19 [Rx] Propranolol [Inderal LA] 80 mg PO DAILY 09/11/19 [History] Past Medical History HEENT History: Reports: Other (See Below) Other HEENT History: tooth pain, dental abcess, left eye trauma, left subconjnctival hematoma, visual changes Cardiovascular History: Reports: Hypertension Other Cardiovascular History: pt states has chronic hypertension for 5 years.- gestational hypertension Respiratory History: Reports: None Gastrointestinal History: Reports: None, GERD Other Genitourinary History: CHRONIC BACTERIAL VAGINITIS [employer] History: Reports: 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, Other (See Below) Other [employer] History: bacterial vaginosis, irregular menses, laproscopy Musculoskeletal History: Reports: Other (See Below) Other Musculoskeletal History: 5th metatarsal fracture, left foot pain, low back pain Neurological History: Reports: Headaches, Chronic, Migraines Psychiatric History: Reports: None, Anxiety, Other (See Below) Endocrine/Metabolic History: Reports: None Hematologic History: Reports: None Immunologic History: Reports: None Oncologic (Cancer) History: Reports: None Dermatologic History: Reports: None - Infectious Disease History Infectious Disease History: Reports: None - Past Surgical History Head Surgeries/Procedures: Reports: None HEENT Surgical History: Reports: Tonsillectomy Cardiovascular Surgical History: Reports: None Respiratory Surgical History: Reports: None GI Surgical History: Reports: None, Other (See Below) Other GI Surgeries/Procedures: laparoscopy Female Surgical History: Reports: None, Tubal Ligation Endocrine Surgical History: Reports: None Neurological Surgical History: Reports: None Musculoskeletal Surgical History: Reports: None Oncologic Surgical History: Reports: None Dermatological Surgical History: Reports: None - History Comment History Comment: patient not wanting to cooperate all the time. Refuses to open mouth and etc. Has to be told a number of times to do something. Social & Family History - Family History Family Medical History: Noncontributory Cardiac: Reports: Hypertension Endocrine/Metabolic: Reports: Diabetes, type II Oncologic: Reports: Leukemia - Tobacco Use Smoking Status *Q: Current Every Day Smoker Years of Tobacco use: 13 Packs/Tins Daily: 0.3 - Caffeine Use Caffeine Use: Reports: Soda - Recreational Drug Use Recreational Drug Use: No ED ROS GENERAL - Review of Systems Review Of Systems: See Below Constitutional: Reports: No Symptoms. Denies: Fever, Chills, Weakness HEENT: Reports: No Symptoms Respiratory: Reports: No Symptoms Cardiovascular: Reports: No Symptoms Endocrine: Reports: No Symptoms GI/Abdominal: Reports: No Symptoms : Reports: Discharge (yellowish green), Pain. Denies: Dysuria, Flank Pain, Frequency, Hematuria, Urgency Musculoskeletal: Reports: No Symptoms Skin: Reports: No Symptoms Neurological: Reports: No Symptoms Psychiatric: Reports: No Symptoms Hematologic/Lymphatic: Reports: No Symptoms Immunologic: Reports: No Symptoms ED EXAM, RENAL/ - Physical Exam Exam: See Below Exam Limited By: No Limitations General Appearance: Alert, WD/WN, No Apparent Distress Respiratory/Chest: No Respiratory Distress, Lungs Clear, Normal Breath Sounds, No Accessory Muscle Use, Chest Non-Tender GI/Abdominal: Normal Bowel Sounds, Soft, No Organomegaly, No Distention, No Mass , Tender (mild suprapubic and LLQ tenderness) (Female) Exam: Normal External Exam, Adnexal Tenderness (mild), Cervical Discharge (yellowish white), Cervix Motion Tenderness (mild). No: Adnexal Mass , Cervical Lesions, Vaginal Bleeding, Vaginal Lesions Neurological: Alert, Oriented, Normal Cognition, No Motor/Sensory Deficits Psychiatric: Normal Affect, Normal Mood Skin Exam: Warm, Dry, Intact, Normal Color, No Rash Course - Vital Signs Last Recorded V/S: Last Vital Signs Temp 97.7 F 09/11/19 13:05 Pulse 83 09/11/19 13:05 Resp 20 09/11/19 13:05 BP 152/101 H 09/11/19 13:05 Pulse Ox 99 09/11/19 13:05 - Orders/Labs/Meds Orders: Active Orders 24 hr Category Date Time Status Pelvic Exam, Set Up [RC] ASDIRECTED Care 09/11/19 13:18 Active WET PREP [MYC] Stat Lab 09/11/19 13:48 Ordered Labs: Laboratory Tests 09/11/19 09/11/19 09/11/19 Range/Units 13:30 14:05 14:05 WBC 9.67 (3.98-10.04) K/mm3 RBC 4.35 (3.98-5.22) M/mm3 Hgb 12.4 D (11.2-15.7) gm/dl Hct 38.4 (34.1-44.9) % MCV 88.3 (79.4-94.8) fl MCH 28.5 (25.6-32.2) pg MCHC 32.3 (32.2-35.5) g/dl RDW Std Deviation 45.1 (36.4-46.3) fL Plt Count 392 H D (182-369) K/mm3 MPV 9.3 L (9.4-12.3) fl Neut % (Auto) 59.0 (34.0-71.1) % Lymph % (Auto) 32.2 (19.3-51.7) % Dawes % (Auto) 6.4 (4.7-12.5) % Eos % (Auto) 2.1 (0.7-5.8) Baso % (Auto) 0.2 (0.1-1.2) % Neut # (Auto) 5.71 (1.56-6.13) K/mm3 Lymph # (Auto) 3.11 (1.18-3.74) K/mm3 Dawes # (Auto) 0.62 H (0.24-0.36) K/mm3 Eos # (Auto) 0.20 (0.04-0.36) K/mm3 Baso # (Auto) 0.02 (0.01-0.08) K/mm3 Sodium 142 (136-145) mEq/L Potassium 4.5 D (3.5-5.1) mEq/L Chloride 109 H (98-107) mEq/L Carbon Dioxide 25 (21-32) mEq/L Anion Gap 12.5 (5-15) BUN 15 (7-18) mg/dL Creatinine 0.8 (0.55-1.02) mg/dL Est Cr Clr Drug Dosing 79.71 mL/min Estimated GFR (MDRD) > 60 (>60) mL/min BUN/Creatinine Ratio 18.8 H (14-18) Glucose 90 (74-106) mg/dL Calcium 9.2 (8.5-10.1) mg/dL Total Bilirubin 0.1 L (0.2-1.0) mg/dL AST 13 L (15-37) U/L ALT 22 (14-59) U/L Alkaline Phosphatase 103 (46-116) U/L C-Reactive Protein (<1.0) mg/dL Total Protein 7.9 (6.4-8.2) g/dl Albumin 4.0 (3.4-5.0) g/dl Globulin 3.9 gm/dL Albumin/Globulin Ratio 1.0 (1-2) HCG, Qual (NEGATIVE) Urine Color (Yellow) Urine Appearance (Clear) Urine pH (5.0-8.0) Ur Specific [place] (1.005-1.030) Urine Protein (Negative) Urine Glucose (UA) (Negative) Urine Ketones (Negative) Urine Occult Blood (Negative) Urine Nitrite (Negative) Urine Bilirubin (Negative) Urine Urobilinogen (0.2-1.0) Ur Leukocyte Esterase (Negative) C trachomatis DNA (PCR) Not detected N gonorrhoeae DNA (PCR) Not detected 09/11/19 09/11/19 09/11/19 Range/Units 14:05 14:05 14:25 WBC (3.98-10.04) K/mm3 RBC (3.98-5.22) M/mm3 Hgb (11.2-15.7) gm/dl Hct (34.1-44.9) % MCV (79.4-94.8) fl MCH (25.6-32.2) pg MCHC (32.2-35.5) g/dl RDW Std Deviation (36.4-46.3) fL Plt Count (182-369) K/mm3 MPV (9.4-12.3) fl Neut % (Auto) (34.0-71.1) % Lymph % (Auto) (19.3-51.7) % Dawes % (Auto) (4.7-12.5) % Eos % (Auto) (0.7-5.8) Baso % (Auto) (0.1-1.2) % Neut # (Auto) (1.56-6.13) K/mm3 Lymph # (Auto) (1.18-3.74) K/mm3 Dawes # (Auto) (0.24-0.36) K/mm3 Eos # (Auto) (0.04-0.36) K/mm3 Baso # (Auto) (0.01-0.08) K/mm3 Sodium (136-145) mEq/L Potassium (3.5-5.1) mEq/L Chloride (98-107) mEq/L Carbon Dioxide (21-32) mEq/L Anion Gap (5-15) BUN (7-18) mg/dL Creatinine (0.55-1.02) mg/dL Est Cr Clr Drug Dosing mL/min Estimated GFR (MDRD) (>60) mL/min BUN/Creatinine Ratio (14-18) Glucose (74-106) mg/dL Calcium (8.5-10.1) mg/dL Total Bilirubin (0.2-1.0) mg/dL AST (15-37) U/L ALT (14-59) U/L Alkaline Phosphatase (46-116) U/L C-Reactive Protein 0.6 (<1.0) mg/dL Total Protein (6.4-8.2) g/dl Albumin (3.4-5.0) g/dl Globulin gm/dL Albumin/Globulin Ratio (1-2) HCG, Qual Negative (NEGATIVE) Urine Color Yellow (Yellow) Urine Appearance Clear (Clear) Urine pH 6.5 (5.0-8.0) Ur Specific [place] 1.025 (1.005-1.030) Urine Protein Negative (Negative) Urine Glucose (UA) Negative (Negative) Urine Ketones Negative (Negative) Urine Occult Blood Negative (Negative) Urine Nitrite Negative (Negative) Urine Bilirubin Negative (Negative) Urine Urobilinogen 0.2 (0.2-1.0) Ur Leukocyte Esterase Negative (Negative) C trachomatis DNA (PCR) N gonorrhoeae DNA (PCR) Meds: Medications Discontinued Medications Generic Name Dose Route Start Last Admin Trade Name Freq PRN Reason Stop Dose Admin Hydromorphone HCl 0.5 mg 09/11/19 13:16 Dilaudid IVPUSH 09/11/19 13:17 ONETIME ONE Hydromorphone HCl 1 mg 09/11/19 14:03 09/11/19 14:12 Dilaudid IM 09/11/19 14:04 1 mg ONETIME ONE Administration Hydromorphone HCl Confirm 09/11/19 14:09 09/11/19 14:15 Dilaudid Administered 09/11/19 14:10 Not Given Dose 1 mg .ROUTE .STK-MED ONE Sodium Chloride 1,000 mls @ 999 mls/hr 09/11/19 13:30 Normal Saline IV ASDIRECTED HEVER - Re-Assessments/Exams Free Text/Narrative Re-Assessment/Exam: Patient is a 29-year-old female who presents with complaints of pelvic pain, and yellowish green vaginal discharge since Monday. The patient did have a tubal ligation done with Dr. Mcconnell on 29 August. She denies any questionable sexual contacts and states that she has not had any sexual intercourse since her tubal ligation was completed. Of note she did have a vaginal delivery on 25 July. Patient denies any fever, chills, nausea, vomiting, or diarrhea. She states that she did have what she believes is her mentioned menstrual period shortly after having her surgery. On exam patient is tender to the left lower quadrant and suprapubic area. We'll complete a CBC , CMP, CRP, wet prep, GC chlamydia, UA with micro-, and a pelvic exam. I have ordered a 1 L saline bolus as well as 0.5 mg of IV Dilaudid for pain. Free Text/Narrative Re-Assessment/Exam: 09/11/19 1400 Nursing staff notified this provider that they have been unable to obtain IV access. It is unlikely that the patient is dehydrated as she has not been vomiting and has had no diarrhea, therefore we will discontinue the IV fluids and change to Dilaudid 1 mg IM for the treatment of the pain. On pelvic exam there was a moderate amount of yellowish white discharge noted from the cervix. The patient does have mild cervical motion tenderness, as well as mild tenderness to the left adnexa. Wet prep collected. Free Text/Narrative Re-Assessment/Exam: 09/11/19 15:12 Patient's laboratory testing has been unremarkable thus far. Her wet prep is negative for bacterial vaginosis. Her WBCs are normal, CRP is normal, and urinalysis is negative for any infection. GC chlamydia is still pending. Case discussed with Dr. Viera. He recommends that we start the patient on clindamycin 300 mg 3 times daily for 7 days to cover for any possible infection related to her surgical procedure. I discussed the plan of care with the patient and she is in agreement with this. I also advised her to call and schedule an appointment with Dr. Mcconnell at her next available. We will call her with the results of her GC chlamydia when available. I did verify with her that the correct phone number is [phone]. 09/11/19 16:14 gc chlamydia testing was negative. Attempted to contact patient with results, but there was no answer. Left voicemail to return our call when available. Departure - Departure Time of Disposition: 15:13 Disposition: Home, Self-Care 01 Condition: Fair Clinical Impression: Acute vaginitis - Discharge Information *PRESCRIPTION DRUG MONITORING PROGRAM REVIEWED*: No *COPY OF PRESCRIPTION DRUG MONITORING REPORT IN PATIENT YVONNE: No Prescriptions: Clindamycin HCl 300 mg PO TID 7 Days #21 capsule Instructions: Vaginitis, [id number] Referrals: Tiffanie Fitzpatrick MD [Primary Care Provider] - Delaney Francois MD [Physician] - Forms: ED Department Discharge Additional Instructions: You were seen in the emergency department today for pelvic pain, as well as yellowish-green vaginal discharge. Your workup thus far has been unremarkable. Your blood work does not show any signs of infection or inflammation. Your urinalysis shows no signs of infection. Your wet prep also shows no signs of infection. Your test was negative. Your GC chlamydia test has not resulted yet. A prescription for clindamycin 300 mg 3 times daily for 7 days has been sent to [facility]. This medication will cover for any vaginal infection that may exist related to your surgical procedure. When your results of her GC chlamydia test are available I will call you with that information. You may use [id number] Tylenol 1000 mg every 6 hours as needed for pain. Ensure that you do not exceed 4000 mg of Tylenol within a 24-hour period. We do recommend that you contact Dr. Mcconnell's nurse and advised her of your visit to the ER today and schedule a follow-up with her at her next available appointment. - My Orders Last 24 Hours: My Active Orders 09/11/19 13:18 Pelvic Exam, Set Up [RC] ASDIRECTED 09/11/19 13:48 WET PREP [MYC] Stat - Assessment/Plan Last 24 Hours: My Active Orders 09/11/19 13:18 Pelvic Exam, Set Up [RC] ASDIRECTED 09/11/19 13:48 WET PREP [MYC] Stat
[2019-09-11] MEDS ORDERED: Sodium Chloride 0.9% 1,000 ML IV SCH (13:30)
[2019-09-11] MEDS ORDERED: HYDROmorphone 0.5 MG/0.5 ML Syringe IM ONE (14:03)
[2019-09-11] MEDS ORDERED: HYDROmorphone 0.5 MG/0.5 ML Syringe ONE (14:09)
[2019-09-11 15:28] LABS: C. TRACHOMATIS BY PCR NOT DETECTED; N. GONORRHOEAE BY PCR NOT DETECTED
== END 2019-09-11 15:35 | disposition home or self-care (01) ==
LOC: JD.ED 12:45
DX: N76.0 Acute vaginitis (principal); I10 Essential (primary) hypertension; F17.210 Nicotine dependence, cigarettes, uncomplicated; Z88.6 Allergy status to analgesic agent; Z88.0 Allergy status to penicillin; Z79.899 Other long term (current) drug therapy
CPT/HCPCS: 36415; 80053; 81003; 84703; 85025; 86140; 87210; 87491; 87591; 87808; 96372; 99284; J1170

== ENCOUNTER 2019-09-30 13:26 | Emergency (ER) | payer MEDICAID ==
[2019-09-30] MEDS ORDERED: Morphine 4 MG/ML Syringe IM ONE (13:42)
[2019-09-30] MEDS ORDERED: Promethazine 25 MG/ML SDV IM ONE (13:42)
[2019-09-30 13:43] VITALS: BP 139/85; PULSE 87
--- NOTE | 2019-09-30 13:46 | EDM.PDOC ---
ED HPI GENERAL MEDICAL PROBLEM - General Chief Complaint: Back Pain or Injury Stated Complaint: BACK PAIN Time Seen by Provider: 09/30/19 13:37 Source of Information: Reports: Patient History Limitations: Reports: No Limitations - History of Present Illness INITIAL COMMENTS - FREE TEXT/NARRATIVE: Patient's unfortunate 29-year-old obese with complaint of low back pain. Patient reports she was in normal state of health until she had a same level fall on ice and fell on her back. Patient reports she had another episode where she posterior her blood tox and patient is at low back pain ever since. Patient works the pain radiates to her bilateral blood tox is worse with range of motion ambulation improves with rest does not alleviate. Patient denies any saddle anesthesia or loss of bowel or bladder function Treatments BACK LINE COOK: Reports: Other (see below) 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 BACK LINE COOK: tylenol Bilateral Lower Back Pain Score (Numeric/FACES): 7 - Related Data Allergies Allergy/AdvReac Type Severity Reaction Status Date / Time ketorolac [From Toradol] Allergy Rash Verified 05/28/19 11:33 Penicillins Allergy Hives Verified 05/28/19 11:33 ibuprofen AdvReac Stomach Verified 05/28/19 11:33 Upset Home Meds: Home Meds Hydrochlorothiazide [Microzide] 25 mg PO BID 08/08/19 [History] amLODIPine [Norvasc] 10 mg PO BID 08/08/19 [History] Propranolol [Inderal LA] 80 mg PO DAILY 09/11/19 [History] Cyclobenzaprine [Flexeril] 10 mg PO TID PRN #12 tab 09/30/19 [Rx] Past Medical History HEENT History: Reports: Other (See Below) Other HEENT History: tooth pain, dental abcess, left eye trauma, left subconjnctival hematoma, visual changes Cardiovascular History: Reports: Hypertension Other Cardiovascular History: pt states has chronic hypertension for 5 years.- gestational hypertension Respiratory History: Reports: None Gastrointestinal History: Reports: None, GERD Other Genitourinary History: CHRONIC BACTERIAL VAGINITIS 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: Reports: 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, Other (See Below) Other 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: bacterial vaginosis, irregular menses, laproscopy Musculoskeletal History: Reports: Other (See Below) Other Musculoskeletal History: 5th metatarsal fracture, left foot pain, low back pain Neurological History: Reports: Headaches, Chronic, Migraines Psychiatric History: Reports: None, Anxiety, Other (See Below) Endocrine/Metabolic History: Reports: None Hematologic History: Reports: None Immunologic History: Reports: None Oncologic (Cancer) History: Reports: None Dermatologic History: Reports: None - Infectious Disease History Infectious Disease History: Reports: None - Past Surgical History Head Surgeries/Procedures: Reports: None HEENT Surgical History: Reports: Tonsillectomy Cardiovascular Surgical History: Reports: None Respiratory Surgical History: Reports: None GI Surgical History: Reports: None, Other (See Below) Other GI Surgeries/Procedures: laparoscopy Female Surgical History: Reports: None, Tubal Ligation Endocrine Surgical History: Reports: None Neurological Surgical History: Reports: None Musculoskeletal Surgical History: Reports: None Oncologic Surgical History: Reports: None Dermatological Surgical History: Reports: None - History Comment History Comment: patient not wanting to cooperate all the time. Refuses to open mouth and etc. Has to be told a number of times to do something. Social & Family History - Family History Family Medical History: Noncontributory Cardiac: Reports: Hypertension Endocrine/Metabolic: Reports: Diabetes, type II Oncologic: Reports: Leukemia - Tobacco Use Smoking Status *Q: Current Every Day Smoker Years of Tobacco use: 14 Packs/Tins Daily: 0.1 - Caffeine Use Caffeine Use: Reports: Soda - Recreational Drug Use Recreational Drug Use: No ED ROS GENERAL - Review of Systems Review Of Systems: See Below Constitutional: Denies: Fever, Chills Musculoskeletal: Reports: Back Pain. Denies: Neck Pain, Shoulder Pain ED EXAM,LOWER BACK PAIN/INJURY - Physical Exam Exam: See Below Exam Limited By: No Limitations General Appearance: Alert, WD/WN, Mild Distress Head: Atraumatic, Normocephalic Neck: Normal Inspection, Supple, Non-Tender, Full Range of Motion Respiratory/Chest: No Respiratory Distress, Lungs Clear, Normal Breath Sounds, No Accessory Muscle Use, Chest Non-Tender Cardiovascular: Normal Peripheral Pulses, Regular Rate, Rhythm, No Edema, No Gallop, No JVD, No Murmur, No Rub GI/Abdominal: Normal Bowel Sounds, Soft, Non-Tender, No Organomegaly, No Distention, No Abnormal Bruit, No Mass Back Exam: Other (Paraspinous muscle tenderness L4-L5 level with radiation to bilateral sciatic notch, bilateral leg lift negative, DTRs normal, negative CVA tenderness) Neurological: Alert, Normal Mood/Affect Skin Exam: Warm, Dry, No Rash Course - Vital Signs Last Recorded V/S: Last Vital Signs Temp 97.4 F 09/30/19 13:42 Pulse 87 09/30/19 13:42 Resp 20 09/30/19 13:42 BP 139/85 09/30/19 13:42 Pulse Ox 98 09/30/19 13:42 - Orders/Labs/Meds Orders: Active Orders 24 hr Category Date Time Status Lumbar Spine 2 or 3V [CR] Stat Exams 09/30/19 13:42 Taken Labs: Laboratory Tests 09/30/19 Range/Units 14:00 Urine HCG, Qual Negative (NEGATIVE) Meds: Medications Discontinued Medications Generic Name Dose Route Start Last Admin Trade Name Freq PRN Reason Stop Dose Admin Morphine Sulfate 4 mg 09/30/19 13:42 09/30/19 14:01 Morphine IM 09/30/19 13:43 4 mg ONETIME ONE Administration Promethazine HCl 25 mg 09/30/19 13:42 09/30/19 14:01 Phenergan IM 09/30/19 13:43 25 mg ONETIME ONE Administration - Re-Assessments/Exams Free Text/Narrative Re-Assessment/Exam: 09/30/19 15:13 L-spine interpreted by me, in NAD Departure - Departure Time of Disposition: 15:14 Disposition: Home, Self-Care 01 Clinical Impression: Lumbar strain Qualifiers: Encounter type: initial encounter Qualified Code(s): S39.012A - Strain of muscle, fascia and tendon of lower back, initial encounter - Discharge Information *PRESCRIPTION DRUG MONITORING PROGRAM REVIEWED*: Yes *COPY OF PRESCRIPTION DRUG MONITORING REPORT IN PATIENT YVONNE: No Prescriptions: Cyclobenzaprine [Flexeril] 10 mg PO TID PRN #12 tab PRN Reason: Pain Instructions: Lumbosacral Strain, Low Back Sprain Referrals: Tiffanie Fitzpatrick MD [Primary Care Provider] - Forms: ED Department Discharge Additional Instructions: Home, rest, heating pad 20 minutes at a time 3-4 times a day, no lifting greater than 10 pounds for one week, return as needed for worsening condition Sepsis Event Note - Evaluation Sepsis Screening Result: No Definite Risk - Focused Exam Vital Signs: Vital Signs Temp Pulse Resp BP Pulse Ox 09/30/19 13:42 97.4 F 87 20 139/85 98 Date Exam was Performed: 09/30/19 Time Exam was Performed: 15:13 - My Orders Last 24 Hours: My Active Orders 09/30/19 13:42 Lumbar Spine 2 or 3V [CR] Stat - Assessment/Plan Last 24 Hours: My Active Orders 09/30/19 13:42 Lumbar Spine 2 or 3V [CR] Stat
--- NOTE | 2019-09-30 15:17 | CR ---
Lumbar spine: AP and lateral views of lumbar spine were obtained. Comparison: Previous lumbar spine study of 03/27/17. Vertebral body heights and disc spaces are maintained. Pedicles are intact. Transverse and spinous processes are intact. No subluxation or fracture is seen. Impression: 1. Nothing acute is seen on two-view lumbar spine study. 2. No change is seen from previous exam. Diagnostic code #1 This report was dictated in Mountain Standard Time
== END 2019-09-30 15:32 | disposition home or self-care (01) ==
LOC: JD.ED 13:26
DX: S39.012A Strain of muscle, fascia and tendon of lower back, initial encounter (principal); I10 Essential (primary) hypertension; F17.210 Nicotine dependence, cigarettes, uncomplicated; Z88.6 Allergy status to analgesic agent; Z88.0 Allergy status to penicillin; Z79.899 Other long term (current) drug therapy; W00.0XXA Fall on same level due to ice and snow, initial encounter
CPT/HCPCS: 72100; 81025; 96372; 99283; J2270; J2550

== ENCOUNTER 2019-11-26 18:20 | Emergency (ER) | payer MEDICAID ==
[2019-11-26 18:59] VITALS: BP 159/108; PULSE 98
[2019-11-26] MEDS ORDERED: Clindamycin HCl 150 MG Cap PO ONE (19:50)
[2019-11-26] MEDS ORDERED: Acetaminophen/HYDROcodone 325-5 MG Tab PO ONE (19:51)
--- NOTE | 2019-11-26 19:54 | EDM.PDOC ---
ED HPI GENERAL MEDICAL PROBLEM - General Chief Complaint: ENT Problem Stated Complaint: INFECTED TOOTH Time Seen by Provider: 11/26/19 19:25 Source of Information: Reports: Patient, RN Notes Reviewed History Limitations: Reports: No Limitations - History of Present Illness INITIAL COMMENTS - FREE TEXT/NARRATIVE: Patient is a 29-year-old female who presents to the ED for a dental complaint. The patient notes that she has a tooth in her left front upper jaw that is causing her issues. On December 12 she is getting all of the remaining teeth in her upper jaw are removed, in preparation for dental implants. The dentist was consulted regarding her tooth pain, and was worried about infection so he sent her here for further management. There is some redness and swelling at the gumline near the tooth that she is complaining about. She is not having any fevers, or any pain that shoots up into the face or down the neck or to the ear. She states that the pain started last night. She states that eating cold things helps, but eating anything that's hot hurts it. Patient took some Tylenol at home and this did not help much. Left Upper Tooth/Teeth Pain Score (Numeric/FACES): 8 - Related Data Allergies Allergy/AdvReac Type Severity Reaction Status Date / Time ketorolac [From Toradol] Allergy Rash Verified 05/28/19 11:33 Penicillins Allergy Hives Verified 05/28/19 11:33 ibuprofen AdvReac Stomach Verified 05/28/19 11:33 Upset Home Meds: Home Meds amLODIPine [Norvasc] 10 mg PO BID 08/08/19 [History] hydroCHLOROthiazide [Microzide] 25 mg PO BID 08/08/19 [History] Propranolol [Inderal LA] 80 mg PO DAILY 09/11/19 [History] Acetaminophen/HYDROcodone [Leeton 325-5 MG] 1 tab PO Q6H PRN #12 tablet 11/26/19 [Rx] Clindamycin HCl 300 mg PO QID #28 capsule 11/26/19 [Rx] Past Medical History HEENT History: Reports: Other (See Below) Other HEENT History: tooth pain, dental abcess, left eye trauma, left subconjnctival hematoma, visual changes Cardiovascular History: Reports: Hypertension Other Cardiovascular History: pt states has chronic hypertension for 5 years.- gestational hypertension Gastrointestinal History: Reports: GERD Genitourinary History: Reports: Other (See Below) Other Genitourinary History: CHRONIC 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: 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, Other (See Below) Other FIRE ALARM MECHANIC History: bacterial vaginosis, irregular menses, laproscopy Musculoskeletal History: Reports: Other (See Below) Other Musculoskeletal History: 5th metatarsal fracture, left foot pain, low back pain Neurological History: Reports: Headaches, Chronic, Migraines Psychiatric History: Reports: Anxiety, Other (See Below) - Past Surgical History HEENT Surgical History: Reports: Tonsillectomy GI Surgical History: Reports: Other (See Below) Other GI Surgeries/Procedures: laparoscopy Female Surgical History: Reports: Tubal Ligation - History Comment History Comment: patient not wanting to cooperate all the time. Refuses to open mouth and etc. Has to be told a number of times to do something. Social & Family History - Family History Family Medical History: Noncontributory Cardiac: Reports: Hypertension Endocrine/Metabolic: Reports: Diabetes, type II Oncologic: Reports: Leukemia - Tobacco Use Smoking Status *Q: Never Smoker - Caffeine Use Caffeine Use: Reports: Soda - Recreational Drug Use Recreational Drug Use: No ED ROS ENT - Review of Systems Review Of Systems: See Below Constitutional: Denies: Fever, Chills HEENT: Reports: Dental Pain. Denies: Ear Pain, Throat Pain Respiratory: Denies: Shortness of Breath Cardiovascular: Denies: Chest Pain GI/Abdominal: Denies: Abdominal Pain, Nausea, Vomiting Neurological: Denies: Headache ED EXAM, ENT - Physical Exam Exam: See Below Exam Limited By: No Limitations General Appearance: Alert, WD/WN, No Apparent Distress Eye Exam: Bilateral Eye: EOMI, Normal Inspection, PERRL Nose: Normal Inspection Mouth/Throat: Normal Inspection, Normal Gums, Normal Lips, Normal Oropharynx, Dental Pain (Left upper jaw near the incisor. Dentition is in really poor repair on both the upper and lower jaw. There is some redness at the gumline by the tooth that is causing her issues.) Head: Atraumatic, Normocephalic Respiratory/Chest: No Respiratory Distress, Lungs Clear, Normal Breath Sounds, No Accessory Muscle Use, Chest Non-Tender Cardiovascular: Normal Peripheral Pulses, Regular Rate, Rhythm, No Murmur Extremities: Normal Inspection, Normal Capillary Refill Neurological: Alert, Oriented, Normal Cognition, No Motor/Sensory Deficits Psychiatric: Normal Affect, Normal Mood Skin: Warm, Dry, Intact, Normal Color, No Rash Course - Vital Signs Last Recorded V/S: Last Vital Signs Temp 98.2 F 11/26/19 18:54 Pulse 98 11/26/19 18:54 Resp 16 11/26/19 18:54 BP 159/108 H 11/26/19 18:54 Pulse Ox 99 11/26/19 18:54 - Orders/Labs/Meds Meds: Medications Discontinued Medications Generic Name Dose Route Start Last Admin Trade Name Latha PRN Reason Stop Dose Admin Hydrocodone Bitart/Acetaminophen 1 tab 11/26/19 19:51 Leeton 325-5 Mg PO 11/26/19 19:52 ONETIME ONE Clindamycin HCl 600 mg 11/26/19 19:50 Cleocin PO 11/26/19 19:51 ONETIME ONE - Re-Assessments/Exams Free Text/Narrative Re-Assessment/Exam: 11/26/19 20:05 Patient presents to the ED for dental pain. As she has dental appointment scheduled to have all of these teeth taken out I will provide with antibiotics and some pain meds to get her through at least a few days. Departure - Departure Time of Disposition: 20:06 Disposition: Home, Self-Care 01 Condition: Fair Clinical Impression: Dental caries extending into dentin - Discharge Information *PRESCRIPTION DRUG MONITORING PROGRAM REVIEWED*: Yes *COPY OF PRESCRIPTION DRUG MONITORING REPORT IN PATIENT YVONNE: No Prescriptions: Acetaminophen/HYDROcodone [Leeton 325-5 MG] 1 tab PO Q6H PRN #12 tablet PRN Reason: Pain Clindamycin HCl 300 mg PO QID #28 capsule Instructions: Diet and Dental Disease Referrals: Tiffanie Fitzpatrick MD [Primary Care Provider] - Forms: ED Department Discharge Additional Instructions: You have been evaluated in the ED for your dental pain. You have been provided with a script for Clindamycin. This was electronically sent to [facility] located near [facility]. Please take this medication as directed. (1 tab four times daily for 7 days or until gone). This antibiotic can cause diarrhea, recommend that you start a probiotic while taking this medication. You were given a prescription for hydrocodone/acetaminophen 5/325. Please take 1 tab every 6 hours as needed for further pain relief. You may use hot pack/ ice packs to the affected area as tolerated in 15-20 minute intervals. Please return to the ED if your symptoms change or worsen. Sepsis Event Note - Evaluation Sepsis Screening Result: No Definite Risk - Focused Exam Vital Signs: Vital Signs Temp Pulse Resp BP Pulse Ox 11/26/19 18:54 98.2 F 98 16 159/108 H 99 Date Exam was Performed: 11/26/19 Time Exam was Performed: 19:59
== END 2019-11-26 20:17 | disposition home or self-care (01) ==
LOC: JD.ED 18:20
DX: K02.9 Dental caries, unspecified (principal); K00.7 Teething syndrome; I10 Essential (primary) hypertension; Z98.890 Other specified postprocedural states; Z88.6 Allergy status to analgesic agent; Z88.0 Allergy status to penicillin; Z98.51 Tubal ligation status
CPT/HCPCS: 99283; A9270

== ENCOUNTER 2020-09-06 11:00 | Emergency (ER) | payer MEDICAID ==
[2020-09-06 11:15] VITALS: BP 146/79; PULSE 97
[2020-09-06] MEDS ORDERED: Sodium Chloride 0.9% 10 ML Syringe FLUSH PRN (11:34)
[2020-09-06] MEDS ORDERED: Iopamidol 612 MG/ML 100 ML Bottle IVPUSH ONE (11:34)
--- NOTE | 2020-09-06 12:14 | EDM.PDOC ---
ED HPI GENERAL MEDICAL PROBLEM - General Chief Complaint: Abdominal Pain Stated Complaint: ABDOMINAL PAIN Time Seen by Provider: 09/06/20 11:07 Source of Information: Reports: Patient, RN Notes Reviewed History Limitations: Reports: No Limitations - History of Present Illness INITIAL COMMENTS - FREE TEXT/NARRATIVE: Patient is a 30-year-old female presenting to the emergency department with complaints of bilateral lower abdominal pain. This has been occurring since Monday. Patient states that she had a total hysterectomy completed on 14 August due to endometriosis on her uterus. She verbalized that endometriosis was not visualized anywhere else in the abdominal cavity. She states that she was doing quite well, however since this last Monday, she has been having pain and tenderness to palpation on the bilateral lower aspects of her abdomen. She has had no fever, chills, nausea, vomiting, or diarrhea. She denies any abnormal vaginal discharge or bleeding. She has somewhat increased her activity and that she is now climbing stairs where previously she was not. She is not doing any heavy lifting, pushing, or pulling. She has not been able to contact her surgeon as it is the weekend. States that she just wants to make sure that there is "nothing major "going on. Bilateral Lower Abdomen Pain Score (Numeric/FACES): 7 - Related Data Allergies Allergy/AdvReac Type Severity Reaction Status Date / Time ketorolac [From Toradol] Allergy Rash Verified 11/26/19 20:15 Penicillins Allergy Hives Verified 11/26/19 20:15 ibuprofen AdvReac Stomach Verified 11/26/19 20:15 Upset Home Meds: Home Meds hydroCHLOROthiazide [Microzide] 25 mg PO BID 08/08/19 [History] Propranolol [Inderal LA] 80 mg PO DAILY 09/11/19 [History] Acetaminophen/HYDROcodone [[place] 325-5 MG] 1 tab PO Q4H PRN #10 tablet 09/06/20 [Rx] lisinopriL [Lisinopril] 1 tab PO DAILY 09/06/20 [History] Past Medical History HEENT History: Reports: Other (See Below) Other HEENT History: tooth pain, dental abcess, left eye trauma, left subconjnctival hematoma, visual changes Cardiovascular History: Reports: Hypertension Other Cardiovascular History: pt states has chronic hypertension for 5 years.- gestational hypertension Respiratory History: Reports: None Gastrointestinal History: Reports: GERD Genitourinary History: Reports: Other (See Below) Other Genitourinary History: CHRONIC BACTERIAL VAGINITIS [employer] History: Reports: 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, Other (See Below) Other [employer] History: bacterial vaginosis, irregular menses, laproscopy Musculoskeletal History: Reports: Other (See Below) Other Musculoskeletal History: 5th metatarsal fracture, left foot pain, low back pain Neurological History: Reports: Headaches, Chronic, Migraines Psychiatric History: Reports: Anxiety, Other (See Below) Endocrine/Metabolic History: Reports: None Hematologic History: Reports: None Immunologic History: Reports: None Oncologic (Cancer) History: Reports: None Dermatologic History: Reports: None - Infectious Disease History Infectious Disease History: Reports: None - Past Surgical History Head Surgeries/Procedures: Reports: None HEENT Surgical History: Reports: Tonsillectomy Cardiovascular Surgical History: Reports: None Respiratory Surgical History: Reports: None GI Surgical History: Reports: Other (See Below) Other GI Surgeries/Procedures: laparoscopy Female Surgical History: Reports: Hysterectomy, Tubal Ligation Endocrine Surgical History: Reports: None Neurological Surgical History: Reports: None Musculoskeletal Surgical History: Reports: None Oncologic Surgical History: Reports: None Dermatological Surgical History: Reports: None - History Comment History Comment: patient not wanting to cooperate all the time. Refuses to open mouth and etc. Has to be told a number of times to do something. Social & Family History - Family History Family Medical History: No Pertinent Family History Cardiac: Reports: Hypertension Endocrine/Metabolic: Reports: Diabetes, type II Oncologic: Reports: Leukemia - Tobacco Use Tobacco Use Status *Q: Current Every Day Tobacco User Years of Tobacco use: 10 Packs/Tins Daily: 1 - Caffeine Use Caffeine Use: Reports: Soda - Recreational Drug Use Recreational Drug Use: No ED ROS GENERAL - Review of Systems Review Of Systems: See Below Constitutional: Reports: No Symptoms. Denies: Fever, Chills, Weakness HEENT: Reports: No Symptoms Respiratory: Reports: No Symptoms Cardiovascular: Reports: No Symptoms Endocrine: Reports: No Symptoms GI/Abdominal: Reports: Abdominal Pain (Bilateral lower quadrants). Denies: Black Stool, Diarrhea, Vomiting : Reports: No Symptoms. Denies: Discharge, Dysuria, Frequency Musculoskeletal: Reports: No Symptoms Skin: Reports: No Symptoms Neurological: Reports: No Symptoms Psychiatric: Reports: No Symptoms Hematologic/Lymphatic: Reports: No Symptoms Immunologic: Reports: No Symptoms ED EXAM, GI/ABD - Physical Exam Exam: See Below General Appearance: Alert, WD/WN, No Apparent Distress Respiratory/Chest: No Respiratory Distress, Lungs Clear, Normal Breath Sounds, No Accessory Muscle Use, Chest Non-Tender Cardiovascular: Normal Peripheral Pulses, Regular Rate, Rhythm, No Edema, No Gallop, No JVD, No Murmur, No Rub GI/Abdominal Exam: Normal Bowel Sounds, Soft, No Organomegaly, No Distention, No Abnormal Bruit, No Mass, Pelvis Stable, Tender (Mild right lower quadrant and left lower quadrant tenderness. 5 well-healed laparoscopic incisions noted throughout the abdomen.) Neurological: Alert, Oriented, CN II-XII Intact, Normal Cognition, Normal Gait, Normal Reflexes, No Motor/Sensory Deficits Psychiatric: Normal Affect, Normal Mood Skin Exam: Warm, Dry, Intact, Normal Color, No Rash Course - Vital Signs Last Recorded V/S: Last Vital Signs Temp 98.5 F 09/06/20 11:08 Pulse 97 09/06/20 11:08 Resp 18 09/06/20 11:08 BP 146/79 H 09/06/20 11:08 Pulse Ox 97 09/06/20 11:08 - Orders/Labs/Meds Orders: Active Orders 24 hr Category Date Time Status Abdomen Pelvis w Cont [CT] Stat Exams 09/06/20 11:27 Ordered Sodium Chloride 0.9% [Saline Flush] Med 09/06/20 11:34 Active 10 ml FLUSH ONETIME PRN Medication Orders Sodium Chloride (Saline Flush) 10 ml FLUSH ONETIME PRN PRN Reason: Keep Vein Open Last Admin: 09/06/20 12:06 Dose: 10 ml Documented by: KIM Labs: Laboratory Tests 09/06/20 09/06/20 Range/Units 11:45 11:45 WBC 9.14 (3.98-10.04) K/mm3 RBC 4.37 (3.98-5.22) M/mm3 Hgb 12.6 (11.2-15.7) gm/dl Hct 39.1 (34.1-44.9) % MCV 89.5 (79.4-94.8) fl MCH 28.8 (25.6-32.2) pg MCHC 32.2 (32.2-35.5) g/dl RDW Std Deviation 50.9 H (36.4-46.3) fL Plt Count 372 H (182-369) K/mm3 MPV 9.1 L (9.4-12.3) fl Neut % (Auto) 59.5 (34.0-71.1) % Lymph % (Auto) 33.8 (19.3-51.7) % [place] % (Auto) 5.5 (4.7-12.5) % Eos % (Auto) 1.0 (0.7-5.8) Baso % (Auto) 0.1 (0.1-1.2) % Neut # (Auto) 5.44 (1.56-6.13) K/mm3 Lymph # (Auto) 3.09 (1.18-3.74) K/mm3 [place] # (Auto) 0.50 H (0.24-0.36) K/mm3 Eos # (Auto) 0.09 (0.04-0.36) K/mm3 Baso # (Auto) 0.01 (0.01-0.08) K/mm3 Sodium 141 (136-145) mEq/L Potassium 3.8 (3.5-5.1) mEq/L Chloride 105 (98-107) mEq/L Carbon Dioxide 26 (21-32) mEq/L Anion Gap 13.8 (5-15) BUN 14 (7-18) mg/dL Creatinine 1.0 (0.55-1.02) mg/dL Est Cr Clr Drug Dosing 60.16 mL/min Estimated GFR (MDRD) > 60 (>60) mL/min BUN/Creatinine Ratio 14.0 (14-18) Glucose 100 (74-106) mg/dL Calcium 9.4 (8.5-10.1) mg/dL Total Bilirubin 0.3 (0.2-1.0) mg/dL AST 10 L (15-37) U/L ALT 19 (14-59) U/L Alkaline Phosphatase 80 (46-116) U/L C-Reactive Protein 2.0 H* (<1.0) mg/dL Total Protein 7.5 (6.4-8.2) g/dl Albumin 3.9 (3.4-5.0) g/dl Globulin 3.6 gm/dL Albumin/Globulin Ratio 1.1 (1-2) Meds: Medications Generic Name Dose Route Start Last Admin Trade Name Freq PRN Reason Stop Dose Admin Sodium Chloride 10 ml 09/06/20 11:34 09/06/20 12:06 Saline Flush FLUSH 10 ml ONETIME PRN Administration Keep Vein Open Discontinued Medications Generic Name Dose Route Start Last Admin Trade Name Freq PRN Reason Stop Dose Admin Iopamidol 100 ml 09/06/20 11:34 09/06/20 12:06 Isovue-300 (61%) IVPUSH 09/06/20 11:35 100 ml ONETIME ONE Administration - Re-Assessments/Exams Free Text/Narrative Re-Assessment/Exam: 09/06/20 12:38 Patient's work-up was grossly unremarkable. Hematology was normal. CT scan of the abdomen pelvis with IV contrast only showed post hysterectomy with no acute abdominal or pelvic findings. Discussed that her pain could be related to abdominal muscles trauma and recent increased use. I will write a prescription for [place] for pain. Recommend she contact her surgeon tomorrow morning to let her know of the pain and today's findings. Discharge instructions as documented. Departure - Departure Time of Disposition: 12:39 Disposition: Home, Self-Care 01 Condition: Good Clinical Impression: Postoperative pain - Discharge Information *PRESCRIPTION DRUG MONITORING PROGRAM REVIEWED*: Yes *COPY OF PRESCRIPTION DRUG MONITORING REPORT IN PATIENT YVONNE: No Prescriptions: Acetaminophen/HYDROcodone [[place] 325-5 MG] 1 tab PO Q4H PRN #10 tablet PRN Reason: Pain Instructions: Abdominal Pain, Adult, [id number] Referrals: Basilia Delacruz NP [Primary Care Provider] - Forms: ED Department Discharge Additional Instructions: You were seen in the emergency department today for bilateral lower abdominal pain approximately 3 weeks postop from hysterectomy. Work-up included blood work and a CT scan of your abdomen pelvis. Your work-up was found to be normal. As we discussed, it is possible your pain is related to the muscles in your abdomen. Recommend that you take Tylenol routinely. A prescription for [place] for pain has also been sent to [facility]. Use this as needed for pain not relieved by Tylenol. Please be aware that there is 325 mg of Tylenol in the [place] and that you should not exceed a total of 4000 mg from all sources in 1 given day. In the emergency department, he did receive 650 mg of Tylenol as well as 1 [place] which is a total of 975 mg of Tylenol. Recommend that you follow-up with your surgeon tomorrow. Return to ER as needed. Sepsis Event Note (ED) - Evaluation Sepsis Screening Result: No Definite Risk - Focused Exam Vital Signs: Vital Signs Temp Pulse Resp BP Pulse Ox 09/06/20 11:08 98.5 F 97 18 146/79 H 97 - My Orders Last 24 Hours: My Active Orders 09/06/20 11:27 Abdomen Pelvis w Cont [CT] Stat 09/06/20 11:34 Sodium Chloride 0.9% [Saline Flush] 10 ml FLUSH ONETIME PRN - Assessment/Plan Last 24 Hours: My Active Orders 09/06/20 11:27 Abdomen Pelvis w Cont [CT] Stat 09/06/20 11:34 Sodium Chloride 0.9% [Saline Flush] 10 ml FLUSH ONETIME PRN
[2020-09-06] MEDS ORDERED: Acetaminophen 325 MG Tab PO ONE (12:41)
[2020-09-06] MEDS ORDERED: Acetaminophen/HYDROcodone 325-5 MG Tab PO ONE (12:41)
--- NOTE | 2020-09-07 10:01 | CT ---
PROCEDURE INFORMATION: Exam: CT Abdomen And Pelvis With Contrast Exam date and time: 09/06/2020 11:50 AM Age: 30 years old Clinical indication: Abdominal pain; Localized; Lower; Prior surgery; Surgery date: <1 month; Surgery type: Hysterectomy, 3 weeks ago. Left ovaries TECHNIQUE: Imaging protocol: Computed tomography of the abdomen and pelvis with intravenous contrast. Contrast material: ISOVUE 300; Contrast volume: 100 ml; Contrast route: INTRAVENOUS (IV); COMPARISON: CT Abdomen Pelvis w Cont 05/02/2015 10:23 PM FINDINGS: Lungs: Unremarkable.No mass or nodule. Liver: Normal. No mass. Gallbladder and bile ducts: Normal. No calcified stones. No ductal dilation. Pancreas: Normal. No ductal dilation. Spleen: Normal. No splenomegaly. Adrenal glands: Normal. No mass. Kidneys and ureters: Subcentimeter hypodensity in the right kidney too small to characterize. Stomach and bowel: "Apparent" mural thickening in the transverse colon most likely due to under distension. Appendix: No evidence of appendicitis. Intraperitoneal space: Unremarkable. No free air. No significant fluid collection. Vasculature: Unremarkable. No abdominal aortic aneurysm. Lymph nodes: Unremarkable. No enlarged lymph nodes. Urinary bladder: Unremarkable as visualized. Reproductive: Post hysterectomy. Bones/joints: Unremarkable. No acute fracture. Soft tissues: Unremarkable. IMPRESSION: 1. Post hysterectomy. 2. No acute abdominal or pelvic findings. COMMENTS: Consistent with the [employer]'s Incidental Findings Committee white paper (J Am Mariella Radiol 2018): Any incidental renal lesion less than 1 cm or classified as too small to characterize, or any incidental cystic renal lesion characterized as simple-appearing, is likely benign. No follow-up imaging is recommended for these lesions per consensus recommendations based on imaging criteria. Thank you for allowing us to participate in the care of your patient. Dictated and Authenticated by: Orlando Jensen MD 09/06/2020 1:33 PM Central Time ([place] & [place]) CHARMAINE
== END 2020-09-06 12:56 | disposition home or self-care (01) ==
LOC: JD.ED 11:00
DX: G89.18 Other acute postprocedural pain (principal); I10 Essential (primary) hypertension; F17.210 Nicotine dependence, cigarettes, uncomplicated; Z88.6 Allergy status to analgesic agent; Z88.0 Allergy status to penicillin; Z79.899 Other long term (current) drug therapy
CPT/HCPCS: 36415; 74177; 80053; 85025; 86140; 99284; A9270; Q9967

== ENCOUNTER 2020-11-30 17:28 | Emergency (ER) | payer MEDICAID ==
[2020-11-30 17:36] VITALS: BP 157/109; PULSE 105
[2020-11-30] MEDS ORDERED: cefTRIAXone 1 GM, Lidocaine 1% 2.1 ML IM ONE ×2 (17:45)
--- NOTE | 2020-11-30 17:54 | EDM.PDOC ---
ED HPI GENERAL MEDICAL PROBLEM - General Chief Complaint: ENT Problem Stated Complaint: TOOTH PAIN Time Seen by Provider: 11/30/20 17:33 Source of Information: Reports: Patient History Limitations: Reports: No Limitations - History of Present Illness INITIAL COMMENTS - FREE TEXT/NARRATIVE: The patient presents with right upper dental pain. This started over a week ago. She was seen by her dentist on Monday and started on clindamycin and given 5 norco. She says that pain is not better. She has no fever or chills. She has very bad teeth. Multiple teeth are missing and the ones she has left are broken or worn down. The one that hurts is in the right upper jaw line and it is capped. She will see her dentist later in the week. Onset: Gradual Duration: Week(s): Location: Reports: Face Quality: Reports: Sharp Severity: Severe Improves with: Reports: Immobilization Worsens with: Reports: Movement Associated Symptoms: Reports: No Other Symptoms Right Upper Tooth/Teeth Pain Score (Numeric/FACES): 9 - Related Data Allergies Allergy/AdvReac Type Severity Reaction Status Date / Time ketorolac [From Toradol] Allergy Rash Verified 11/30/20 17:36 Penicillins Allergy Hives Verified 11/30/20 17:36 ibuprofen AdvReac Stomach Verified 11/30/20 17:36 Upset Home Meds: Home Meds hydroCHLOROthiazide [Microzide] 25 mg PO BID 08/08/19 [History] lisinopriL [Lisinopril] 1 tab PO DAILY 09/06/20 [History] Amitriptyline [Elavil] 10 mg PO BEDTIME 11/30/20 [History] Clindamycin HCl 300 mg PO TID 11/30/20 [History] Hydrocodone/Acetaminophen [Hydrocodone-Acetamin 5-325 mg] 1 - 2 each PO Q6HR PRN #15 tablet 11/30/20 [Rx] Past Medical History HEENT History: Reports: Other (See Below) Other HEENT History: tooth pain, dental abcess, left eye trauma, left subconjnctival hematoma, visual changes Cardiovascular History: Reports: Hypertension Other Cardiovascular History: pt states has chronic hypertension for 5 years.- gestational hypertension Respiratory History: Reports: None Gastrointestinal History: Reports: GERD Genitourinary History: Reports: Other (See Below) Other Genitourinary History: CHRONIC BACTERIAL VAGINITIS [place] History: Reports: 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, Other (See Below) Other [place] History: bacterial vaginosis, irregular menses, laproscopy Musculoskeletal History: Reports: Other (See Below) Other Musculoskeletal History: 5th metatarsal fracture, left foot pain, low back pain Neurological History: Reports: Headaches, Chronic, Migraines Psychiatric History: Reports: Anxiety, Other (See Below) Endocrine/Metabolic History: Reports: None Hematologic History: Reports: None Immunologic History: Reports: None Oncologic (Cancer) History: Reports: None Dermatologic History: Reports: None - Infectious Disease History Infectious Disease History: Reports: None - Past Surgical History Head Surgeries/Procedures: Reports: None HEENT Surgical History: Reports: Tonsillectomy Cardiovascular Surgical History: Reports: None Respiratory Surgical History: Reports: None GI Surgical History: Reports: Other (See Below) Other GI Surgeries/Procedures: laparoscopy Female Surgical History: Reports: Hysterectomy, Tubal Ligation Endocrine Surgical History: Reports: None Neurological Surgical History: Reports: None Musculoskeletal Surgical History: Reports: None Oncologic Surgical History: Reports: None Dermatological Surgical History: Reports: None - History Comment History Comment: patient not wanting to cooperate all the time. Refuses to open mouth and etc. Has to be told a number of times to do something. Social & Family History - Family History Family Medical History: No Pertinent Family History Cardiac: Reports: Hypertension Endocrine/Metabolic: Reports: Diabetes, type II Oncologic: Reports: Leukemia - Tobacco Use Tobacco Use Status *Q: Current Every Day Tobacco User Years of Tobacco use: 9 Packs/Tins Daily: 0.5 - Caffeine Use Caffeine Use: Reports: Soda - Recreational Drug Use Recreational Drug Use: No ED ROS ENT - Review of Systems Review Of Systems: See Below Constitutional: Reports: No Symptoms HEENT: Reports: Dental Pain Respiratory: Reports: No Symptoms Cardiovascular: Reports: No Symptoms Endocrine: Reports: No Symptoms GI/Abdominal: Reports: No Symptoms : Reports: No Symptoms Musculoskeletal: Reports: No Symptoms ED EXAM, ENT - Physical Exam Exam: See Below Exam Limited By: No Limitations General Appearance: Alert, No Apparent Distress Ears: Normal External Exam Nose: Normal Inspection Mouth/Throat: Other (Multiple missing teeth and other teeth are fractured or worn down. She has pain upon palpation with some edema and erythema to the right upper jaw line and a caped premolar.) Neck: Normal Inspection, Supple, Non-Tender Course - Vital Signs Last Recorded V/S: Last Vital Signs Temp 97.5 F 11/30/20 17:32 Pulse 105 H 11/30/20 17:32 Resp 16 11/30/20 17:32 BP 157/109 H 11/30/20 17:32 Pulse Ox 100 11/30/20 17:32 - Orders/Labs/Meds Orders: Active Orders 24 hr Category Date Time Status cefTRIAXone 1 GM withLidocaine 1% 2.1 ML IM Onetime Med 11/30/20 17:45 Ordered cefTRIAXone [Rocephin] 1 gm Lidocaine 1% [Xylocaine 1%] 2.1 ml IM ONETIME Medication Orders Ceftriaxone Sodium 1 gm/ (Lidocaine HCl 2.1 ml) 0 gm IM ONETIME ONE Stop: 11/30/20 17:46 Meds: Medications Generic Name Dose Route Start Last Admin Trade Name Freq PRN Reason Stop Dose Admin Ceftriaxone Sodium 1 gm/ 0 gm 11/30/20 17:45 Lidocaine HCl 2.1 ml IM 11/30/20 17:46 ONETIME ONE - Re-Assessments/Exams Free Text/Narrative Re-Assessment/Exam: 11/30/20 17:49 I will give her a shot of rocephin and have her continue the clindamycin. I will also give her some norco for at home. Departure - Departure Time of Disposition: 18:00 Disposition: Home, Self-Care 01 Condition: Good Clinical Impression: Pain, dental, Dental abscess - Discharge Information *PRESCRIPTION DRUG MONITORING PROGRAM REVIEWED*: No *COPY OF PRESCRIPTION DRUG MONITORING REPORT IN PATIENT YVONNE: No Prescriptions: Hydrocodone/Acetaminophen [Hydrocodone-Acetamin 5-325 mg] 1 - 2 each PO Q6HR PRN #15 tablet PRN Reason: Pain Referrals: Basilia Delacruz NP [Primary Care Provider] - 1 Week Additional Instructions: Keep taking the clindamycin as prescribed. Take tylenol for pain. If that does not help, try the hydrocodone. Please return if you are worse. Sepsis Event Note (ED) - Evaluation Sepsis Screening Result: No Definite Risk - Focused Exam Vital Signs: Vital Signs Temp Pulse Resp BP Pulse Ox 11/30/20 17:32 97.5 F 105 H 16 157/109 H 100 - My Orders Last 24 Hours: My Active Orders 11/30/20 17:45 cefTRIAXone 1 GM withLidocaine 1% 2.1 ML IM Onetime cefTRIAXone [Rocephin] 1 gm Lidocaine 1% [Xylocaine 1%] 2.1 ml IM ONETIME - Assessment/Plan Last 24 Hours: My Active Orders 11/30/20 17:45 cefTRIAXone 1 GM withLidocaine 1% 2.1 ML IM Onetime cefTRIAXone [Rocephin] 1 gm Lidocaine 1% [Xylocaine 1%] 2.1 ml IM ONETIME
== END 2020-11-30 18:03 | disposition home or self-care (01) ==
LOC: JD.ED 17:28
DX: K04.7 Periapical abscess without sinus (principal); I10 Essential (primary) hypertension; Z72.0 Tobacco use; Z88.0 Allergy status to penicillin; Z88.8 Allergy status to other drugs, medicaments and biological substances; Z79.899 Other long term (current) drug therapy
CPT/HCPCS: 96372; 99282; J0696; 99283

== ENCOUNTER 2021-01-24 17:47 | Emergency (ER) | payer MEDICAID ==
[2021-01-24 17:59] VITALS: BP 166/104; PULSE 100
[2021-01-24] MEDS ORDERED: Clindamycin HCl 150 MG Cap PO ONE (18:00)
[2021-01-24] MEDS ORDERED: Acetaminophen/HYDROcodone 325-5 MG Tab PO ONE (18:00)
--- NOTE | 2021-01-24 18:09 | EDM.PDOC ---
ED HPI GENERAL MEDICAL PROBLEM - General Chief Complaint: ENT Problem Stated Complaint: TOOTH ACHE Time Seen by Provider: 01/24/21 17:55 Source of Information: Reports: Patient, RN Notes Reviewed History Limitations: Reports: No Limitations - History of Present Illness INITIAL COMMENTS - FREE TEXT/NARRATIVE: Patient is a 30-year-old female who presents to the ED for her ongoing tooth issue. Patient was seen by a dentist, for her teeth, since the last time she was seen in this ER in November. She states that they had some difficulty, putting her under for anesthetic purposes, so she was not able to have the work- up completely done. She is scheduled to be seen again by this dentist on this coming . She states that she has been having ongoing pain and swelling to her right upper molar, and the area that was concerning the last time. She notes that her teeth are pressure sensitive as well. She has not had any fevers or chills, cough or shortness of breath, nausea/vomiting/diarrhea. She took some Tylenol at home, but this did not seem to help much. Right Upper Tooth/Teeth Pain Score (Numeric/FACES): 8 - Related Data Allergies Allergy/AdvReac Type Severity Reaction Status Date / Time ketorolac [From Toradol] Allergy Rash Verified 01/24/21 17:59 Penicillins Allergy Hives Verified 01/24/21 17:59 ibuprofen AdvReac Stomach Verified 01/24/21 17:59 Upset Home Meds: Home Meds hydroCHLOROthiazide [Microzide] 25 mg PO BID 08/08/19 [History] lisinopriL [Lisinopril] 1 tab PO DAILY 09/06/20 [History] Amitriptyline [Elavil] 10 mg PO BEDTIME 11/30/20 [History] Clindamycin HCl 300 mg PO TID 11/30/20 [History] Hydrocodone/Acetaminophen [Hydrocodone-Acetamin 5-325 mg] 1 - 2 each PO Q6HR PRN #15 tablet 11/30/20 [Rx] Clindamycin HCl 300 mg PO TID 7 Days #21 capsule 01/24/21 [Rx] Hydrocodone/Acetaminophen [Hydrocodone-Acetamin 5-325 mg] 1 each PO Q6H PRN #6 tablet 01/24/21 [Rx] Past Medical History HEENT History: Reports: Other (See Below) Other HEENT History: tooth pain, dental abcess, left eye trauma, left subconjnctival hematoma, visual changes Cardiovascular History: Reports: Hypertension Other Cardiovascular History: pt states has chronic hypertension for 5 years.- gestational hypertension Respiratory History: Reports: None Gastrointestinal History: Reports: GERD Genitourinary History: Reports: Other (See Below) Other Genitourinary History: CHRONIC 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: 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, Other (See Below) Other LABORATORY APPARATUS GLASS BLOWER History: bacterial vaginosis, irregular menses, laproscopy Musculoskeletal History: Reports: Other (See Below) Other Musculoskeletal History: 5th metatarsal fracture, left foot pain, low back pain Neurological History: Reports: Headaches, Chronic, Migraines Psychiatric History: Reports: Anxiety, Other (See Below) Endocrine/Metabolic History: Reports: None Hematologic History: Reports: None Immunologic History: Reports: None Oncologic (Cancer) History: Reports: None Dermatologic History: Reports: None - Infectious Disease History Infectious Disease History: Reports: None - Past Surgical History Head Surgeries/Procedures: Reports: None HEENT Surgical History: Reports: Tonsillectomy Cardiovascular Surgical History: Reports: None Respiratory Surgical History: Reports: None GI Surgical History: Reports: Other (See Below) Other GI Surgeries/Procedures: laparoscopy Female Surgical History: Reports: Hysterectomy, Tubal Ligation Endocrine Surgical History: Reports: None Neurological Surgical History: Reports: None Musculoskeletal Surgical History: Reports: None Oncologic Surgical History: Reports: None Dermatological Surgical History: Reports: None - History Comment History Comment: patient not wanting to cooperate all the time. Refuses to open mouth and etc. Has to be told a number of times to do something. Social & Family History - Family History Family Medical History: No Pertinent Family History Cardiac: Reports: Hypertension Endocrine/Metabolic: Reports: Diabetes, type II Oncologic: Reports: Leukemia - Tobacco Use Tobacco Use Status *Q: Current Every Day Tobacco User Years of Tobacco use: 9 Packs/Tins Daily: 0.3 - Caffeine Use Caffeine Use: Reports: Soda - Recreational Drug Use Recreational Drug Use: No ED ROS ENT - Review of Systems Review Of Systems: Comprehensive ROS is negative, except as noted in HPI. ED EXAM, ENT - Physical Exam Exam: See Below Exam Limited By: No Limitations General Appearance: Alert, WD/WN, No Apparent Distress Eye Exam: Bilateral Eye: EOMI, Normal Inspection, PERRL Mouth/Throat: Normal Inspection, Normal Gums, Normal Lips, Normal Oropharynx, Dental Pain. No: Dental Abcess Neck: Normal Inspection, Supple, Non-Tender, Full Range of Motion Respiratory/Chest: No Respiratory Distress, Lungs Clear, Normal Breath Sounds, No Accessory Muscle Use, Chest Non-Tender GI/Abdominal: Normal Bowel Sounds, Soft, Non-Tender, No Distention, No Mass Neurological: Alert, Oriented, Normal Cognition, No Motor/Sensory Deficits Psychiatric: Normal Affect, Normal Mood Skin: Warm, Dry, Intact, Normal Color, No Rash Course - Vital Signs Last Recorded V/S: Last Vital Signs Temp 97.4 F 01/24/21 17:56 Pulse 100 01/24/21 17:56 Resp 16 01/24/21 17:56 BP 166/104 H 01/24/21 17:56 Pulse Ox 100 01/24/21 17:56 - Orders/Labs/Meds Meds: Medications Discontinued Medications Generic Name Dose Route Start Last Admin Trade Name Freq PRN Reason Stop Dose Admin Hydrocodone Bitart/Acetaminophen 2 tab 01/24/21 18:00 Acetaminophen/Hydrocodone 325-5 Mg Tab PO 01/24/21 18:01 ONETIME ONE Clindamycin HCl 600 mg 01/24/21 18:00 Clindamycin Hcl 150 Mg Cap PO 01/24/21 18:01 ONETIME ONE - Re-Assessments/Exams Free Text/Narrative Re-Assessment/Exam: 01/24/21 18:06 Patient presents to the ER for her dental complaint, we will give her 1 tablet of clindamycin to start her antibiotic coverage, and [place] for pain. Departure - Departure Time of Disposition: 18:06 Disposition: Home, Self-Care 01 Condition: Good Clinical Impression: Pain due to dental caries - Discharge Information *PRESCRIPTION DRUG MONITORING PROGRAM REVIEWED*: Yes *COPY OF PRESCRIPTION DRUG MONITORING REPORT IN PATIENT YVONNE: No Prescriptions: Clindamycin HCl 300 mg PO TID 7 Days #21 capsule Hydrocodone/Acetaminophen [Hydrocodone-Acetamin 5-325 mg] 1 each PO Q6H PRN #6 tablet PRN Reason: Pain Referrals: Basilia Delacruz NP [Primary Care Provider] - Additional Instructions: You have been evaluated in the ED for your dental pain. You have been provided with a script for Clindamycin. Please take this medication as directed. (1 tab TID for 7 days or until gone). Please note this antibiotic can take up to 48 hours to provide coverage. If you do not notice an improvement in the swelling within 3 days time I recommend you seek care for reevaluation for change in antibiotics. This antibiotic can cause diarrhea, recommend that you start a probiotic while taking this medication. You were given a prescription for a strong pain medication, hydroc odone/acetaminophen 5/325 mg, please take 1 tab every 6 hours as needed for pain not relieved by Tylenol or ibuprofen alone. Please note this medication does contain Tylenol in it, so do not take more than 4000 mg in a 24-hour time span. These medications can be addictive, so please take as few as possible to achieve adequate pain control. These meds can also be quite constipating, recommend th at you increase your oral fluid intake and take a stool softener like MiraLAX while taking these medications. Do not drive while taking this medication. This medication was electronically sent to the [facility] located near [facility]. You may use hot pack/ ice packs to the affected area as tolerated in 15-20 minute intervals. Please attend all other previous appointments with dental providers as already scheduled. The antibiotic you are placed on today, should kick in by your appointment on , and this should not jeopardize your appointment. Please return to the ED if your symptoms change or worsen. Sepsis Event Note (ED) - Evaluation Sepsis Screening Result: No Definite Risk - Focused Exam Vital Signs: Vital Signs Temp Pulse Resp BP Pulse Ox 01/24/21 17:56 97.4 F 100 16 166/104 H 100
== END 2021-01-24 18:20 | disposition home or self-care (01) ==
LOC: JD.ED 17:47
DX: K02.9 Dental caries, unspecified (principal); I10 Essential (primary) hypertension; Z79.899 Other long term (current) drug therapy; Z88.1 Allergy status to other antibiotic agents; Z88.5 Allergy status to narcotic agent; Z72.0 Tobacco use
CPT/HCPCS: 99282; A9270; 99283

== ENCOUNTER 2021-05-05 20:17 | Emergency (ER) | payer MEDICAID ==
[2021-05-05 20:33] VITALS: BP 164/100; PULSE 106
[2021-05-05] MEDS ORDERED: Cephalexin 500 MG Cap PO ONE (20:36)
--- NOTE | 2021-05-05 20:41 | EDM.PDOC ---
ED HPI GENERAL MEDICAL PROBLEM - General Chief Complaint: ENT Problem Stated Complaint: TOOTH PAIN Time Seen by Provider: 05/05/21 20:27 Source of Information: Reports: Patient, RN Notes Reviewed History Limitations: Reports: No Limitations - History of Present Illness INITIAL COMMENTS - FREE TEXT/NARRATIVE: Patient is a 30-year-old female who presents to the ER for her right upper dental pain. Patient notes she has fairly poor dentition has been having issues with this for some time. She has seen the dentist, and they did start her on Keflex, as they are planning to do some work in this area. Notes that she went to see some family in [facility], and ended up inadvertently leaving her purse there which had her prescription for antibiotics in the purse. Note she has not able to get this back until next week Monday, so was wondering if we could continue her prescription for antibiotics here. Patient states that she is been using Tylenol for pain management. Patient denies any other sick-like symptoms, fever/chills, cough/shortness of breath, nausea/vomiting/diarrhea. Right Oral/Mouth Pain Score (Numeric/FACES): 7 - Related Data Allergies Allergy/AdvReac Type Severity Reaction Status Date / Time ketorolac [From Toradol] Allergy Rash Verified 05/05/21 20:33 Penicillins Allergy Hives Verified 05/05/21 20:33 ibuprofen AdvReac Stomach Verified 05/05/21 20:33 Upset Home Meds: Home Meds hydroCHLOROthiazide [Microzide] 25 mg PO BID 08/08/19 [History] lisinopriL [Lisinopril] 1 tab PO DAILY 09/06/20 [History] Amitriptyline [Elavil] 10 mg PO BEDTIME 11/30/20 [History] cephALEXin [Cephalexin] 500 mg PO TID 7 Days #21 capsule 05/05/21 [Rx] Past Medical History HEENT History: Reports: Other (See Below) Other HEENT History: tooth pain, dental abcess, left eye trauma, left subconjnctival hematoma, visual changes Cardiovascular History: Reports: Hypertension Other Cardiovascular History: pt states has chronic hypertension for 5 years.- gestational hypertension Respiratory History: Reports: None Gastrointestinal History: Reports: GERD Genitourinary History: Reports: Other (See Below) Other Genitourinary History: 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: 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, Other (See Below) Other GOLF TECHNICIAN History: bacterial vaginosis, irregular menses, laproscopy Musculoskeletal History: Reports: Other (See Below) Other Musculoskeletal History: 5th metatarsal fracture, left foot pain, low back pain Neurological History: Reports: Headaches, Chronic, Migraines Psychiatric History: Reports: Anxiety, Other (See Below) Endocrine/Metabolic History: Reports: None Hematologic History: Reports: None Immunologic History: Reports: None Oncologic (Cancer) History: Reports: None Dermatologic History: Reports: None - Infectious Disease History Infectious Disease History: Reports: None - Past Surgical History Head Surgeries/Procedures: Reports: None HEENT Surgical History: Reports: Tonsillectomy Cardiovascular Surgical History: Reports: None Respiratory Surgical History: Reports: None GI Surgical History: Reports: Other (See Below) Other GI Surgeries/Procedures: laparoscopy Female Surgical History: Reports: Hysterectomy, Tubal Ligation Endocrine Surgical History: Reports: None Neurological Surgical History: Reports: None Musculoskeletal Surgical History: Reports: None Oncologic Surgical History: Reports: None Dermatological Surgical History: Reports: None - History Comment History Comment: patient not wanting to cooperate all the time. Refuses to open mouth and etc. Has to be told a number of times to do something. Social & Family History - Family History Family Medical History: No Pertinent Family History Cardiac: Reports: Hypertension Endocrine/Metabolic: Reports: Diabetes, type II Oncologic: Reports: Leukemia - Tobacco Use Tobacco Use Status *Q: Current Every Day Tobacco User Years of Tobacco use: 5 Packs/Tins Daily: 0.5 - Caffeine Use Caffeine Use: Reports: Soda - Recreational Drug Use Recreational Drug Use: No ED ROS ENT - Review of Systems Review Of Systems: Comprehensive ROS is negative, except as noted in HPI. ED EXAM, ENT - Physical Exam Exam: See Below Exam Limited By: No Limitations General Appearance: Alert, WD/WN, No Apparent Distress Mouth/Throat: Dental Pain (Right upper jaw; dental caries noted) Respiratory/Chest: No Respiratory Distress, Lungs Clear, Normal Breath Sounds, No Accessory Muscle Use, Chest Non-Tender Cardiovascular: Normal Peripheral Pulses, Regular Rate, Rhythm, No Edema Neurological: Alert, Oriented, Normal Cognition, No Motor/Sensory Deficits Psychiatric: Normal Affect, Normal Mood Skin: Warm, Dry, Intact, Normal Color, No Rash Course - Vital Signs Last Recorded V/S: Last Vital Signs Temp 98 F 05/05/21 20:31 Pulse 106 H 05/05/21 20:31 Resp 16 05/05/21 20:31 BP 164/100 H 05/05/21 20:31 Pulse Ox 99 05/05/21 20:31 - Orders/Labs/Meds Orders: Active Orders 24 hr Category Date Time Status cephALEXin [Keflex] Med 05/05/21 20:36 Once 500 mg PO ONETIME ONE - Re-Assessments/Exams Free Text/Narrative Re-Assessment/Exam: 05/05/21 20:42 Patient presents to the ER for her dental complaint, we will continue her antibiotics, states that they were Keflex 500 mg 3 times a day she was to take them for 10 days, and has taken a total of 3 days of the prescription before she left them at [facility] house in [facility]. We will give her pre scription for 7 days with antibiotics and have her follow-up with her dental provider at the next appointment. Departure - Departure Time of Disposition: 20:38 Disposition: Home, Self-Care 01 Condition: Good Clinical Impression: Pain due to dental caries - Discharge Information *PRESCRIPTION DRUG MONITORING PROGRAM REVIEWED*: No *COPY OF PRESCRIPTION DRUG MONITORING REPORT IN PATIENT YVONNE: No Prescriptions: cephALEXin [Cephalexin] 500 mg PO TID 7 Days #21 capsule Referrals: Basilia Delacruz NP [Primary Care Provider] - Forms: ED Department Discharge Additional Instructions: You have been evaluated in the ED for your dental pain. You have been provided with a script for Cephalexin. Please take this medication as directed. (1 tab TID for 7 days or until gone). Please note this antibiotic can take up to 48 hours to provide coverage. If you do not notice an improvement in the swelling within 3 days time I recommend you seek care for reevaluation for change in antibiotics. This medication was electronically sent to the [facility] located near [facility]. You may use hot pack/ ice packs to the affected area as tolerated in 15-20 minute intervals. Please continue to work with your dental provider, to provide ongoing management of your dental complaint. You may use Tylenol every 6 hours as needed for ongoing pain management. Please return to the ED if your symptoms change or worsen. Sepsis Event Note (ED) - Evaluation Sepsis Screening Result: No Definite Risk - Focused Exam Vital Signs: Vital Signs Temp Pulse Resp BP Pulse Ox 05/05/21 20:31 98 F 106 H 16 164/100 H 99 - My Orders Last 24 Hours: My Active Orders 05/05/21 20:36 cephALEXin [Keflex] 500 mg PO ONETIME ONE - Assessment/Plan Last 24 Hours: My Active Orders 05/05/21 20:36 cephALEXin [Keflex] 500 mg PO ONETIME ONE
== END 2021-05-05 21:21 | disposition home or self-care (01) ==
LOC: JD.ED 20:17
DX: K02.9 Dental caries, unspecified (principal); I10 Essential (primary) hypertension; Z72.0 Tobacco use; Z88.6 Allergy status to analgesic agent; Z88.0 Allergy status to penicillin; Z79.899 Other long term (current) drug therapy
CPT/HCPCS: 99282; A9270; 99283

== ENCOUNTER 2021-06-10 15:20 | Emergency (ER) | payer MEDICAID ==
[2021-06-10 15:34] VITALS: PULSE 89
[2021-06-10 15:37] VITALS: BP 187/155
--- NOTE | 2021-06-10 16:12 | EDM.PDOC ---
ED HPI GENERAL MEDICAL PROBLEM - General Chief Complaint: Upper Extremity Injury/Pain Stated Complaint: PALM AND WRIST PAIN, PT HAD SURGERY ON 06-08 Time Seen by Provider: 06/10/21 15:45 Source of Information: Reports: Patient History Limitations: Reports: No Limitations - History of Present Illness INITIAL COMMENTS - FREE TEXT/NARRATIVE: 30-year-old female presents the emergency department today with complaints of left wrist pain. Per the patient's report she had carpal tunnel surgery [address] Viera at [facility] in [place]. Patient reports that she was sent home with 5 pain pills and states that these are gone and she is still having pain she states that she called her surgeon's clinic and they told her to come to the emergency department. Left Wrist Pain Score (Numeric/FACES): 8 - Related Data Allergies Allergy/AdvReac Type Severity Reaction Status Date / Time ketorolac [From Toradol] Allergy Rash Verified 06/10/21 15:34 Penicillins Allergy Hives Verified 06/10/21 15:34 ibuprofen AdvReac Stomach Verified 06/10/21 15:34 Upset Home Meds: Home Meds hydroCHLOROthiazide [Microzide] 25 mg PO BID 08/08/19 [History] lisinopriL [Lisinopril] 1 tab PO DAILY 09/06/20 [History] Amitriptyline [Elavil] 10 mg PO BEDTIME 11/30/20 [History] Hydrocodone/Acetaminophen [HYDROcodone-Acetaminophen 5-325 MG] 1 each PO Q6H PRN #5 tab 06/10/21 [Rx] Past Medical History HEENT History: Reports: Other (See Below) Other HEENT History: tooth pain, dental abcess, left eye trauma, left subconjnctival hematoma, visual changes Cardiovascular History: Reports: Hypertension Other Cardiovascular History: pt states has chronic hypertension for 5 years.- gestational hypertension Respiratory History: Reports: None Gastrointestinal History: Reports: GERD Genitourinary History: Reports: Other (See Below) Other Genitourinary History: CHRONIC 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: 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, Other (See Below) Other CUSTOMER SERVICE ADVISOR History: bacterial vaginosis, irregular menses, laproscopy Musculoskeletal History: Reports: Other (See Below) Other Musculoskeletal History: 5th metatarsal fracture, left foot pain, low back pain Neurological History: Reports: Headaches, Chronic, Migraines Psychiatric History: Reports: Anxiety, Other (See Below) Endocrine/Metabolic History: Reports: None Hematologic History: Reports: None Immunologic History: Reports: None Oncologic (Cancer) History: Reports: None Dermatologic History: Reports: None - Infectious Disease History Infectious Disease History: Reports: None - Past Surgical History Head Surgeries/Procedures: Reports: None HEENT Surgical History: Reports: Tonsillectomy Cardiovascular Surgical History: Reports: None Respiratory Surgical History: Reports: None GI Surgical History: Reports: Other (See Below) Other GI Surgeries/Procedures: laparoscopy Female Surgical History: Reports: Hysterectomy, Tubal Ligation Endocrine Surgical History: Reports: None Neurological Surgical History: Reports: None Musculoskeletal Surgical History: Reports: None Oncologic Surgical History: Reports: None Dermatological Surgical History: Reports: None - History Comment History Comment: patient not wanting to cooperate all the time. Refuses to open mouth and etc. Has to be told a number of times to do something. Social & Family History - Family History Family Medical History: No Pertinent Family History Cardiac: Reports: Hypertension Endocrine/Metabolic: Reports: Diabetes, type II Oncologic: Reports: Leukemia - Tobacco Use Tobacco Use Status *Q: Current Every Day Tobacco User Years of Tobacco use: 9 Packs/Tins Daily: 1 - Caffeine Use Caffeine Use: Reports: Soda - Recreational Drug Use Recreational Drug Use: No Review of Systems - Review of Systems Review Of Systems: Comprehensive ROS is negative, except as noted in HPI. ED EXAM, GENERAL - Physical Exam Exam: See Below Exam Limited By: No Limitations General Appearance: Alert, WD/WN, No Apparent Distress Ears: Normal External Exam, Hearing Grossly Normal Nose: Normal Inspection Throat/Mouth: Normal Inspection, Normal Lips, Normal Voice, No Airway Compromise Head: Atraumatic Neck: Normal Inspection, Supple Respiratory/Chest: No Respiratory Distress, No Accessory Muscle Use Cardiovascular: Normal Peripheral Pulses, Regular Rate, Rhythm GI/Abdominal: No Distention (Female) Exam: Deferred Rectal (Female) Exam: Deferred Back Exam: Normal Inspection Extremities: No: Normal Inspection (Surgical incision noted to medial aspect of left wrist. Surgical incision appears clean dry and intact. There is no sign of infection or drainage appreciated) Neurological: Alert, Oriented, Normal Cognition Psychiatric: Normal Affect, Normal Mood Skin Exam: Warm, Dry, Normal Color, No Rash, Wound/Incision (Dry and intact; no signs or symptoms of infection or drainage) Lymphatic: No Adenopathy Course - Vital Signs Text/Narrative:: As stated above patient presents with left wrist pain postop day 3 of carpal tunnel repair. She states she is out of pain pills and still having a significant amount of pain. CMS is positive. Incision site is clean dry and intact and there does not appear to be any infection. Left hand and wrist are swollen but that is to be expected. Will send a prescription for the patient to have [facility] [employer]. I have discussed with the patient that she needs to use only 1 tab every 4 hours as needed for more severe pain otherwise she can be taking Tylenol every 4 hours. Her pain should be decreasing at this time as she is postop day 3 and it should get better over the next couple of days. I also notified her that if she has any further issues regarding this that she needs to follow-up with her surgeons clinic. She does verbalize understanding of this today. Last Recorded V/S: Last Vital Signs Temp 97 F 06/10/21 15:32 Pulse 89 06/10/21 15:32 Resp 16 06/10/21 15:32 BP 187/155 H 06/10/21 15:32 Pulse Ox 98 06/10/21 15:32 Departure - Departure Time of Disposition: 16:13 Disposition: Home, Self-Care 01 Condition: Good Clinical Impression: Post-op pain - Discharge Information Prescriptions: Hydrocodone/Acetaminophen [HYDROcodone-Acetaminophen 5-325 MG] 1 each PO Q6H PRN #5 tab PRN Reason: Pain (Severe 7-10) Referrals: Basilia Delacruz NP [Primary Care Provider] - Additional Instructions: You were seen in the emergency department today with complaints of postop pain status post carpal tunnel repair. Surgical incision looks clean with no signs or symptoms of infection. I have sent prescription for hydrocodone tabs to your pharmacy. As discussed recommend that you take only 1 tab alternating every 4 hours with Tylenol. Pain and swelling are generally the worst 48 hours after surgery and then you should start to feel significantly better. Keep the left arm elevated on a pillow as much as possible. Recommend that if you have any further problems with pain or signs of infection that you follow-up with Dr. Viera's clinic. Sepsis Event Note (ED) - Evaluation Sepsis Screening Result: No Definite Risk - Focused Exam Vital Signs: Vital Signs Temp Pulse Resp BP Pulse Ox 06/10/21 15:32 97 F 89 16 187/155 H 98
== END 2021-06-10 16:42 | disposition home or self-care (01) ==
LOC: JD.ED 15:20
DX: G89.18 Other acute postprocedural pain (principal); M25.532 Pain in left wrist; I10 Essential (primary) hypertension; Z72.0 Tobacco use; Z88.0 Allergy status to penicillin; Z88.8 Allergy status to other drugs, medicaments and biological substances; Z88.6 Allergy status to analgesic agent; Z79.899 Other long term (current) drug therapy
CPT/HCPCS: 99283

== ENCOUNTER 2021-07-24 11:23 | Emergency (ER) | payer MEDICAID ==
[2021-07-24] MEDS ORDERED: Methocarbamol 500 MG Tab PO ONE (12:14)
[2021-07-24] MEDS ORDERED: Acetaminophen 325 MG Tab PO ONE (12:14)
--- NOTE | 2021-07-24 12:16 | EDM.PDOC ---
ED HPI GENERAL MEDICAL PROBLEM - General Chief Complaint: Back Pain or Injury Stated Complaint: BACK PAIN Time Seen by Provider: 07/24/21 12:05 Source of Information: Reports: Patient History Limitations: Reports: No Limitations - History of Present Illness INITIAL COMMENTS - FREE TEXT/NARRATIVE: Patient 31-year-old female no significant past medical history other than obesity presenting with chief complaint of lower back pain. Patient reports 2- week history of low back pain. Patient is complaining of left lower back pain with radiation to the left buttocks and left posterior leg. Pain is improved with chiropractic treatment as well as methocarbamol in the past. Patient states she has had issues with her back ever since 2013. She denies any fevers, traumatic injuries, saddle paresthesias, urinary incontinence, history of cancer, history of drug abuse. Patient has not taken methocarbamol for several days as she ran out of her prescription. Has an appoint with her primary care on Monday. Lower Back Pain Score (Numeric/FACES): 8 - Related Data Allergies Allergy/AdvReac Type Severity Reaction Status Date / Time ketorolac [From Toradol] Allergy Rash Verified 07/24/21 11:39 Penicillins Allergy Hives Verified 07/24/21 11:39 ibuprofen AdvReac Stomach Verified 07/24/21 11:39 Upset Home Meds: Home Meds hydroCHLOROthiazide [Microzide] 25 mg PO DAILY 08/08/19 [History] lisinopriL [Lisinopril] 20 mg PO DAILY 09/06/20 [History] Amitriptyline [Elavil] 30 mg PO BEDTIME 11/30/20 [History] methocarbamoL [Methocarbamol] 750 mg PO TID #30 tablet 07/24/21 [Rx] Past Medical History HEENT History: Reports: Other (See Below) Other HEENT History: tooth pain, dental abcess, left eye trauma, left subconjnctival hematoma, visual changes Cardiovascular History: Reports: Hypertension Other Cardiovascular History: pt states has chronic hypertension for 5 years.- gestational hypertension Respiratory History: Reports: Bronchitis, Recurrent Gastrointestinal History: Reports: GERD Genitourinary History: Reports: UTI, Recurrent, Other (See Below) Other Genitourinary History: CHRONIC BACTERIAL VAGINITIS 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: Reports: 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, Other (See Below) Other 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: bacterial vaginosis, irregular menses, laproscopy Musculoskeletal History: Reports: Other (See Below) Other Musculoskeletal History: 5th metatarsal fracture, left foot pain, low back pain Neurological History: Reports: Headaches, Chronic, Migraines Psychiatric History: Reports: Anxiety, Other (See Below) Other Psychiatric History: clostrophobic Endocrine/Metabolic History: Reports: Obesity/BMI 30+ Hematologic History: Reports: None Immunologic History: Reports: None Oncologic (Cancer) History: Reports: None Dermatologic History: Reports: None - Infectious Disease History Infectious Disease History: Reports: Chicken Pox - Past Surgical History HEENT Surgical History: Reports: Tonsillectomy GI Surgical History: Reports: Other (See Below) Other GI Surgeries/Procedures: laparoscopy Female Surgical History: Reports: Hysterectomy, Tubal Ligation - History Comment History Comment: patient not wanting to cooperate all the time. Refuses to open mouth and etc. Has to be told a number of times to do something. Social & Family History - Family History Family Medical History: No Pertinent Family History Cardiac: Reports: Hypertension Endocrine/Metabolic: Reports: Diabetes, type II Oncologic: Reports: Leukemia - Caffeine Use Caffeine Use: Reports: None - Recreational Drug Use Recreational Drug Use: No ED ROS GENERAL - Review of Systems Review Of Systems: See Below Free Text/Narrative/Comment: In addition to that documented in the HPI above, the additional ROS was obtained: Constitutional: Denies fevers or chills Eyes: Denies vision changes ENMT: Denies sore throat CV: Denies chest pain Resp: Denies SOB GI: Denies vomiting or diarrhea : Denies painful urination MSK: Denies recent trauma Skin: Denies new rashes Neuro: Denies new numbness or tingling or weakness Endocrine: Denies unexpected weight loss Heme: Denies bleeding disorders ED EXAM,LOWER BACK PAIN/INJURY - Physical Exam Exam: See Below Text/Narrative:: I have reviewed the triage vital signs Const: Well nourished, well developed, appears stated age Eyes: Pupils Equal and reactive to light bilaterally, no conjunctival injection HENT: No signs of trauma or swelling, Neck supple without meningismus CV: Regular Rate Rhythm, Warm, well-perfused extremities RESP: Unlabored respiratory effort GI: soft, non-tender, non-distended, no masses MSK: No gross deformities appreciated. No midline spinal tenderness. Skin: Warm, dry. No rashes Neuro: Alert, helper [employer] II-XII grossly intact. Sensation and motor function of extremities grossly intact. Psych: Appropriate mood and affect. Course - Vital Signs Last Recorded V/S: Last Vital Signs Temp 36.8 C 07/24/21 12:50 Pulse 110 H 07/24/21 12:50 Resp 16 07/24/21 12:50 BP 186/116 H 07/24/21 12:50 Pulse Ox 99 07/24/21 12:50 - Orders/Labs/Meds Meds: Medications Discontinued Medications Generic Name Dose Route Start Last Admin Trade Name Latha PRN Reason Stop Dose Admin Acetaminophen 650 mg 07/24/21 12:14 07/24/21 12:45 Acetaminophen 325 Mg Tab PO 07/24/21 12:15 Not Given NOW ONE Methocarbamol 1,000 mg 07/24/21 12:14 07/24/21 12:45 Methocarbamol 500 Mg Tab PO 07/24/21 12:15 1,000 mg ONETIME ONE Administration Departure - Departure Time of Disposition: 12:15 Disposition: Home, Self-Care 01 Clinical Impression: Low back pain - Discharge Information Prescriptions: methocarbamoL [Methocarbamol] 750 mg PO TID #30 tablet Instructions: Chronic Back Pain, [id number] Referrals: Basilia Delacruz NP [Primary Care Provider] - Forms: ED Department Discharge Sepsis Event Note (ED) - Evaluation Sepsis Screening Result: No Definite Risk - Focused Exam Vital Signs: Vital Signs Temp Pulse Resp BP Pulse Ox 07/24/21 12:50 36.8 C 110 H 16 186/116 H 99 07/24/21 11:35 36.6 C 90 18 194/120 H 98 - Assessment/Plan Assessment:: Patient 31 female presenting to the emergency with chief complaint of low back pain. Patient had no evidence of significant pathology. No major red flags noticed. Patient's neurologic exam is intact. No evidence of cauda equina syndrome. Likely some component of sciatica with radiation down the back of the leg. No indication for emergent imaging at this time. Patient treated with muscle relaxer as this is helped her in the past. Return precautions given as usual. Patient agrees with plan of care.
[2021-07-24 12:58] VITALS: BP 186/116; PULSE 110
== END 2021-07-24 12:55 | disposition home or self-care (01) ==
LOC: JD.ED 11:23
DX: M54.50 Low back pain, unspecified (principal); I10 Essential (primary) hypertension; E66.9 Obesity, unspecified; Z68.42 Body mass index [BMI] 45.0-49.9, adult; Z88.5 Allergy status to narcotic agent; Z88.0 Allergy status to penicillin; Z88.6 Allergy status to analgesic agent; Z79.899 Other long term (current) drug therapy
CPT/HCPCS: 99283; A9270

== ENCOUNTER 2021-09-17 19:23 | Emergency (ER) | payer MEDICAID ==
[2021-09-17 19:40] VITALS: BP 210/148; PULSE 102
[2021-09-17] MEDS ORDERED: Acetaminophen/oxyCODONE 325-5 MG Tab PO ONE (20:01)
--- NOTE | 2021-09-17 20:07 | EDM.PDOC ---
ED HPI GENERAL MEDICAL PROBLEM - General Chief Complaint: Back Pain or Injury Stated Complaint: FALL/BACK PAIN Time Seen by Provider: 09/17/21 19:29 Source of Information: Reports: Patient, RN Notes Reviewed History Limitations: Reports: No Limitations - History of Present Illness INITIAL COMMENTS - FREE TEXT/NARRATIVE: Patient is a 31-year-old female who presents to the ER for the evaluation of her lower back pain. States on Monday she was trying to walk down her stairs at home, when she became entangled with her cat, and fell down the stairs. She did go to the walk-in clinic for initial management had a CT performed and was noted to not have any sort of fractures or other abnormalities. Patient states that she has been getting by with Tylenol for the last few days however the pain has increased quite a bit and she is not getting enough pain control with Tylenol alone. Has an allergy to ibuprofen so she cannot take that. She did call her primary care provider but she is not been able to get in with them until next week Monday. She states that the pain was so much to bear she did not think she could wait. Not complaining of any numbness or tingling into her feet, no worsening symptoms however states the pain is just too much to bear and has not been able to get much sleep. Patient denies any other sick-like symptoms, fever/chills, cough/shortness of breath, nausea/vomiting/diarrhea. Lower Back Pain Score (Numeric/FACES): 7 - Related Data Allergies Allergy/AdvReac Type Severity Reaction Status Date / Time ketorolac [From Toradol] Allergy Rash Verified 09/17/21 19:40 Penicillins Allergy Hives Verified 09/17/21 19:40 ibuprofen AdvReac Stomach Verified 09/17/21 19:40 Upset Home Meds: Home Meds hydroCHLOROthiazide [Microzide] 25 mg PO DAILY 08/08/19 [History] lisinopriL [Lisinopril] 20 mg PO DAILY 09/06/20 [History] Amitriptyline [Elavil] 30 mg PO BEDTIME 11/30/20 [History] methocarbamoL [Methocarbamol] 750 mg PO TID #30 tablet 07/24/21 [Rx] Acetaminophen/oxyCODONE [Percocet 325-5 MG] 1 each PO Q6H PRN #20 tab 09/17/21 [ Rx] Orphenadrine [Norflex] 100 mg PO BID PRN #20 tab 09/17/21 [Rx] Past Medical History HEENT History: Reports: Other (See Below) Other HEENT History: tooth pain, dental abcess, left eye trauma, left subconjnctival hematoma, visual changes Cardiovascular History: Reports: Hypertension Other Cardiovascular History: pt states has chronic hypertension for 5 years.- gestational hypertension Respiratory History: Reports: Bronchitis, Recurrent Gastrointestinal History: Reports: GERD Genitourinary History: Reports: UTI, Recurrent, Other (See Below) Other Genitourinary History: CHRONIC BACTERIAL VAGINITIS NOTE TAKER History: Reports: 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, Other (See Below) Other NOTE TAKER History: bacterial vaginosis, irregular menses, laproscopy Musculoskeletal History: Reports: Other (See Below) Other Musculoskeletal History: 5th metatarsal fracture, left foot pain, low back pain Neurological History: Reports: Headaches, Chronic, Migraines Psychiatric History: Reports: Anxiety, Other (See Below) Other Psychiatric History: claustrophobic Endocrine/Metabolic History: Reports: Obesity/BMI 30+ Hematologic History: Reports: None Immunologic History: Reports: None Oncologic (Cancer) History: Reports: None Dermatologic History: Reports: None - Infectious Disease History Infectious Disease History: Reports: Chicken Pox - Past Surgical History Head Surgeries/Procedures: Reports: None HEENT Surgical History: Reports: Tonsillectomy Cardiovascular Surgical History: Reports: None Respiratory Surgical History: Reports: None GI Surgical History: Reports: Other (See Below) Other GI Surgeries/Procedures: laparoscopy Female Surgical History: Reports: Hysterectomy, Tubal Ligation Endocrine Surgical History: Reports: None Neurological Surgical History: Reports: None Musculoskeletal Surgical History: Reports: None Oncologic Surgical History: Reports: None Dermatological Surgical History: Reports: None - History Comment History Comment: patient not wanting to cooperate all the time. Refuses to open mouth and etc. Has to be told a number of times to do something. Social & Family History - Family History Family Medical History: No Pertinent Family History Cardiac: Reports: Hypertension Endocrine/Metabolic: Reports: Diabetes, type II Oncologic: Reports: Leukemia - Tobacco Use Tobacco Use Status *Q: Current Every Day Tobacco User Years of Tobacco use: 10 Packs/Tins Daily: 1 - Caffeine Use Caffeine Use: Reports: None ED ROS GENERAL - Review of Systems Review Of Systems: Comprehensive ROS is negative, except as noted in HPI. ED EXAM,LOWER BACK PAIN/INJURY - Physical Exam Exam: See Below Exam Limited By: No Limitations General Appearance: Alert, WD/WN, No Apparent Distress Respiratory/Chest: No Respiratory Distress, Lungs Clear, Normal Breath Sounds, No Accessory Muscle Use, Chest Non-Tender Cardiovascular: Normal Peripheral Pulses, Regular Rate, Rhythm, No Edema GI/Abdominal: Normal Bowel Sounds, Soft, Non-Tender, No Distention, No Mass Extremities: Normal Inspection, Normal Capillary Refill Neurological: Alert, Normal Mood/Affect, Normal Dorsiflexion, Normal Plantar Flexion, Normal Gait, Oriented x 3. No: Straight Leg Raise (L), Straight Leg Raise (R), Saddle Anesthesia Psychiatric: Normal Affect, Normal Mood Skin Exam: Warm, Dry, Intact, Normal Color, No Rash Course - Vital Signs Last Recorded V/S: Last Vital Signs Temp 98.1 F 09/17/21 19:37 Pulse 102 H 09/17/21 19:37 Resp 16 09/17/21 19:37 BP 210/148 H 09/17/21 19:37 Pulse Ox 98 09/17/21 19:37 - Orders/Labs/Meds Meds: Medications Discontinued Medications Generic Name Dose Route Start Last Admin Trade Name Freq PRN Reason Stop Dose Admin Oxycodone/Acetaminophen 2 tab 09/17/21 20:01 Acetaminophen/Oxycodone 325-5 Mg Tab PO 09/17/21 20:02 ONETIME ONE - Re-Assessments/Exams Free Text/Narrative Re-Assessment/Exam: 09/17/21 20:05 Patient presents to the ER for her back pain, we will go ahead and treat her with some Percocet in the ER and discharged home with few tablets of Percocet and some Norflex for management. I will cautioned her not to use these together if she is to use the Norflex she should take the Tylenol for management of pain. Patient verbalized understanding. Departure - Departure Time of Disposition: 20:05 Disposition: Home, Self-Care 01 Condition: Good Clinical Impression: Back pain Qualifiers: Back pain location: low back pain Chronicity: acute Back pain laterality: bilateral Sciatica presence: without sciatica Qualified Code(s): M54.50 - Low back pain, unspecified - Discharge Information *PRESCRIPTION DRUG MONITORING PROGRAM REVIEWED*: Yes *COPY OF PRESCRIPTION DRUG MONITORING REPORT IN PATIENT YVONNE: No Prescriptions: Orphenadrine [Norflex] 100 mg PO BID PRN #20 tab PRN Reason: Spasms Acetaminophen/oxyCODONE [Percocet 325-5 MG] 1 each PO Q6H PRN #20 tab PRN Reason: Pain Instructions: Pain Medicine Instructions, [id number], Acute Back Pain, Adult Referrals: Basilia Delacruz NP [Primary Care Provider] - Additional Instructions: You have been evaluated in the ED for your low back pain. You were treated with oral pain medications in the ER and this seemed to help relieve most your symptoms. Please use ice as tolerated to the affected area. You may elevate the affected area to provide further relief from swelling. You may take Tylenol 500 mg q6 hrs for pain relief. Please do so until you have a tolerable level of pain with activity. Do not exceed 4000mg Tylenol in a 24 hour time period. You were given a prescription for a strong pain medication, oxycodone/acetaminophen 5/325, please take 1 tab every 6 hours as needed for pain not relieved by Tylenol or ibuprofen alone. Please note this does contain Tylenol in it, so do not take more than 4000 mg in a 24-hour time span. These medications can be addictive, so please take as few as possible to achieve adequate pain control. These meds can also be quite constipating, recommend that you increase your oral fluid intake and take a stool softener like MiraLAX while taking these medications. You were also given a prescription for Norflex, a muscle relaxer you may take 1 tablet 2 times a day as needed for ongoing muscle spasms. I would caution use of both the Norflex and Percocet together as this can cause increased sedation. If you are going to use the Norflex try to use Tylenol for pain management. This medication was electronically sent to the [facility] located near [facility]. You may go there tomorrow during normal business hours and pick these medications up and take as directed. Please call Ortho for follow-up and further evaluation Dr. Orozco is our orthopedic surgeon, his office number is [phone]. Please call and set up an appointment as soon as possible for further management. Please return to ED if your symptoms should change or worsen. Sepsis Event Note (ED) - Evaluation Sepsis Screening Result: No Definite Risk - Focused Exam Vital Signs: Vital Signs Temp Pulse Resp BP Pulse Ox 09/17/21 19:37 98.1 F 102 H 16 210/148 H 98
== END 2021-09-17 20:19 | disposition home or self-care (01) ==
LOC: JD.ED 19:23
DX: M54.50 Low back pain, unspecified (principal); I10 Essential (primary) hypertension; E66.9 Obesity, unspecified; Z68.42 Body mass index [BMI] 45.0-49.9, adult; Z88.0 Allergy status to penicillin; Z88.6 Allergy status to analgesic agent; Z88.8 Allergy status to other drugs, medicaments and biological substances; Z79.899 Other long term (current) drug therapy; Z72.0 Tobacco use
CPT/HCPCS: 99283; A9270

== ENCOUNTER 2022-04-09 14:32 | Emergency (ER) | payer MEDICAID ==
[2022-04-09 14:44] VITALS: PULSE 98
[2022-04-09] MEDS ORDERED: Acetaminophen/Codeine 300-30 MG Tab PO ONE (15:09)
[2022-04-09 15:43] VITALS: BP 172/99
== END 2022-04-09 15:40 | disposition home or self-care (01) ==
LOC: JD.ED 14:32
DX: K02.9 Dental caries, unspecified (principal); I10 Essential (primary) hypertension; F17.210 Nicotine dependence, cigarettes, uncomplicated; E66.9 Obesity, unspecified; Z68.30 Body mass index [BMI] 30.0-30.9, adult; Z88.0 Allergy status to penicillin; Z88.6 Allergy status to analgesic agent; Z88.8 Allergy status to other drugs, medicaments and biological substances; Z79.899 Other long term (current) drug therapy
CPT/HCPCS: 99282; A9270; 99284

== ENCOUNTER 2022-08-30 18:05 | Emergency (ER) | payer MEDICAID ==
[2022-08-30 18:25] VITALS: BP 179/109
[2022-08-30] MEDS ORDERED: HYDROmorphone 1 MG/ML Syringe IM ONE (19:03)
[2022-08-30] MEDS ORDERED: Metoclopramide 10 MG/2 ML SDV IM ONE (19:03)
[2022-08-30] MEDS ORDERED: diphenhydrAMINE 50 MG/ML SDV IM ONE (19:03)
[2022-08-30 20:28] VITALS: PULSE 93
== END 2022-08-30 20:28 | disposition home or self-care (01) ==
LOC: JD.ED 18:05
DX: J01.90 Acute sinusitis, unspecified (principal); I10 Essential (primary) hypertension; E66.9 Obesity, unspecified; Z68.42 Body mass index [BMI] 45.0-49.9, adult; Z88.5 Allergy status to narcotic agent; Z88.0 Allergy status to penicillin; Z88.6 Allergy status to analgesic agent; Z79.899 Other long term (current) drug therapy
CPT/HCPCS: 96372; 99283; J1170; J1200; J2765

== ENCOUNTER 2022-09-08 17:57 | Emergency (ER) | payer MEDICAID ==
[2022-09-08 18:15] VITALS: BP 178/108; PULSE 94
[2022-09-08] MEDS ORDERED: Acetaminophen 325 MG Tab PO ONE (18:34)
[2022-09-08] MEDS ORDERED: Metoclopramide 10 MG Tab PO ONE (18:34)
[2022-09-08] MEDS ORDERED: diphenhydrAMINE 25 MG Cap PO ONE (18:34)
== END 2022-09-08 21:37 | disposition home or self-care (01) ==
LOC: JD.ED 17:57
DX: S00.03XA Contusion of scalp, initial encounter (principal); I10 Essential (primary) hypertension; E66.9 Obesity, unspecified; Z88.5 Allergy status to narcotic agent; Z88.0 Allergy status to penicillin; Z88.6 Allergy status to analgesic agent; Z79.899 Other long term (current) drug therapy; W10.9XXA Fall (on) (from) unspecified stairs and steps, initial encounter; Y93.01 Activity, walking, marching and hiking
CPT/HCPCS: 70450; 70486; 99284; A9270

== ENCOUNTER 2022-10-23 16:19 | Emergency (ER) | payer MEDICAID ==
[2022-10-23 18:02] VITALS: BP 163/87; PULSE 89
[2022-10-23] MEDS ORDERED: Metoclopramide 10 MG/2 ML SDV IM ONE (19:08)
[2022-10-23] MEDS ORDERED: HYDROmorphone 1 MG/ML Syringe IM ONE (19:09)
[2022-10-23] MEDS ORDERED: diphenhydrAMINE 50 MG/ML SDV IM ONE (19:09)
== END 2022-10-23 21:00 | disposition home or self-care (01) ==
LOC: JD.ED 16:19
DX: G43.909 Migraine, unspecified, not intractable, without status migrainosus (principal); I10 Essential (primary) hypertension; E66.9 Obesity, unspecified; Z68.42 Body mass index [BMI] 45.0-49.9, adult; Z88.0 Allergy status to penicillin; Z88.8 Allergy status to other drugs, medicaments and biological substances; Z79.899 Other long term (current) drug therapy; Z87.891 Personal history of nicotine dependence
CPT/HCPCS: 96372; 99283; J1170; J1200; J2765

== ENCOUNTER 2022-12-04 11:33 | Emergency (ER) | payer MEDICAID ==
[2022-12-04] MEDS ORDERED: diphenhydrAMINE 50 MG/ML SDV IM ONE (12:40)
[2022-12-04] MEDS ORDERED: HYDROmorphone 1 MG/ML Syringe IM ONE (12:40)
[2022-12-04] MEDS ORDERED: Metoclopramide 10 MG/2 ML SDV IM ONE (12:40)
[2022-12-04 14:17] VITALS: BP 118/72; PULSE 80
== END 2022-12-04 14:16 | disposition home or self-care (01) ==
LOC: JD.ED 11:33
DX: G43.909 Migraine, unspecified, not intractable, without status migrainosus (principal); I10 Essential (primary) hypertension; E66.9 Obesity, unspecified; Z68.42 Body mass index [BMI] 45.0-49.9, adult; Z88.5 Allergy status to narcotic agent; Z88.0 Allergy status to penicillin; Z88.6 Allergy status to analgesic agent; Z79.899 Other long term (current) drug therapy; Z72.0 Tobacco use
CPT/HCPCS: 90686; 99283; J1170; J1200; J2765; 99282

== ENCOUNTER 2023-01-08 09:50 | Emergency (ER) | payer MEDICAID ==
[2023-01-08 10:13] VITALS: BP 151/92; PULSE 104
[2023-01-08] MEDS ORDERED: Metoclopramide 10 MG/2 ML SDV IM ONE (10:33)
[2023-01-08] MEDS ORDERED: HYDROmorphone 1 MG/ML Syringe IM ONE (10:33)
[2023-01-08] MEDS ORDERED: diphenhydrAMINE 50 MG/ML SDV IM STA (10:34)
== END 2023-01-08 12:27 | disposition home or self-care (01) ==
LOC: JD.ED 09:50
DX: R51.9 Headache, unspecified (principal); R11.0 Nausea; I10 Essential (primary) hypertension; E66.9 Obesity, unspecified; Z68.42 Body mass index [BMI] 45.0-49.9, adult; Z87.891 Personal history of nicotine dependence; Z88.5 Allergy status to narcotic agent; Z88.0 Allergy status to penicillin; Z88.6 Allergy status to analgesic agent; Z79.899 Other long term (current) drug therapy
CPT/HCPCS: 96372; 99283; J1170; J1200; J2765

== ENCOUNTER 2023-01-22 09:47 | Emergency (ER) | payer MEDICAID ==
[2023-01-22] MEDS ORDERED: HYDROmorphone 1 MG/ML Syringe IM ONE (10:19)
[2023-01-22 12:27] VITALS: BP 113/69; PULSE 82
== END 2023-01-22 12:25 | disposition home or self-care (01) ==
LOC: JD.ED 09:47
DX: M54.6 Pain in thoracic spine (principal); M54.50 Low back pain, unspecified; I10 Essential (primary) hypertension; E66.9 Obesity, unspecified; F17.210 Nicotine dependence, cigarettes, uncomplicated; Z68.42 Body mass index [BMI] 45.0-49.9, adult; Z86.16 Personal history of COVID-19; Z88.5 Allergy status to narcotic agent; Z88.0 Allergy status to penicillin; Z88.6 Allergy status to analgesic agent; Z79.899 Other long term (current) drug therapy; W10.9XXA Fall (on) (from) unspecified stairs and steps, initial encounter
CPT/HCPCS: 71101; 72100; 96372; 99283; J1170

== ENCOUNTER 2023-04-18 16:40 | Emergency (ER) | payer MEDICAID ==
[2023-04-18 16:49] VITALS: BP 147/91; PULSE 101
[2023-04-18] MEDS ORDERED: diphenhydrAMINE 50 MG/ML SDV IM ONE (17:04)
[2023-04-18] MEDS ORDERED: Metoclopramide 10 MG/2 ML SDV IM ONE (17:04)
[2023-04-18] MEDS ORDERED: HYDROmorphone 1 MG/ML Syringe IM ONE (17:04)
== END 2023-04-18 19:01 | disposition home or self-care (01) ==
LOC: JD.ED 16:40
DX: G43.909 Migraine, unspecified, not intractable, without status migrainosus (principal); I10 Essential (primary) hypertension; E66.9 Obesity, unspecified; Z68.41 Body mass index [BMI] 40.0-44.9, adult; Z88.0 Allergy status to penicillin; Z88.8 Allergy status to other drugs, medicaments and biological substances; Z86.16 Personal history of COVID-19
CPT/HCPCS: 96372; 99283; J1170; J1200; J2765

== ENCOUNTER 2023-05-29 19:00 | Emergency (ER) | payer MEDICAID ==
[2023-05-29] MEDS ORDERED: Metoclopramide 10 MG/2 ML SDV IM ONE ×2 (19:38→19:50)
[2023-05-29] MEDS ORDERED: HYDROmorphone 1 MG/ML Syringe IM ONE (19:38)
[2023-05-29] MEDS ORDERED: Naloxone 0.4 MG/ML SDV IVPUSH PRN (19:38)
[2023-05-29] MEDS ORDERED: diphenhydrAMINE 50 MG/ML SDV IM ONE (19:39)
[2023-05-29 21:10] VITALS: BP 152/93; PULSE 74
== END 2023-05-29 20:07 | disposition home or self-care (01) ==
LOC: JD.ED 19:00
DX: R51.9 Headache, unspecified (principal); I10 Essential (primary) hypertension; K21.9 Gastro-esophageal reflux disease without esophagitis; E66.9 Obesity, unspecified; Z86.16 Personal history of COVID-19; Z88.0 Allergy status to penicillin; Z88.6 Allergy status to analgesic agent; Z88.5 Allergy status to narcotic agent; Z68.42 Body mass index [BMI] 45.0-49.9, adult
CPT/HCPCS: 96372; 99283; J1170; J1200; J2765; 99284

== ENCOUNTER 2023-06-12 17:26 | Emergency (ER) | payer MEDICAID | END 2023-06-12 19:30 | disposition left against medical advice (07) | LOC: JD.ED 17:26 | DX: Z53.21 Procedure and treatment not carried out due to patient leaving prior to being seen by health care provider (principal) ==

== ENCOUNTER 2023-06-17 09:15 | Emergency (ER) | payer MEDICAID ==
[2023-06-17 09:30] VITALS: BP 163/87; PULSE 87
== END 2023-06-17 11:07 | disposition left against medical advice (07) ==
LOC: JD.ED 09:15
DX: Z53.21 Procedure and treatment not carried out due to patient leaving prior to being seen by health care provider (principal)

== ENCOUNTER 2023-07-17 16:27 | Emergency (ER) | payer MEDICAID ==
[2023-07-17] MEDS ORDERED: HYDROmorphone 0.5 MG/0.5 ML Syringe IVPUSH ONE (18:10)
[2023-07-17] MEDS ORDERED: Naloxone 0.4 MG/ML SDV IVPUSH PRN (18:11)
[2023-07-17] MEDS ORDERED: Metoclopramide 10 MG/2 ML SDV IVPUSH ONE (18:11)
[2023-07-17] MEDS ORDERED: diphenhydrAMINE 50 MG/ML SDV IVPUSH ONE (18:13)
[2023-07-17] MEDS ORDERED: Sodium Chloride 0.9% 1,000 ML IV SCH (18:15)
[2023-07-17 18:47] VITALS: BP 134/95; PULSE 84
== END 2023-07-17 19:29 | disposition home or self-care (01) ==
LOC: JD.ED 16:27
DX: G43.909 Migraine, unspecified, not intractable, without status migrainosus (principal); E66.9 Obesity, unspecified; K21.9 Gastro-esophageal reflux disease without esophagitis; I10 Essential (primary) hypertension; F17.210 Nicotine dependence, cigarettes, uncomplicated; Z88.0 Allergy status to penicillin; Z88.6 Allergy status to analgesic agent; Z88.8 Allergy status to other drugs, medicaments and biological substances; Z79.899 Other long term (current) drug therapy; Z68.33 Body mass index [BMI] 33.0-33.9, adult
CPT/HCPCS: 96361; 96374; 96375; 99283; J1170; J1200; J2765; J7030; 99284

== ENCOUNTER 2023-08-19 13:58 | Emergency (ER) | payer MEDICAID ==
[2023-08-19] MEDS ORDERED: HYDROmorphone 0.5 MG/0.5 ML Syringe IVPUSH ONE (15:05)
[2023-08-19] MEDS ORDERED: Metoclopramide 10 MG/2 ML SDV IVPUSH ONE (15:05)
[2023-08-19] MEDS ORDERED: Sodium Chloride 0.9% 1,000 ML IV STA (15:05)
[2023-08-19] MEDS ORDERED: diphenhydrAMINE 50 MG/ML SDV IVPUSH ONE (15:05)
[2023-08-19 16:18] VITALS: BP 128/97; PULSE 79
== END 2023-08-19 16:24 | disposition home or self-care (01) ==
LOC: JD.ED 13:58
DX: G43.909 Migraine, unspecified, not intractable, without status migrainosus (principal); I10 Essential (primary) hypertension; E66.9 Obesity, unspecified; Z86.16 Personal history of COVID-19; Z90.710 Acquired absence of both cervix and uterus; Z68.41 Body mass index [BMI] 40.0-44.9, adult; Z88.0 Allergy status to penicillin; Z88.6 Allergy status to analgesic agent; Z79.899 Other long term (current) drug therapy
CPT/HCPCS: 96374; 96375; 99283; J1170; J1200; J2765; J7030; 99284

== ENCOUNTER 2023-09-02 15:31 | Emergency (ER) | payer MEDICAID ==
[2023-09-02 15:41] VITALS: BP 160/113; PULSE 117
[2023-09-02] MEDS ORDERED: Prochlorperazine 10 MG in Sodium Chloride 0.9% 50 ML IV ONE (16:46)
[2023-09-02] MEDS ORDERED: diphenhydrAMINE 50 MG/ML SDV IVPUSH ONE (16:47)
[2023-09-02] MEDS ORDERED: Lactated Ringers 1,000 ML IV SCH (17:00)
== END 2023-09-02 17:30 | disposition left against medical advice (07) ==
LOC: JD.ED 15:31
DX: G43.909 Migraine, unspecified, not intractable, without status migrainosus (principal); I10 Essential (primary) hypertension; E66.9 Obesity, unspecified; Z68.41 Body mass index [BMI] 40.0-44.9, adult; Z86.16 Personal history of COVID-19; Z88.5 Allergy status to narcotic agent; Z88.0 Allergy status to penicillin; Z88.8 Allergy status to other drugs, medicaments and biological substances; Z79.899 Other long term (current) drug therapy
CPT/HCPCS: 96365; 96375; 99283; J0780; J1200; J3490; J7120

== ENCOUNTER 2023-09-26 10:58 | Emergency (ER) | payer MEDICAID ==
[2023-09-26] MEDS ORDERED: Acetaminophen 325 MG Tab PO ONE (11:34)
[2023-09-26] MEDS ORDERED: Acetaminophen/oxyCODONE 325-5 MG Tab PO ONE (12:29)
[2023-09-26 13:36] VITALS: BP 141/97; PULSE 82
== END 2023-09-26 13:10 | disposition home or self-care (01) ==
LOC: JD.ED 10:58
DX: S20.211A Contusion of right front wall of thorax, initial encounter (principal); I10 Essential (primary) hypertension; K21.9 Gastro-esophageal reflux disease without esophagitis; E66.9 Obesity, unspecified; Z86.16 Personal history of COVID-19; Z90.710 Acquired absence of both cervix and uterus; Z79.899 Other long term (current) drug therapy; Z88.0 Allergy status to penicillin; Z88.6 Allergy status to analgesic agent; Z88.8 Allergy status to other drugs, medicaments and biological substances; Z68.42 Body mass index [BMI] 45.0-49.9, adult; W00.0XXA Fall on same level due to ice and snow, initial encounter
CPT/HCPCS: 71101; 99283; A9270

== ENCOUNTER 2024-02-03 19:12 | Emergency (ER) | payer MEDICAID ==
[2024-02-03 19:32] VITALS: BP 176/115; PULSE 87
[2024-02-03] MEDS: HYDROmorphone 1 MG/ML Syringe IM ONE (20:01)
== END 2024-02-03 20:12 | disposition home or self-care (01) ==
LOC: JD.ED 19:12
DX: M54.42 Lumbago with sciatica, left side (principal); I10 Essential (primary) hypertension; Z88.5 Allergy status to narcotic agent; Z88.0 Allergy status to penicillin; Z88.8 Allergy status to other drugs, medicaments and biological substances; Z88.6 Allergy status to analgesic agent; Z79.899 Other long term (current) drug therapy; Z86.16 Personal history of COVID-19; Z90.710 Acquired absence of both cervix and uterus
CPT/HCPCS: 96372; 99283; J1170

== ENCOUNTER 2024-02-23 14:38 | Emergency (ER) | payer MEDICAID ==
[2024-02-23] MEDS: Sodium Chloride 0.9% 1,000 ML IV ONE (16:26)
[2024-02-23] MEDS: hydrALAZINE 20 MG/ML SDV IVPUSH ONE (16:26)
[2024-02-23] MEDS: diphenhydrAMINE 50 MG/ML SDV IVPUSH ONE (16:26)
[2024-02-23] MEDS: HYDROmorphone 0.5 MG/0.5 ML Syringe IVPUSH ONE (16:27)
[2024-02-23] MEDS: Metoclopramide 10 MG/2 ML SDV IVPUSH ONE (16:28)
[2024-02-23] MEDS: cloNIDine 0.1 MG Tab PO ONE (17:57)
[2024-02-23] MEDS: Acetaminophen/oxyCODONE 325-5 MG Tab PO ONE (19:38)
[2024-02-24 00:16] VITALS: BP 140/87; PULSE 86
== END 2024-02-23 19:43 | disposition home or self-care (01) ==
LOC: JD.ED 14:38
DX: G44.209 Tension-type headache, unspecified, not intractable (principal); G43.909 Migraine, unspecified, not intractable, without status migrainosus; I10 Essential (primary) hypertension; J20.9 Acute bronchitis, unspecified; E66.9 Obesity, unspecified; Z86.16 Personal history of COVID-19; Z90.710 Acquired absence of both cervix and uterus; F17.210 Nicotine dependence, cigarettes, uncomplicated; Z79.899 Other long term (current) drug therapy; Z88.0 Allergy status to penicillin; Z88.8 Allergy status to other drugs, medicaments and biological substances; Z68.42 Body mass index [BMI] 45.0-49.9, adult
CPT/HCPCS: 96361; 96374; 96375; 99283; A9270; J0360; J1170; J1200; J2765; J7030

== ENCOUNTER 2024-04-26 19:45 | Emergency (ER) | payer MEDICAID ==
[2024-04-26] MEDS ORDERED: Sodium Chloride 0.9% 10 ML Syringe FLUSH PRN (20:19)
[2024-04-26] MEDS: Metoclopramide 10 MG/2 ML SDV IM ONE (21:11)
[2024-04-26] MEDS: Sodium Chloride 0.9% 1,000 ML IV ONE (21:12)
[2024-04-26] MEDS: diphenhydrAMINE 50 MG/ML SDV IM ONE (21:12)
[2024-04-26] MEDS: diphenhydrAMINE 50 MG/ML SDV IVPUSH ONE (21:12)
[2024-04-26] MEDS: Metoclopramide 10 MG/2 ML SDV IVPUSH ONE (21:13)
[2024-04-26 23:46] VITALS: BP 125/74; PULSE 62
== END 2024-04-26 22:40 | disposition home or self-care (01) ==
LOC: JD.ED 19:45
DX: G43.909 Migraine, unspecified, not intractable, without status migrainosus (principal); I10 Essential (primary) hypertension; J40 Bronchitis, not specified as acute or chronic; K21.9 Gastro-esophageal reflux disease without esophagitis; E66.9 Obesity, unspecified; Z68.42 Body mass index [BMI] 45.0-49.9, adult; Z79.899 Other long term (current) drug therapy; Z88.8 Allergy status to other drugs, medicaments and biological substances; Z88.0 Allergy status to penicillin
CPT/HCPCS: 96372; 99283; J1200; J2765

== ENCOUNTER 2024-06-17 19:22 | Emergency (ER) | payer MEDICAID ==
[2024-06-17] MEDS: Triamcinolone Acetonide 40 MG/ML 1 ML SDV INJECT ONE (21:46)
[2024-06-17] MEDS: tiZANidine 4 MG Tab PO ONE (21:47)
[2024-06-17 22:18] VITALS: BP 158/89; PULSE 89
== END 2024-06-17 22:11 | disposition home or self-care (01) ==
LOC: JD.ED 19:22
DX: M54.16 Radiculopathy, lumbar region (principal); I10 Essential (primary) hypertension; E66.9 Obesity, unspecified; Z90.710 Acquired absence of both cervix and uterus; Z79.899 Other long term (current) drug therapy; Z88.0 Allergy status to penicillin; Z88.6 Allergy status to analgesic agent; Z88.8 Allergy status to other drugs, medicaments and biological substances
CPT/HCPCS: 72131; 96372; 99283; A9270; J3301

== ENCOUNTER 2024-07-13 19:12 | Emergency (ER) | payer MEDICAID ==
[2024-07-13 19:27] VITALS: BP 159/102; PULSE 86
[2024-07-13] MEDS: traMADol 50 MG Tab PO ONE (20:48)
== END 2024-07-13 21:14 | disposition home or self-care (01) ==
LOC: JD.ED 19:12
DX: S70.12XA Contusion of left thigh, initial encounter (principal); I10 Essential (primary) hypertension; K21.9 Gastro-esophageal reflux disease without esophagitis; E66.9 Obesity, unspecified; Z79.899 Other long term (current) drug therapy; Z88.5 Allergy status to narcotic agent; Z88.6 Allergy status to analgesic agent; Z88.8 Allergy status to other drugs, medicaments and biological substances; Z68.41 Body mass index [BMI] 40.0-44.9, adult; W18.30XA Fall on same level, unspecified, initial encounter
CPT/HCPCS: 73503; 99283; A9270

== ENCOUNTER 2024-08-14 15:20 | Emergency (ER) | payer MEDICAID ==
[2024-08-14 15:39] VITALS: BP 153/88; PULSE 86
[2024-08-14] MEDS: diphenhydrAMINE 50 MG/ML SDV IVPUSH ONE (16:56)
[2024-08-14] MEDS: Lactated Ringers 1,000 ML IV ONE (16:56)
[2024-08-14] MEDS: Metoclopramide 10 MG/2 ML SDV IVPUSH ONE (16:56)
[2024-08-14] MEDS ORDERED: Naloxone 0.4 MG/ML SDV IVPUSH PRN (17:33)
[2024-08-14] MEDS: Morphine 2 MG/ML SYRINGE IM ONE (17:49)
[2024-08-14] MEDS ORDERED: Doxycycline Monohydrate 100 MG Cap PO ONE (18:17)
== END 2024-08-14 18:40 | disposition home or self-care (01) ==
LOC: JD.ED 15:20
DX: G43.919 Migraine, unspecified, intractable, without status migrainosus (principal); J01.90 Acute sinusitis, unspecified; I10 Essential (primary) hypertension; E66.9 Obesity, unspecified; Z68.38 Body mass index [BMI] 38.0-38.9, adult; Z90.710 Acquired absence of both cervix and uterus; Z79.899 Other long term (current) drug therapy; Z88.6 Allergy status to analgesic agent; Z88.0 Allergy status to penicillin
CPT/HCPCS: 96361; 96372; 96374; 96375; 99283; J1200; J2270; J2765; J7120

== ENCOUNTER 2024-09-15 14:53 | Emergency (ER) | payer MEDICAID ==
[2024-09-15] MEDS ORDERED: Naloxone 0.4 MG/ML SDV IVPUSH PRN (15:34)
[2024-09-15] MEDS: Orphenadrine 60 MG/2 ML Inj IM ONE (15:39)
[2024-09-15] MEDS: Morphine 2 MG/ML SYRINGE IM ONE (15:40)
[2024-09-15 16:35] VITALS: BP 128/82; PULSE 84
== END 2024-09-15 16:35 | disposition home or self-care (01) ==
LOC: JD.ED 14:53
DX: M54.50 Low back pain, unspecified (principal); I10 Essential (primary) hypertension; E66.9 Obesity, unspecified; Z90.710 Acquired absence of both cervix and uterus; Z88.0 Allergy status to penicillin; Z88.6 Allergy status to analgesic agent; Z88.8 Allergy status to other drugs, medicaments and biological substances; Z79.899 Other long term (current) drug therapy; Z68.41 Body mass index [BMI] 40.0-44.9, adult; W00.0XXA Fall on same level due to ice and snow, initial encounter
CPT/HCPCS: 96372; 99283; J2270; J2360

== ENCOUNTER 2024-09-23 06:15 | Day surgery (SDC) | payer MEDICAID ==
[~2024-09-23 06:15] MED LIST changes: -Lactated Ringers 1,000 ML IV SCH; -Lidocaine 1%/Sod Bicarbonate in NS 8.4% 1 ML Syringe IDERM PRN; +Sodium Chloride 0.9% 10 ML Syringe FLUSH SCH
[2024-09-23] MEDS: Lactated Ringers 1,000 ML IV SCH (06:20)
[2024-09-23] MEDS ORDERED: fentaNYL 100 MCG/2 ML SDV ONE ×2 (06:51→07:26)
[2024-09-23] MEDS ORDERED: Lidocaine 1% 5 ML VIAL ONE (06:51)
[2024-09-23] MEDS ORDERED: Propofol 200 MG/20 ML SDV ONE (06:51)
[2024-09-23] MEDS ORDERED: Midazolam 1 MG/ML 2 ML SDV ONE (06:51)
[2024-09-23] MEDS ORDERED: ceFAZolin 2 GM Vial ONE (06:52)
[2024-09-23] MEDS: Bupivacaine 0.25% 10 ML SDV ONE (07:17)
[2024-09-23] MEDS: Lidocaine 1% 30 ML SDV ONE (07:17)
[2024-09-23] MEDS ORDERED: Ondansetron 4 MG/2 ML SDV IVPUSH PRN (07:19)
[2024-09-23] MEDS ORDERED: fentaNYL 100 MCG/2 ML SDV IVPUSH PRN (07:19)
[2024-09-23] MEDS ORDERED: HYDROmorphone 0.5 MG/0.5 ML Syringe IVPUSH PRN (07:19)
[2024-09-23] MEDS ORDERED: droPERidol 5 MG/2 ML SDV IVPUSH PRN (07:19)
[2024-09-23 07:56] VITALS: BP 144/79; PULSE 79
== END 2024-09-23 07:55 | disposition home or self-care (01) ==
LOC: JD.SDS 06:15
PROVIDERS: ATTEND Orthopaedic Surgery
DX: G56.11 Other lesions of median nerve, right upper limb (principal); I10 Essential (primary) hypertension; K21.9 Gastro-esophageal reflux disease without esophagitis; F41.9 Anxiety disorder, unspecified; Z87.891 Personal history of nicotine dependence; Z79.899 Other long term (current) drug therapy; Z88.0 Allergy status to penicillin
CPT/HCPCS: 64721; J0665; J0690; J2250; J2704; J3010; J7120; J3490

== ENCOUNTER 2024-10-10 10:35 | Emergency (ER) | payer MEDICAID ==
[2024-10-10 10:49] VITALS: BP 144/59; PULSE 90
[2024-10-10] MEDS: Acetaminophen/HYDROcodone 325-5 MG Tab PO ONE (11:43)
== END 2024-10-10 11:40 | disposition home or self-care (01) ==
LOC: JD.ED 10:35
DX: S63.91XA Sprain of unspecified part of right wrist and hand, initial encounter (principal); I10 Essential (primary) hypertension; E66.9 Obesity, unspecified; Z90.710 Acquired absence of both cervix and uterus; Z88.0 Allergy status to penicillin; Z88.6 Allergy status to analgesic agent; Z88.8 Allergy status to other drugs, medicaments and biological substances; Z79.899 Other long term (current) drug therapy; Z68.41 Body mass index [BMI] 40.0-44.9, adult; W19.XXXA Unspecified fall, initial encounter
CPT/HCPCS: 73130; 99283; A9270

== ENCOUNTER 2024-11-22 16:13 | Emergency (ER) | payer MEDICAID ==
[2024-11-22] MEDS ORDERED: Sodium Chloride 0.9% 10 ML Syringe FLUSH PRN (17:02)
[2024-11-22] MEDS: HYDROmorphone 0.5 MG/0.5 ML Syringe IVPUSH ONE (17:16)
[2024-11-22] MEDS: diphenhydrAMINE 50 MG/ML SDV IVPUSH ONE (17:16)
[2024-11-22] MEDS: Metoclopramide 10 MG/2 ML SDV IVPUSH ONE (17:16)
[2024-11-22 19:15] VITALS: BP 121/82; PULSE 78
== END 2024-11-22 18:25 | disposition home or self-care (01) ==
LOC: JD.ED 16:13
DX: G43.919 Migraine, unspecified, intractable, without status migrainosus (principal); I10 Essential (primary) hypertension; K21.9 Gastro-esophageal reflux disease without esophagitis; E66.9 Obesity, unspecified; Z90.710 Acquired absence of both cervix and uterus; Z79.899 Other long term (current) drug therapy; Z88.8 Allergy status to other drugs, medicaments and biological substances; Z88.6 Allergy status to analgesic agent; Z88.0 Allergy status to penicillin; Z68.41 Body mass index [BMI] 40.0-44.9, adult
CPT/HCPCS: 96374; 96375; 99283-25; J1200; J2765

== ENCOUNTER 2024-11-29 17:21 | Emergency (ER) | payer MEDICAID ==
[2024-11-29 17:34] VITALS: BP 147/67; PULSE 94
[2024-11-29] MEDS ORDERED: HYDROmorphone 1 MG/ML Syringe IVPUSH ONE (17:51)
[2024-11-29] MEDS: HYDROmorphone 1 MG/ML Syringe IM ONE (18:13)
== END 2024-11-29 18:58 | disposition home or self-care (01) ==
LOC: JD.ED 17:21
DX: M54.42 Lumbago with sciatica, left side (principal); I10 Essential (primary) hypertension; E66.9 Obesity, unspecified; Z68.42 Body mass index [BMI] 45.0-49.9, adult; Z90.710 Acquired absence of both cervix and uterus; Z88.0 Allergy status to penicillin; Z88.5 Allergy status to narcotic agent; Z88.6 Allergy status to analgesic agent; Z88.8 Allergy status to other drugs, medicaments and biological substances; Z79.899 Other long term (current) drug therapy; W01.0XXA Fall on same level from slipping, tripping and stumbling without subsequent striking against object, initial encounter; Y99.0 Civilian activity done for income or pay
CPT/HCPCS: 72100; 96372; 99283; J1171

== ENCOUNTER 2024-12-06 15:00 | Emergency (ER) | payer MEDICAID | END 2024-12-06 17:15 | disposition left against medical advice (07) | LOC: JD.ED 15:00 | DX: Z53.21 Procedure and treatment not carried out due to patient leaving prior to being seen by health care provider (principal) ==

== ENCOUNTER 2024-12-07 07:36 | Emergency (ER) | payer MEDICAID ==
[2024-12-07] MEDS: Acetaminophen 325 MG Tab PO ONE (08:07)
[2024-12-07] MEDS: traMADol 50 MG Tab PO ONE (08:08)
[2024-12-07 08:21] LABS: APPEARANCE,URINE CLEAR (Clear); BILIRUBIN,URINE NEGATIVE (Negative); COLOR,URINE YELLOW (Yellow); GLUCOSE,URINE NEGATIVE (Negative); KETONES,URINE NEGATIVE (Negative); LEUKOCYTE ESTERASE,URINE NEGATIVE (Negative); NITRITE,URINE NEGATIVE (Negative); OCCULT BLOOD,URINE NEGATIVE (Negative); PROTEIN,URINE NEGATIVE (Negative); UROBILINOGEN,URINE 0.2 (0.2-1.0)
[2024-12-07 09:31] VITALS: BP 155/90; PULSE 87
== END 2024-12-07 09:32 | disposition home or self-care (01) ==
LOC: JD.ED 07:36
DX: R10.31 Right lower quadrant pain (principal); I10 Essential (primary) hypertension; Z88.5 Allergy status to narcotic agent; Z88.0 Allergy status to penicillin; Z88.8 Allergy status to other drugs, medicaments and biological substances; Z88.6 Allergy status to analgesic agent; Z79.899 Other long term (current) drug therapy
CPT/HCPCS: 76830; 76857; 81003; 99284; A9270; 99283

== ENCOUNTER 2024-12-31 19:53 | Emergency (ER) | payer MEDICAID ==
[2024-12-31 20:04] VITALS: BP 194/100; PULSE 100
== END 2024-12-31 20:24 | disposition home or self-care (01) ==
LOC: JD.ED 19:53
DX: S76.011A Strain of muscle, fascia and tendon of right hip, initial encounter (principal); I10 Essential (primary) hypertension; E66.9 Obesity, unspecified; Z90.710 Acquired absence of both cervix and uterus; Z68.41 Body mass index [BMI] 40.0-44.9, adult; Z88.0 Allergy status to penicillin; Z88.8 Allergy status to other drugs, medicaments and biological substances; Z79.899 Other long term (current) drug therapy; W19.XXXA Unspecified fall, initial encounter
CPT/HCPCS: 99283

== ENCOUNTER 2025-07-05 16:54 | Emergency (ER) | payer MEDICAID ==
[2025-07-05] MEDS ORDERED: Sodium Chloride 0.9% 10 ML Syringe FLUSH PRN (17:31)
[2025-07-05 18:03] LABS: BASOPHILS ABSOLUTE AUTO 0.0 K/mm3 (0.0-0.2); BASOPHILS PERCENT AUTO 0.2 % (0.0-1.0); EOSINOPHILS ABSOLUTE AUTO 0.0 K/mm3 (0.0-0.4); EOSINOPHILS PERCENT AUTO 0.1 % (0.0-6.0); IMMATURE GRAN ABSOLUTE AUTO 0.03 K/mm3 (0.00-0.05); IMMATURE GRAN PERCENT AUTO 0.3 % (0.0-0.4); LYMPHOCYTES ABSOLUTE AUTO 4.8 K/mm3 (1.0-4.8); LYMPHOCYTES PERCENT AUTO 40.0 % (24.0-44.0); MEAN PLATELET VOLUME 9.2 fl (9.4-12.3); MONOCYTES ABSOLUTE AUTO 1.0 K/mm3 (0.0-0.8); MONOCYTES PERCENT AUTO 8.2 % (0.0-8.0); NEUTROPHILS ABSOLUTE AUTO 6.2 K/mm3 (1.8-7.7); NEUTROPHILS PERCENT AUTO 51.2 % (41.0-71.0); NRBC ABSOLUTE 0.00 (0.00-0.02); NRBC PERCENT 0.0 % (0.0-0.2); PLATELET COUNT,PLT 272 K/mm3 (150-400); RED BLOOD CELL COUNT 3.63 M/mm3 (4.10-5.30); WHITE BLOOD CELL COUNT,WBC 11.98 K/mm3 (3.9-11.3)
[2025-07-05 18:29] LABS: A/G RATIO 1.2 (1-2); ALANINE AMINOTRANSFERASE,ALT 26.0 U/L (14-59); ASPARTATE AMNIOTRANSFERASE,AST 9.0 U/L (15-37); BILIRUBIN TOTAL 0.1 mg/dL (0.2-1.0); BLOOD UREA NITROGEN,BUN 13.0 mg/dL (7-18); CARBON DIOXIDE,CO2 30.0 mEq/L (21-32); CHLORIDE,CL 105.0 mEq/L (98-107); CREATININE 0.9 mg/dL (0.55-1.02); EST CRCL DRUG DOSING (CG) 146.67 mL/min; ESTIMATED GFR 87.0 mL/min (>60); GLUCOSE RANDOM 93.0 mg/dL (70-99); POTASSIUM,K 3.7 mEq/L (3.5-5.1); PROTEIN TOTAL,TP 6.5 g/dl (6.4-8.2); SODIUM,NA 139.0 mEq/L (136-145)
[2025-07-05 19:24] VITALS: BP 122/72; PULSE 81
== END 2025-07-05 19:23 | disposition home or self-care (01) ==
LOC: JD.ED 16:54
DX: R51.9 Headache, unspecified (principal); I10 Essential (primary) hypertension; K21.9 Gastro-esophageal reflux disease without esophagitis; E66.9 Obesity, unspecified; Z86.16 Personal history of COVID-19; Z79.899 Other long term (current) drug therapy; Z88.0 Allergy status to penicillin; Z88.6 Allergy status to analgesic agent; Z88.8 Allergy status to other drugs, medicaments and biological substances
CPT/HCPCS: 36415; 70450; 80053; 85025; 99284; A9270; 99283

== ENCOUNTER 2025-07-14 15:41 | Emergency (ER) | payer MEDICAID ==
[2025-07-14] MEDS: Acetaminophen/oxyCODONE 325-5 MG Tab PO ONE (17:47)
[2025-07-14 18:07] VITALS: BP 128/83; PULSE 89
== END 2025-07-14 17:55 | disposition home or self-care (01) ==
LOC: JD.ED 15:41
DX: J34.89 Other specified disorders of nose and nasal sinuses (principal); I10 Essential (primary) hypertension; K21.9 Gastro-esophageal reflux disease without esophagitis; Z86.16 Personal history of COVID-19; Z90.710 Acquired absence of both cervix and uterus; Z88.5 Allergy status to narcotic agent; Z88.0 Allergy status to penicillin; Z88.8 Allergy status to other drugs, medicaments and biological substances; Z79.899 Other long term (current) drug therapy
CPT/HCPCS: 70486; 99283; A9270; 99284